=== PATIENT | male | born 1975 | race African-American/Black ===

== ENCOUNTER 2018-08-15 06:09 | Inpatient (IN) | payer SELFPAY ==
[2018-08-15 06:33] LABS: Absolute Lymphocytes (CBC) 3.7 K/uL (0.7-4.9); Absolute Monocytes 0.7 K/uL (0.1-1.3); Absolute Neutrophil 4.1 K/uL (1.8-8.0); Basophils % 0.8 % (0-1.3); Eosinophils % 1.4 % (0-4.4); Hematocrit 43.3 % (39.6-49.0); Lymphocytes % 42.7 % (15.3-44.8); MPV 8.2 fL (7.6-11.3); Monocytes % 7.9 % (3.3-12.3); RBC Red Blood Cell Count 5.01 M/uL (4.33-5.43)
[2018-08-15] MEDS ORDERED: MORPHINE 4 MG/ML SYR ONE ×2 (06:37→07:33)
[2018-08-15] MEDS ORDERED: NA CHLORIDE 0.9% 1,000 ML ONE (06:38)
[2018-08-15] MEDS ORDERED: ONDANSETRON 4 MG/2 ML VIAL ONE (06:38)
[2018-08-15 06:51] LABS: ALT/SGPT 26 U/L (12-78); AST/SGOT 16 U/L (15-37); Albumin 3.7 g/dL (3.4-5.0); Alkaline Phosphatase 101 U/L (45-117); Bilirubin Direct < 0.1 mg/dL (0-0.2); Bilirubin Total 0.2 mg/dL (0.2-1.0); Lipase 66 U/L (73-393); Protein, Total 7.9 g/dL (6.4-8.2)
[2018-08-15 06:52] LABS: BUN Blood Urea Nitrogen 17 mg/dL (7-18); Bicarbonate 26 mmol/L (21-32); Glucose Level 121 mg/dL (74-106); Potassium 3.8 mmol/L (3.5-5.1); Sodium Level 142 mmol/L (136-145)
[2018-08-15] MEDS ORDERED: KETOROLAC 30 MG/ML INJ ONE (08:13)
--- NOTE | 2018-08-15 08:48 | RAD REPORT ---
EXAM DESCRIPTION: CT - Abdomen Pelvis W Contrast - 08/15/2018 8:27 am CLINICAL HISTORY: Abdominal pain. Diarrhea COMPARISON: 2016 TECHNIQUE: Computed axial tomography of the abdomen and pelvis was obtained. 100 cc Isovue-300 is ad ministered intravenously. Oral contrast was given. All CT scans are performed using dose optimization technique as appropriate and may include automated exposure control or mA/KV adjustment according to patient size. FINDINGS: The liver, spleen, pancreas, adrenals and right kidney appear unremarkable. A 4 centimeter left renal cyst containing calcification posteriorly is unchanged. The appendix is not seen. Diverticula stem from the colon. There is mild stranding adjacent to sigmoid colon. Small to moderate umbilical hernia contains fat IMPRESSION: Mild sigmoid diverticulitis
--- NOTE | 2018-08-15 09:05 | ER ---
Nurse's Notes [facility] Name: Pietro Maxwell Age: 43 yrs Sex: Male : 1975 Arrival Date: 08/15/2018 Time: 06:09 Bed 5 Private MD: Diagnosis: Diverticulitis of intestine, part unspecified, without perforation or abscess without bleeding Presentation: 08/15 06:20 Presenting complaint: Patient states: he is having abdominal pain since 0230 this bb morning with nausea also vomited x 1 and had 2 episodes of diarrhea. Pt has past history of pancreatitis and a bowel obstruction. Transition of care: patient was not received from another setting of care. Onset of symptoms was August 15, 2018 at 02:30. Risk Assessment: Do you want to hurt yourself or someone else? Patient reports no desire to harm self or others. Initial Sepsis Screen: Does the patient meet any 2 criteria? No. Patient's initial sepsis screen is negative. Does the patient have a suspected source of infection? No. Patient's initial sepsis screen is negative. Care prior to arrival: None. 06:20 Method Of Arrival: Ambulatory bb 06:20 Acuity: ELSA 3 bb Historical: - Allergies: 06:22 No Known Allergies; bb - Home Meds: 06:22 None [Active]; bb - PMHx: 06:22 Pancreatitis; bowel obstruction; bb - PSHx: 06:22 Cholecystectomy; bb - Immunization history:: Adult Immunizations up to date. - Social history:: Smoking status: Patient uses tobacco products, denies chronic smoking, but will smoke occasionally. - Ebola Screening: : No symptoms or risks identified at this time. Screenin:33 Abuse screen: Denies threats or abuse. Denies injuries from another. Nutritional ak1 screening: No deficits noted. Tuberculosis screening: No symptoms or risk factors identified. Fall Risk None identified. Assessment: 06:33 General: Appears uncomfortable, Behavior is calm, cooperative. Pain: Complains of pain ak1 in right lower quadrant and left lower quadrant. Neuro: No deficits noted. Cardiovascular: No deficits noted. Respiratory: No deficits noted. GI: Abdomen is round Abd is non tender X 4 quads. GI: Reports lower abdominal pain, nausea, since 0230. : No signs and/or symptoms were reported regarding the genitourinary system. EENT: No signs and/or symptoms were reported regarding the EENT system. Derm: No signs and/or symptoms reported regarding the dermatologic system. Musculoskeletal: No signs and/or symptoms reported regarding the musculoskeletal system. 06:49 Reassessment: Patient appears in no apparent distress at this time. No changes from ak1 previously documented assessment. Patient and/or family updated on plan of care and expected duration. Pain level reassessed. pt finished oral contrast bottle house quality control technician Mari notified. 07:01 Reassessment: report given to Shelley Monk RN and Chanda Diaz RN. ak1 07:30 Reassessment: Pt reports pain has increased again after initial morphine ss administration. Taryn Ballard NP notified. Additional dose of morphine ordered and administered. Pillow given for comfort. Pt is grateful for care received. Neuro: Level of Consciousness is awake, alert, obeys commands, Oriented to person, place, time, situation. Respiratory: Airway is patent Respiratory effort is even, unlabored, Respiratory pattern is regular, symmetrical. GI: Bowel sounds present X 4 quads. Reports lower abdominal pain, upper abdominal pain, cramping, nausea. Derm: Skin is intact, Skin is dry, Skin is pink, warm \T\ dry. normal. 07:33 Reassessment: awaiting for CT to be obtained. ss 08:21 Reassessment: Pt to CT at this time VIA wheelchair with ARTI Ratliff. ss 08:34 Reassessment: Pt back from CT now. ss 08:59 Reassessment: Taryn Balalrd NP at bedside discussing results and plan of care with ss patient and friend. 10:00 Reassessment: Patient appears in no apparent distress at this time. Patient and/or ss family updated on plan of care and expected duration. Pain level reassessed. Pt aware of admission for further evaluation, awaiting room assignment. 11:30 Reassessment: Patient appears in no apparent distress at this time. Patient and/or ss family updated on plan of care and expected duration. Pain level reassessed. awaiting room assignment. 12:29 Reassessment: Patient appears in no apparent distress at this time. Patient and/or ss family updated on plan of care and expected duration. Pain level reassessed. Patient is alert, oriented x 3, equal unlabored respirations, skin warm/dry/pink. pt reports pain is now 5/10. Still awaiting room assignment. Spoke with warehouse operations manager ESTHELA Waever who reports that bed assignment is pending awaiting discharge on floors. Patient states feeling better. Patient states symptoms have improved. 13:03 Reassessment: attempted to call report to second floor. Spoke with Katheryn who reports ss that it will be just a moment before the nurse can receive report. Vital Signs: 06:22 BP 140 / 95; Pulse 85; Resp 16 S; Temp 98.3(O); Pulse Ox 99% on R/A; Weight 117.93 kg bb (R); Height 6 ft. 0 in. (182.88 cm) (R); Pain 9/10; 07:36 BP 147 / 97; Pulse 80; Resp 18; Pulse Ox 98% ; sv 08:16 BP 133 / 79; Pulse 69; Resp 20; Pulse Ox 100% ; sv 12:24 BP 108 / 68; Pulse 68; Resp 18; Pulse Ox 100% ; sv 06:22 Body Mass Index 35.26 (117.93 kg, 182.88 cm) bb ED Course: 06:09 Patient arrived in ED. ds1 06:16 Taryn Ballard FNP-C is PHCP. kb 06:16 Radu Cross MD is Attending Physician. kb 06:21 Triage completed. bb 06:22 Arm band placed on Patient placed in an exam room, on a stretcher, on pulse oximetry. bb 06:32 Eun Rolon, RN is Primary Nurse. ak1 06:33 Patient has correct armband on for positive identification. Placed in gown. Bed in low ak1 position. Call light in reach. Side rails up X 1. Pulse ox on. NIBP on. 06:33 Initial lab(s) drawn, by me, sent to lab. Inserted saline lock: 22 gauge in right ak1 antecubital area, using aseptic technique. Blood collected. 08:25 CT Abd/Pelvis - W/Contrast In Process Unspecified. EDMS 09:04 Jackeline Girard MD is Hospitalizing Provider. kb 10:34 Urine Dipstick--Ancillary (enter results) Sent. sv 13:19 No provider procedures requiring assistance completed. ss 13:30 Patient admitted, IV remains in place. ss Administered Medications: 06:32 Drug: NS 0.9% 1000 ml Route: IV; Rate: 1000 ml; Site: right antecubital; ak1 09:02 Follow up: IV Status: Completed infusion; IV Intake: 1000ml ss 06:32 Drug: Zofran 4 mg Route: IVP; Site: right antecubital; ak1 06:50 Follow up: Response: No adverse reaction ak1 06:32 Drug: morphine 4 mg Route: IVP; Site: right antecubital; ak1 06:50 Follow up: Response: No adverse reaction ak1 07:30 Drug: morphine 4 mg Route: IVP; Site: right antecubital; ss 08:12 Follow up: Response: No adverse reaction; No change in condition ss 08:05 Drug: TORadol 30 mg Route: IVP; Site: right antecubital; ss 09:01 Follow up: Response: No adverse reaction; No change in condition ss 09:10 Drug: fentaNYL (PF) 50 mcg Route: IVP; Site: right antecubital; ss 10:07 Follow up: Response: No adverse reaction; Pain is decreased ss 09:15 Drug: Flagyl 500 mg Volume: 100 ml; Route: IVPB; Rate: 200 ml/hr; Infused Over: 30 ss mins; Site: right antecubital; 09:45 Follow up: IV Status: Completed infusion ss 10:08 Drug: Cipro 400 mg Volume: 200 ml; Route: IVPB; Infused Over: 60 mins; Site: right ss antecubital; 11:10 Follow up: Response: No adverse reaction; IV Status: Completed infusion; IV Intake: sv 200ml Intake: 09:02 IV: 1000ml; Total: 1000ml. ss 11:10 IV: 200ml; Total: 1200ml. sv Outcome: 09:05 Decision to Hospitalize by Provider. kb 13:20 Instructed on the need for admit. ss 13:30 Admitted to Med/surg accompanied by tech, via wheelchair, room 229, Report called to sherin Campa RN 13:30 Condition: good 13:31 Patient left the ED. ss Signatures: Dispatcher [employer] EDMS Taryn Ballard, MIGUEL SONI-Chanda Lima RN RN Indira Oliveira dsDonna Avila RN RN bb Smirch, Shelby, RN RN Eun Rolon RN RN ak1 Corrections: (The following items were deleted from the chart) : Discharged to home ambulatory, ss ss Condition: [facility] : Discharge instructions given to patient, family, Instructed on discharge ss instructions, follow up and referral plans. medication usage, Demonstrated understanding of instructions, follow-up care, medications, Prescriptions given X 1, ss : IV discontinued, intact, bleeding controlled, No redness/swelling at site. ss Pressure dressing applied, ss
--- NOTE | 2018-08-15 09:06 | EDPHYS ---
Physician Documentation [facility] Name: Pietro Maxwell Age: 43 yrs Sex: Male : 1975 Arrival Date: 08/15/2018 Time: 06:09 Bed 5 Private MD: ED Physician Radu Cross HPI: 08/15 06:38 This 43 yrs old Black Male presents to ER via Ambulatory with complaints of Dizziness, kb Abdominal Pain. 06:38 The patient presents with abdominal pain in the lower abdomen. Onset: The kb symptoms/episode began/occurred this morning, at 02:30. The symptoms do not radiate. Associated signs and symptoms: Pertinent positives: nausea and vomiting, Pertinent negatives: anorexia, blood in stools, chest pain, constipation, diarrhea, dysuria, fever, headache, hematuria, palpitations, shortness of breath, testicular pain, vomiting blood. The symptoms are described as constant. Modifying factors: The symptoms are alleviated by nothing, the symptoms are aggravated by nothing. Severity of pain: At its worst the pain was moderate in the emergency department the pain is unchanged. The patient has not experienced similar symptoms in the past. The patient has not recently seen a physician. Historical: - Allergies: 06:22 No Known Allergies; bb - Home Meds: 06:22 None [Active]; bb - PMHx: 06:22 Pancreatitis; bowel obstruction; bb - PSHx: 06:22 Cholecystectomy; bb - Immunization history:: Adult Immunizations up to date. - Social history:: Smoking status: Patient uses tobacco products, denies chronic smoking, but will smoke occasionally. - Ebola Screening: : No symptoms or risks identified at this time. ROS: 06:33 Constitutional: Negative for fever, chills, and weight loss, ENT: Negative for injury, kb pain, and discharge, Neck: Negative for injury, pain, and swelling, Cardiovascular: Negative for chest pain, palpitations, and edema, Respiratory: Negative for shortness of breath, cough, wheezing, and pleuritic chest pain, MS/Extremity: Negative for injury and deformity, Skin: Negative for injury, rash, and discoloration. 06:33 Abdomen/GI: Positive for abdominal pain, nausea and vomiting, Negative for diarrhea, constipation, abdominal cramps, abdominal distension, anorexia. 06:33 Neuro: Positive for dizziness, Negative for altered mental status, gait disturbance, headache, hearing loss, loss of consciousness, numbness, seizure activity, speech changes, syncope, near syncope, tingling, tinnitus, tremor, visual changes, weakness. Exam: 06:32 Constitutional: This is a well developed, well nourished patient who is awake, alert, kb and in no acute distress. Head/Face: Normocephalic, atraumatic. ENT: Nares patent. No nasal discharge, no septal abnormalities noted. Tympanic membranes are normal and external auditory canals are clear. Oropharynx with no redness, swelling, or masses, exudates, or evidence of obstruction, uvula midline. Mucous membranes moist. Neck: Trachea midline, no thyromegaly or masses palpated, and no cervical lymphadenopathy. Supple, full range of motion without nuchal rigidity, or vertebral point tenderness. No Meningismus. Chest/axilla: Normal chest wall appearance and motion. Nontender with no deformity. No lesions are appreciated. Cardiovascular: Regular rate and rhythm with a normal S1 and S2. No gallops, murmurs, or rubs. Normal PMI, no JVD. No pulse deficits. Respiratory: Lungs have equal breath sounds bilaterally, clear to auscultation and percussion. No rales, rhonchi or wheezes noted. No increased work of breathing, no retractions or nasal flaring. Skin: Warm, dry with normal turgor. Normal color with no rashes, no lesions, and no evidence of cellulitis. MS/ Extremity: Pulses equal, no cyanosis. Neurovascular intact. Full, normal range of motion. Neuro: Awake and alert, GCS 15, oriented to person, place, time, and situation. Cranial nerves II-XII grossly intact. Motor strength 5/5 in all extremities. Sensory grossly intact. Cerebellar exam normal. Normal gait. 06:32 Abdomen/GI: Inspection: obese Bowel sounds: normal, in all quadrants, Palpation: soft, in all quadrants, mild abdominal tenderness, in the left lower quadrant, moderate abdominal tenderness, in the right lower quadrant. Vital Signs: 06:22 BP 140 / 95; Pulse 85; Resp 16 S; Temp 98.3(O); Pulse Ox 99% on R/A; Weight 117.93 kg bb (R); Height 6 ft. 0 in. (182.88 cm) (R); Pain 9/10; 07:36 BP 147 / 97; Pulse 80; Resp 18; Pulse Ox 98% ; sv 08:16 BP 133 / 79; Pulse 69; Resp 20; Pulse Ox 100% ; sv 12:24 BP 108 / 68; Pulse 68; Resp 18; Pulse Ox 100% ; sv 06:22 Body Mass Index 35.26 (117.93 kg, 182.88 cm) bb MDM: 06:16 Patient medically screened. kb 06:32 Data reviewed: vital signs, nurses notes. Data interpreted: Pulse oximetry: on room air kb is 99 %. Interpretation: normal. 09:04 Counseling: I had a detailed discussion with the patient and/or guardian regarding: the kb historical points, exam findings, and any diagnostic results supporting the discharge/admit diagnosis, lab results, radiology results, the need for further work-up and treatment in the hospital. Physician consultation: Jackeline Girard MD was contacted at 09:04, regarding admission, to the medical/surgical unit. and will see patient in ED, shortly. 08/15 06:17 Order name: Basic Metabolic Panel; Complete Time: 06:53 kb 08/15 06:17 Order name: CBC with Diff; Complete Time: 06:47 kb 08/15 06:22 Order name: Lipase; Complete Time: 06:52 kb 08/15 06:22 Order name: Hepatic Function; Complete Time: 06:52 kb 08/15 09:23 Order name: UDS; Complete Time: 10:23 kb 08/15 10:08 Order name: Urine Dipstick--Ancillary (enter results) em1 08/15 06:22 Order name: CT Abd/Pelvis - W/Contrast; Complete Time: 08:50 kb 08/15 10:57 Order name: Urine Dipstick-Ancillary; Complete Time: 10:59 EDMS 08/15 06:17 Order name: IV Saline Lock; Complete Time: 06:32 kb 08/15 06:17 Order name: Labs collected and sent; Complete Time: 06:32 kb 08/15 06:17 Order name: Urine Dipstick-Ancillary (obtain specimen); Complete Time: 10:07 kb Administered Medications: 06:32 Drug: NS 0.9% 1000 ml Route: IV; Rate: 1000 ml; Site: right antecubital; ak1 09:02 Follow up: IV Status: Completed infusion; IV Intake: 1000ml ss 06:32 Drug: Zofran 4 mg Route: IVP; Site: right antecubital; ak1 06:50 Follow up: Response: No adverse reaction ak1 06:32 Drug: morphine 4 mg Route: IVP; Site: right antecubital; ak1 06:50 Follow up: Response: No adverse reaction ak1 07:30 Drug: morphine 4 mg Route: IVP; Site: right antecubital; ss 08:12 Follow up: Response: No adverse reaction; No change in condition ss 08:05 Drug: TORadol 30 mg Route: IVP; Site: right antecubital; ss 09:01 Follow up: Response: No adverse reaction; No change in condition ss 09:10 Drug: fentaNYL (PF) 50 mcg Route: IVP; Site: right antecubital; ss 10:07 Follow up: Response: No adverse reaction; Pain is decreased ss 09:15 Drug: Flagyl 500 mg Volume: 100 ml; Route: IVPB; Rate: 200 ml/hr; Infused Over: 30 ss mins; Site: right antecubital; 09:45 Follow up: IV Status: Completed infusion ss 10:08 Drug: Cipro 400 mg Volume: 200 ml; Route: IVPB; Infused Over: 60 mins; Site: right ss antecubital; 11:10 Follow up: Response: No adverse reaction; IV Status: Completed infusion; IV Intake: sv 200ml Disposition: 08/16 06:21 Co-signature as Attending Physician, Radu Cross MD I agree with the assessment and 4 plan of care. Disposition: 08/15/18 09:05 Hospitalization ordered by Jackeline Girard for Observation. Preliminary diagnosis is Diverticulitis of intestine, part unspecified, without perforation or abscess without bleeding. - Bed requested for Telemetry/MedSurg (observation). - Status is Observation. ss - Condition is Stable. - Problem is new. - Symptoms are unchanged. UTI on Admission? No Signatures: Dispatcher [employer] EDMS Taryn Ballard FNP-C FNP-Donna Hagan RN RN Shelley Villarreal RN RN ss Eun Rolon RN RN ak1 Meg Flores RN Radu Del Angel MD MD 4 Chanda Moy RN sv Corrections: (The following items were deleted from the chart) 08/15 06:33 06:32 Constitutional: This is a well developed, well nourished patient who is awake, kb alert, and in no acute distress. Head/Face: Normocephalic, atraumatic. ENT: Nares patent. No nasal discharge, no septal abnormalities noted. Tympanic membranes are normal and external auditory canals are clear. Oropharynx with no redness, swelling, or masses, exudates, or evidence of obstruction, uvula midline. Mucous membranes moist. Neck: Trachea midline, no thyromegaly or masses palpated, and no cervical lymphadenopathy. Supple, full range of motion without nuchal rigidity, or vertebral point tenderness. No Meningismus. Chest/axilla: Normal chest wall appearance and motion. Nontender with no deformity. No lesions are appreciated. Cardiovascular: Regular rate and rhythm with a normal S1 and S2. No gallops, murmurs, or rubs. Normal PMI, no JVD. No pulse deficits. Respiratory: Lungs have equal breath sounds bilaterally, clear to auscultation and percussion. No rales, rhonchi or wheezes noted. No increased work of breathing, no retractions or nasal flaring. Skin: Warm, dry with normal turgor. Normal color with no rashes, no lesions, and no evidence of cellulitis. MS/ Extremity: Pulses equal, no cyanosis. Neurovascular intact. Full, normal range of motion. kb 13:02 09:05 Hospitalization Ordered by Jackeline Girard MD for Observation. Preliminary diagnosis df is Diverticulitis of intestine, part unspecified, without perforation or abscess without bleeding. Bed requested for Telemetry/MedSurg (observation). Status is Observation. Condition is Stable. Problem is new. Symptoms are unchanged. UTI on Admission? No. kb 13:31 13:02 08/15/2018 09:05 Hospitalization Ordered by Jackeline Girard MD for Observation. ss Preliminary diagnosis is Diverticulitis of intestine, part unspecified, without perforation or abscess without bleeding. Bed requested for Telemetry/MedSurg (observation). Status is Observation. Condition is Stable. Problem is new. Symptoms are unchanged. UTI on Admission? No. df
[2018-08-15] MEDS ORDERED: METRONIDAZOLE 500mg IVPB 500 MG/100 ML BAG IV ONE (09:18)
[2018-08-15] MEDS ORDERED: CIPROFLOXACIN 400mg IV 400 MG/200 ML BAG IV ONE (09:18)
[2018-08-15] MEDS ORDERED: FENTANYL CITR 100 MCG/2 ML ONE (09:18)
[2018-08-15 10:22] LABS: Barbiturates NEGATIVE (NEGATIVE); Benzodiazepines NEGATIVE (NEGATIVE); Cocaine NEGATIVE (NEGATIVE); METHAMPHETAM NEGATIVE (NEGATIVE); Methadone NEGATIVE (NEGATIVE); Opiates POSITIVE (NEGATIVE); Phencyclidine NEGATIVE (NEGATIVE); THC Cannibis NEGATIVE (NEGATIVE)
[2018-08-15 10:56] LABS: Urine Blood TRACE (NEG); Urine Glucose NEGATIVE (NEG); Urine Protein NEGATIVE (NEG); Urine Specific Gravity >1.030 (1.005-1.030)
[2018-08-15] MEDS: NA CHLORIDE 0.9% 1,000 ML IV SCH (14:36)
[2018-08-15] MEDS: ENOXAPARIN 40 MG/0.4 ML SQ SCH (14:36)
[2018-08-15] MEDS ORDERED: MORPHINE 2 MG/ML SYR IV PRN (18:22)
--- NOTE | 2018-08-15 18:33 | P.HP ---
Patient History Date of Service: 08/15/18 Reason for admission: Intractable Abdominal pain History of Present Illness: This is a 43-year-old male with a past medical history, history of lap choly in 2004 and an appendectomy admitted for intractable abdominal pain. Per patient, abdominal pain started the morning of admission along with dizziness. Describes as generalize, sharp and throbbing. This is associated with nausea and vomiting. Describes this pain as constant and very generalized. His bowel movements have been normal, last normal bowel movement was the morning of admission. Per patient, he has had a history of pancreatitis and bowel obstruction back in 2006. He was brought to the ER with by a friend. In the ER , he received 8 mg of morphine, fentanyl as well as 1 time Toradol which did not help his pain he remained hemodynamically stable low, he was started on IV Cipro and Flagyl. At the time of my exam, patient was alert oriented x3, in very mild distress and hemodynamically stable. He was admitted for intractable abdominal pain for pain control Allergies No Known Allergies Allergy (Unverified 01/23/17 16:10) Home Medications: NK [No Home Meds] 08/15/18 - Past Medical/Surgical History Diabetic: No Past Medical History: Patient denies medical history -: Cholecystectomy -: Appendectomy - Social History Smoking Status: Current some day smoker Alcohol use: No CD- Drugs: No Caffeine use: Yes Place of Residence: Home Review of Systems 10-point ROS is otherwise unremarkable Physical Examination - Vital Signs Temperature: 97.9 F Blood Pressure: 133/85 Pulse: 71 Respirations: 19 Pulse Ox (%): 98 - Physical Exam General: Alert, In no apparent distress, Oriented x3 HEENT: Atraumatic, PERRLA, Mucous membr. moist/pink, EOMI, Sclerae nonicteric Neck: Supple, 2+ carotid pulse no bruit, No LAD, Without JVD or thyroid abnormality Respiratory: Clear to auscultation bilaterally, Normal air movement Cardiovascular: Regular rate/rhythm, Normal S1 S2 Gastrointestinal: Normal bowel sounds, Tenderness (Mild tenderness on deep palpation, generalized) Musculoskeletal: No tenderness Integumentary: No rashes Neurological: Normal gait, Normal speech, Normal strength at 5/5 x4 extr, Normal tone, Normal affect Lymphatics: No axilla or inguinal lymphadenopathy - Studies Laboratory Data (last 24 hrs) 08/15/18 06:22: Total Bilirubin 0.2, AST 16, ALT 26, Alkaline Phosphatase 101, Lipase 66 L 08/15/18 06:22: WBC 8.7, Hgb 14.2, Hct 43.3, Plt Count 230 08/15/18 06:22: Sodium 142, Potassium 3.8, BUN 17, Creatinine 1.01, Glucose 121 H Assessment and Plan - Problems (Diagnosis) (1) Abdominal pain Current Visit: Yes Status: Acute Qualifiers: Abdominal location: generalized Qualified Code(s): R10.84 - Generalized abdominal pain (2) Diverticulitis Current Visit: Yes Status: Acute (3) History of pancreatitis Current Visit: Yes Status: Chronic - Plan This is a 43-year-old male with: Generalized abdominal pain Intractable nausea, improving Mild diverticulitis Admit to floor Keep NPO Pain control with IV morphine. Though patient requesting Demerol and Dilaudid, we will avoid using this. Start IV fluids, normal saline at 100 cc/hr Start IV antibiotics Cipro and Flagyl. DVT prophylaxis: Lovenox GI prophylaxis: None Diet: NPO Disposition: Possible discharge in the next 24-48 hr if symptoms improve. - Advance Directives Does patient have a Living Will: No Does patient have a Durable POA for Healthcare: No
[2018-08-15] MEDS: CIPROFLOXACIN 400mg IV 400 MG/200 ML BAG IV SCH (21:36)
[2018-08-15] MEDS: FENTANYL CITR 100 MCG/2 ML IV PRN (22:56)
[2018-08-15] MEDS: TEMAZEPAM 15 MG CAP PO PRN (22:56)
[2018-08-16] MEDS: METRONIDAZOLE 500mg IVPB 500 MG/100 ML BAG IV SCH ×3 (01:04→17:06)
[2018-08-16] MEDS: NA CHLORIDE 0.9% 1,000 ML IV SCH ×3 (01:45→20:25)
[2018-08-16] MEDS: FENTANYL CITR 100 MCG/2 ML IV PRN ×2 (03:42→17:07)
[2018-08-16 06:36] LABS: ALT/SGPT 27 U/L (12-78); AST/SGOT 17 U/L (15-37); Albumin 2.9 g/dL (3.4-5.0); Alkaline Phosphatase 79 U/L (45-117); BUN Blood Urea Nitrogen 15 mg/dL (7-18); Bicarbonate 25 mmol/L (21-32); Bilirubin Total 0.3 mg/dL (0.2-1.0); Glucose Level 100 mg/dL (74-106); Potassium 4.1 mmol/L (3.5-5.1); Protein, Total 6.5 g/dL (6.4-8.2); Sodium Level 143 mmol/L (136-145)
[2018-08-16 07:08] LABS: Absolute Lymphocytes (CBC) 3.7 K/uL (0.7-4.9); Absolute Monocytes 0.4 K/uL (0.1-1.3); Absolute Neutrophil 2.2 K/uL (1.8-8.0); Eosinophils % 2.6 % (0-4.4); Hematocrit 38.9 % (39.6-49.0); Lymphocytes % 55.8 % (15.3-44.8); MPV 9.1 fL (7.6-11.3); Monocytes % 6.5 % (3.3-12.3); RBC Red Blood Cell Count 4.54 M/uL (4.33-5.43)
[2018-08-16 07:43] LABS: Magnesium 2.1 mg/dL (1.8-2.4)
[2018-08-16] MEDS ORDERED: HYDROMORPHONE HCL 1 MG/ML INJ IV ONE (07:47)
--- NOTE | 2018-08-16 08:02 | P.PN ---
Date of Service: 08/15/18 Called to see patient regarding pain. He was found have mild diverticulitis on a CT scan. He did have a urine drug screen which was positive for opiates; however, he was given morphine yesterday morning in the emergency room prior to the drug screen being done. He also has a umbilical hernia containing fat. He has mild moderate tenderness on exam. Will give him pain medication at this time x1 dose. Will see if he can tolerate diet in the morning. If his symptoms are worsening may need surgical consultation verses a GI consultation for 2nd opinion.
[2018-08-16] MEDS: CIPROFLOXACIN 400mg IV 400 MG/200 ML BAG IV SCH ×2 (08:43→20:24)
[2018-08-16] MEDS: ENOXAPARIN 40 MG/0.4 ML SQ SCH (08:43)
[2018-08-16] MEDS: ONDANSETRON 4 MG/2 ML VIAL IV PRN (17:06)
--- NOTE | 2018-08-16 17:46 | P.PN ---
Subjective Date of Service: 08/16/18 Chief Complaint: Intractable Abdominal pain Subjective: Improving Patient seen and examined at bedside. No family at bedside. Chart reviewed and case discussed with nursing staff. Review of Systems 10-point ROS is otherwise unremarkable Physical Examination - Vital Signs Temperature: 97.9 F Blood Pressure: 133/85 Pulse: 71 Respirations: 19 Pulse Ox (%): 98 - Physical Exam General: Alert, In no apparent distress, Oriented x3 HEENT: Atraumatic, PERRLA, EOMI Neck: Supple, JVD not distended Respiratory: Clear to auscultation bilaterally, Normal air movement Cardiovascular: Regular rate/rhythm, Normal S1 S2 Gastrointestinal: Normal bowel sounds, No tenderness Musculoskeletal: No tenderness Integumentary: No rashes Neurological: Normal speech, Normal tone, Normal affect Lymphatics: No axilla or inguinal lymphadenopathy Assessment And Plan - Current Problems (Diagnosis) (1) Abdominal pain Current Visit: Yes Status: Acute Qualifiers: Abdominal location: generalized Qualified Code(s): R10.84 - Generalized abdominal pain (2) Diverticulitis Current Visit: Yes Status: Acute (3) History of pancreatitis Current Visit: Yes Status: Chronic - Plan This is a 43-year-old male with: Generalized abdominal pain Intractable nausea, improving Mild diverticulitis Improved abdominal exam. Patient states that he feels better after receiving IV Dilaudid. He states that when he had pancreatitis in 2006, he was given Dilaudid and Demerol which greatly helped his pain. Admit to floor Will start clear liquids, advance tolerated. In control. If no improvement, will consult General Surgery. We do not have gastroenterology available unfortunately. Continue IV fluids, normal saline at 100 cc/hr Continue IV antibiotics Cipro and Flagyl. DVT prophylaxis: Lovenox GI prophylaxis: None Diet: Clear liquid diet, advance as tolerated Disposition: Possible discharge in the next 24-48 hr if symptoms improve.
[2018-08-16] MEDS: HYDROMORPHONE HCL 1 MG/ML INJ IV PRN (20:25)
[2018-08-16] MEDS: TEMAZEPAM 15 MG CAP PO PRN ×2 (20:25→23:04)
[2018-08-17] MEDS: METRONIDAZOLE 500mg IVPB 500 MG/100 ML BAG IV SCH ×3 (00:53→16:19)
[2018-08-17] MEDS: HYDROMORPHONE HCL 1 MG/ML INJ IV PRN ×3 (02:24→12:15)
[2018-08-17] MEDS: ONDANSETRON 4 MG/2 ML VIAL IV PRN (04:02)
[2018-08-17] MEDS: NA CHLORIDE 0.9% 1,000 ML IV SCH ×2 (06:31→16:19)
[2018-08-17] MEDS: CIPROFLOXACIN 400mg IV 400 MG/200 ML BAG IV SCH ×2 (08:10→23:26)
[2018-08-17] MEDS: ENOXAPARIN 40 MG/0.4 ML SQ SCH (08:11)
[2018-08-17] MEDS ORDERED: ONDANSETRON 4 MG/2 ML VIAL IV PRN (10:00)
--- NOTE | 2018-08-17 14:08 | P.CNS ---
Date of Consult: 08/17/18 PC: This 43-year-old male presented emergency room with severe abdominal pain for diagnosis and treatment. HPC: Patient woke up 2 days ago. Was having lower abdominal pain. Rather nondescript at that time. Gradually intensified. Now located in left lower quadrant. PMH: Hypertension in the past, possible diabetes, pancreatitis PSHx: Previous cholecystectomy, appendectomy SOC: No known allergies SYS REVIEW: No cough, wheeze, shortness of breath. No chest pain or palpitations. Has significant sleep apnea with snoring. Denies any urinary complaints. Had 1 episode similar to this in the past, but it turned out to be pancreatitis. O/E awake alert vital signs are stable HEENT: Within normal limits Chest: Chest movement equal bilaterally ABD: Soft nontender no guarding or rebound LOCO: Intact DATA: CT scan reviewed, shows mild diverticulitis, no abscess or perforation. White cell count is back to normal IMPRESSION: Abdominal pain, secondary to diverticulitis PLAN: This patient, says is much improved today. Will discontinue his IV pain medication. Will change ordered p.o. pain meds. Anticipate discharge in a.m.. Also briefly discussed his ongoing health care. He will need a primary care physician, who can follow up his possible blood pressure and diabetes easiest he will also need a tile setter for his colonoscopy in 4-6 weeks. I strongly advise him to get a sleep study done as well so that he can get put on a CPAP device. He understands and is content with this course of treatment.
[2018-08-17] MEDS ORDERED: HYDROCODONE/APAP 5/325 MG TAB PO PRN (14:23)
--- NOTE | 2018-08-17 14:37 | P.PN ---
Subjective Date of Service: 08/17/18 Chief Complaint: Intractable Abdominal pain Subjective: Improving Patient seen and examined at bedside. No family at bedside. Chart reviewed and case discussed with nursing staff. Preparation, pain slightly improved. No acute events noted overnight. Patient is still receiving IV Dilaudid every 4 hr. Review of Systems 10-point ROS is otherwise unremarkable Physical Examination - Vital Signs Temperature: 97.4 F Blood Pressure: 121/69 Pulse: 64 Respirations: 18 Pulse Ox (%): 98 - Physical Exam General: Alert, In no apparent distress, Oriented x3 HEENT: Atraumatic, PERRLA, EOMI Neck: Supple, JVD not distended Respiratory: Clear to auscultation bilaterally, Normal air movement Cardiovascular: Regular rate/rhythm, Normal S1 S2 Gastrointestinal: Normal bowel sounds, Soft and benign, No tenderness Musculoskeletal: No tenderness Integumentary: No rashes Neurological: Normal speech, Normal tone, Normal affect Lymphatics: No axilla or inguinal lymphadenopathy Assessment And Plan - Current Problems (Diagnosis) (1) Abdominal pain Current Visit: Yes Status: Acute Qualifiers: Abdominal location: generalized Qualified Code(s): R10.84 - Generalized abdominal pain (2) Diverticulitis Current Visit: Yes Status: Acute (3) History of pancreatitis Current Visit: Yes Status: Chronic - Plan This is a 43-year-old male with: Generalized abdominal pain Intractable nausea, improving Mild diverticulitis Improved abdominal exam. Improved abdominal pain Discontinue IV pain medications. Will continue oral pain control at this time. Will start clear liquids, advance as tolerated. We do not have gastroenterology available at this time. General surgery consulted, recommendations greatly appreciated. Continue IV fluids, normal saline at 100 cc/hr Continue IV antibiotics Cipro and Flagyl. DVT prophylaxis: Lovenox GI prophylaxis: None Diet: Clear liquid diet, advance as tolerated Disposition: Possible discharge in the next 24-48 hr if symptoms improve.
[2018-08-17] MEDS ORDERED: HYDROCODONE/APAP 10/325 TAB PO ONE (23:18)
[2018-08-17] MEDS: TEMAZEPAM 15 MG CAP PO PRN (23:44)
[2018-08-18] MEDS: METRONIDAZOLE 500mg IVPB 500 MG/100 ML BAG IV SCH ×2 (00:30→09:07)
[2018-08-18] MEDS: NA CHLORIDE 0.9% 1,000 ML IV SCH (01:42)
[2018-08-18] MEDS: CIPROFLOXACIN 400mg IV 400 MG/200 ML BAG IV SCH (09:07)
[2018-08-18] MEDS: ENOXAPARIN 40 MG/0.4 ML SQ SCH (09:08)
--- NOTE | 2018-08-18 12:12 | P.DS ---
Admission Date: 08/17/18 Discharge Date: 08/18/18 Primary Care Provider: None Disposition: ROUTINE DISCHARGE Discharge Condition: GOOD Reason for Admission: Intractable Abdominal pain Consultations: General Surgery, Dr. Quinonez - Problems (1) Abdominal pain Current Visit: Yes Status: Resolved Qualifiers: Abdominal location: generalized Qualified Code(s): R10.84 - Generalized abdominal pain (2) Diverticulitis Current Visit: Yes Status: Acute (3) History of pancreatitis Current Visit: Yes Status: Chronic Brief History of Present Illness: This is a 43-year-old male with a past medical history, history of lap choly in 2004 and an appendectomy admitted for intractable abdominal pain. Per patient, abdominal pain started the morning of admission along with dizziness. Describes as generalize, sharp and throbbing. This is associated with nausea and vomiting. Describes this pain as constant and very generalized. His bowel movements have been normal, last normal bowel movement was the morning of admission. Per patient, he has had a history of pancreatitis and bowel obstruction back in 2006. He was brought to the ER with by a friend. In the ER , he received 8 mg of morphine, fentanyl as well as 1 time Toradol which did not help his pain he remained hemodynamically stable low, he was started on IV Cipro and Flagyl. At the time of my exam, patient was alert oriented x3, in very mild distress and hemodynamically stable. He was admitted for intractable abdominal pain for pain control Hospital Course: Patient was admitted to the floor. He was kept NPO, his pain was controlled with IV Dilaudid. His pain was not improving and therefore general surgery was consulted. No surgical intervention was planned. He was weaned off IV pain medications. Pain was controlled with Bazine. patient's diet was gradually increased and prior to discharge patient was tolerating a GI soft diet, his pain was well controlled and he was ambulating without any concerns. He was discharged with PO flagyl and cipro to complete a 7 day course. He was instructed to follow up with GI as an outpatient for colonoscopy and further workup. At the time of discharge, he was alert and oriented x 3, and hemodynamically stable. Vital Signs/Physical Exam: Temp Pulse Resp BP Pulse Ox 97.8 F 66 18 134/77 98 08/18/18 08:00 08/18/18 08:00 08/18/18 08:00 08/18/18 08:00 08/18/18 08:00 General: Alert, In no apparent distress, Oriented x3 HEENT: Atraumatic, PERRLA, EOMI Neck: Supple, JVD not distended Respiratory: Clear to auscultation bilaterally, Normal air movement Cardiovascular: Regular rate/rhythm, Normal S1 S2 Gastrointestinal: Normal bowel sounds, No tenderness Musculoskeletal: No tenderness Integumentary: No rashes Neurological: Normal speech, Normal tone, Normal affect Lymphatics: No axilla or inguinal lymphadenopathy Laboratory Data at Discharge: WBC 6.5 K/uL (4.3-10.9) D 08/16/18 05:51 Hgb 12.8 g/dL (13.6-17.9) L 08/16/18 05:51 Hct 38.9 % (39.6-49.0) L 08/16/18 05:51 Plt Count 188 K/uL (152-406) 08/16/18 05:51 Sodium 143 mmol/L (136-145) 08/16/18 05:51 Potassium 4.1 mmol/L (3.5-5.1) 08/16/18 05:51 BUN 15 mg/dL (7-18) 08/16/18 05:51 Creatinine 0.94 mg/dL (0.55-1.3) 08/16/18 05:51 Glucose 100 mg/dL (74-106) 08/16/18 05:51 Magnesium 2.1 mg/dL (1.8-2.4) 08/16/18 05:51 Total Bilirubin 0.3 mg/dL (0.2-1.0) 08/16/18 05:51 AST 17 U/L (15-37) 08/16/18 05:51 ALT 27 U/L (12-78) 08/16/18 05:51 Alkaline Phosphatase 79 U/L (45-117) 08/16/18 05:51 Lipase 66 U/L (73-393) L 08/15/18 06:22 Home Medications: Ciprofloxacin HCl 500 mg PO Q12HR #8 tablet 08/18/18 Tramadol HCl [Ultram] 50 mg PO Q6H PRN #15 tablet 08/18/18 metroNIDAZOLE [Flagyl] 500 mg PO Q8H #12 tablet 08/18/18 New Medications: Ciprofloxacin HCl 500 mg PO Q12HR #8 tablet metroNIDAZOLE [Flagyl] 500 mg PO Q8H #12 tablet Tramadol HCl [Ultram] 50 mg PO Q6H PRN #15 tablet PRN Reason: Pain Scale 5-7 (Moderate) Patient Discharge Instructions: Please follow up with your primary care physician in 1 week. List of primary care physicians provided to you. Please follow up with Gastroenterology in 1-2 weeks. Information provided to you. Diet: Soft, as tolerated. Activity: Ad latrice Followup: Blair Soto MD [ASSOCIATE-ACTIVE - CAN ADMIT] - 1-2 Weeks Time spent managing pt's care (in minutes): 55
== END 2018-08-18 11:30 | disposition home or self-care (01) | DRG 392 ==
LOC: ER 06:09 → ERHOLD 09:29 → 2ND 13:29 → OBSVTOIN 08-17 08:31
PROVIDERS: ADMIT Family Medicine; ATTEND Family Medicine
DX: K57.92 Diverticulitis of intestine, part unspecified, without perforation or abscess without bleeding (principal); F17.210 Nicotine dependence, cigarettes, uncomplicated; K42.9 Umbilical hernia without obstruction or gangrene; I10 Essential (primary) hypertension; G47.30 Sleep apnea, unspecified
CPT/HCPCS: 36415; 74177; 80048; 80053; 80076; 80307; 81003; 83605; 83690; 83735; 85025; 94760; 96361; 96365; 96367; 96375; 99285; G0378; J0744; J1170; J1650; J2270; J2405; J3010; J7030; Q9967

== ENCOUNTER 2018-12-08 11:12 | Emergency (ER) | payer SELFPAY ==
[2018-12-08 12:35] LABS: Absolute Lymphocytes (CBC) 4.4 K/uL (0.7-4.9); Basophils % 0.8 % (0-1.3); Eosinophils % 1.6 % (0-4.4); Hematocrit 51.1 % (39.6-49.0); Lymphocytes % 58.3 % (15.3-44.8); MPV 9.1 fL (7.6-11.3); Monocytes % 8.6 % (3.3-12.3); RBC Red Blood Cell Count 6.01 M/uL (4.33-5.43)
[2018-12-08] MEDS ORDERED: NA CHLORIDE 0.9% 1,000 ML ONE (12:38)
[2018-12-08] MEDS ORDERED: FENTANYL CITR 100 MCG/2 ML ONE (12:38)
[2018-12-08] MEDS ORDERED: ONDANSETRON 4 MG/2 ML VIAL ONE (12:38)
[2018-12-08 12:49] LABS: ALT/SGPT 54 U/L (12-78); AST/SGOT 41 U/L (15-37); Albumin 4.5 g/dL (3.4-5.0); Alkaline Phosphatase 98 U/L (45-117); BUN Blood Urea Nitrogen 19 mg/dL (7-18); Bicarbonate 25 mmol/L (21-32); Bilirubin Direct < 0.1 mg/dL (0-0.2); Bilirubin Total 0.7 mg/dL (0.2-1.0); Glucose Level 97 mg/dL (74-106); Lipase 47 U/L (73-393); Protein, Total 9.6 g/dL (6.4-8.2); Sodium Level 141 mmol/L (136-145)
[2018-12-08 13:04] LABS: Blood Morphology Comment NOT SEEN (NOT SEEN); Platelet Estimate ADEQ
--- NOTE | 2018-12-08 13:10 | RAD REPORT ---
EXAM DESCRIPTION: CT - Abdomen Pelvis W Contrast - 12/08/2018 12:59 pm CLINICAL HISTORY: Abdominal pain, nausea and vomiting COMPARISON: July 2018 TECHNIQUE: Biphasic, helical CT imaging of the abdomen and pelvis was performed following 100 ml non -ionic IV contrast. No oral contrast administered. All CT scans are performed using dose optimization technique as appropriate and may include automated exposure control or mA/KV adjustment according to patient size. FINDINGS: No suspicious findings in the lung bases. The liver, spleen, and pancreas show no suspicious findings. Cholecystectomy clips are present. No bi liary tree dilatation. Symmetric renal function is seen with no hydronephrosis or suspicious renal mass. No pyelonephritis o r acute parenchymal process. No bladder abnormalities. No adrenal abnormalities. A 3.6 centimeter cys t in the medial left kidney is present. Calcification along the posterior wall has not changed from p rior imaging. No dilated bowel loops or bowel wall thickening. A few small mesenteric lymph nodes are present in th e central abdomen. No free air, free fluid or inflammatory stranding. No mass or bulky lymphadenopat hy. Small fat only umbilical hernia present. No suspicious bony findings. IMPRESSION: Contrast enhanced CT abdomen and pelvis imaging shows no surgically emergent finding. A few small mesenteric lymph nodes are present in the central abdomen and could indicate a mild nonsp ecific enteritis or mesenteric adenitis. Minimally complex left renal cyst stable from July.
[2018-12-08] MEDS ORDERED: PROMETHAZINE 25 MG/ML VIAL ONE (13:25)
[2018-12-08] MEDS ORDERED: MORPHINE 4 MG/ML SYR ONE (13:26)
[2018-12-08] MEDS ORDERED: metroNIDAZOLE 500 MG TABLET ONE (14:32)
[2018-12-08] MEDS ORDERED: CIPROFLOXACIN HCL 500 MG TAB ONE (14:32)
[2018-12-08] MEDS ORDERED: KETOROLAC 30 MG/ML INJ ONE (14:32)
[2018-12-08] MEDS ORDERED: MEPERIDINE HCL 25 MG/0.5 ML ONE (15:05)
--- NOTE | 2018-12-08 15:30 | ER ---
Nurse's Notes [facility] Name: Pietro Maxwell Age: 43 yrs Sex: Male : 1975 Arrival Date: 12/08/2018 Time: 11:16 Bed 20 Private MD: Diagnosis: Unspecified abdominal pain;Diarrhea, unspecified;Vomiting Presentation: 12/08 11:17 Presenting complaint: Patient states: Nausea, vomiting, abdominal pain for the past 3 aj1 days. Reports that he was admitted to this facility in August for diverticulitis and this feels the same. Transition of care: patient was not received from another setting of care. Onset of symptoms was December 05, 2018. Risk Assessment: Do you want to hurt yourself or someone else? Patient reports no desire to harm self or others. Initial Sepsis Screen: Does the patient meet any 2 criteria? No. Patient's initial sepsis screen is negative. Does the patient have a suspected source of infection? Yes: Acute abdominal pain. Care prior to arrival: None. 11:17 Method Of Arrival: Ambulatory aj1 11:17 Acuity: ELSA 3 aj1 Triage Assessment: 11:20 General: Appears in no apparent distress. uncomfortable, Behavior is calm, cooperative, aj1 appropriate for age. Pain: Complains of pain in abdomen Pain currently is 7 out of 10 on a pain scale. Neuro: Level of Consciousness is awake, alert, obeys commands, Oriented to person, place, time, situation. Cardiovascular: Patient's skin is warm and dry. Respiratory: Airway is patent Respiratory effort is even, unlabored, Respiratory pattern is regular, symmetrical. GI: Reports diarrhea, nausea, vomiting. Historical: - Allergies: 11:20 No Known Allergies; aj1 - Home Meds: 11:20 Dramamine oral oral for Nausea [Active]; aj1 - PMHx: 11:20 bowel obstruction; Pancreatitis; Diverticulitis; aj1 - Immunization history:: Flu vaccine is not up to date. - Social history:: Smoking status: Patient uses tobacco products, 1 cigarette per day. - Ebola Screening: : Patient denies travel to an Ebola-affected area in the 21 days before illness onset. Screenin:09 Abuse screen: Denies threats or abuse. Denies injuries from another. Nutritional ph screening: No deficits noted. Tuberculosis screening: No symptoms or risk factors identified. Fall Risk None identified. Assessment: 11:45 General: Appears in no apparent distress. uncomfortable, well groomed, Behavior is ph calm, cooperative, appropriate for age, Denies fever. Pain: Complains of pain in abdomen. Neuro: Level of Consciousness is awake, alert, obeys commands, Oriented to person, place, time, situation. Cardiovascular: Capillary refill < 3 seconds in bilateral fingers Patient's skin is warm and dry. Respiratory: Airway is patent Respiratory effort is even, unlabored, Respiratory pattern is regular, symmetrical. GI: Abdomen is round non-distended, Bowel sounds present X 4 quads. Abd is soft X 4 quads Reports lower abdominal pain, upper abdominal pain, diarrhea, bloody stool, nausea, vomiting. Derm: Skin is intact, is healthy with good turgor, Skin is pink, warm \\T\\ dry. Musculoskeletal: Circulation, motion, and sensation intact. Range of motion: intact in all extremities. 13:00 Reassessment: Patient appears in no apparent distress at this time. Patient and/or ph family updated on plan of care and expected duration. Pain level reassessed. Patient is alert, oriented x 3, equal unlabored respirations, skin warm/dry/pink. 14:00 Reassessment: Patient appears in no apparent distress at this time. Patient and/or ph family updated on plan of care and expected duration. Pain level reassessed. Patient is alert, oriented x 3, equal unlabored respirations, skin warm/dry/pink. 15:00 Reassessment: Patient appears in no apparent distress at this time. Patient and/or ph family updated on plan of care and expected duration. Pain level reassessed. Patient is alert, oriented x 3, equal unlabored respirations, skin warm/dry/pink. Pt placed up for d/c pt states that his pain has not been relieved after multiple medications and is requesting a stronger medicine, states, " The only thing that has worked for me before is Dilaudid." ERP notified, see MAR for orders. 15:38 Reassessment: Patient appears in no apparent distress at this time. Patient and/or ph family updated on plan of care and expected duration. Pain level reassessed. Patient is alert, oriented x 3, equal unlabored respirations, skin warm/dry/pink. Pt reports that pain has improved after IV Demerol, pt d/c home w/ family. Vital Signs: 11:20 BP 108 / 92; Pulse 93; Resp 18; Temp 97.9; Pulse Ox 98% on R/A; Weight 127.01 kg (R); aj1 Height 6 ft. 0 in. (182.88 cm) (R); Pain 7/10; 12:45 BP 104 / 86; Pulse 94; Resp 18; Pulse Ox 97% on R/A; ph 14:00 BP 110 / 78; Pulse 92; Resp 16; Pulse Ox 99% on R/A; ph 15:03 BP 114 / 87; Pulse 90; Resp 18; Pulse Ox 99% on R/A; ph 11:20 Body Mass Index 37.97 (127.01 kg, 182.88 cm) aj1 ED Course: 11:16 Patient arrived in ED. mr 11:19 Triage completed. aj1 11:20 Arm band placed on Patient placed in an exam room. aj1 11:22 Verenice Oneal, RN is Primary Nurse. ph 11:25 Jameel Castro MD is Attending Physician. rn 11:25 Charlie Humphreys NP is PHCP. pm1 11:26 Jameel Castro MD is Attending Physician. rn 12:24 Initial lab(s) drawn, by la, sent to lab. Inserted saline lock: 20 gauge in right upper iw arm, using aseptic technique. Blood collected. 15:03 Patient has correct armband on for positive identification. Bed in low position. Call ph light in reach. Side rails up X 1. Pulse ox on. NIBP on. 15:09 No provider procedures requiring assistance completed. ph 15:39 IV discontinued, intact, bleeding controlled, No redness/swelling at site. Pressure ph dressing applied. Administered Medications: 12:31 Drug: NS 0.9% 1000 ml Route: IV; Rate: 1000 ml; Site: right upper arm; ph 13:30 Follow up: Response: No adverse reaction; IV Status: Completed infusion; IV Intake: ph 1000ml 12:31 Drug: Zofran 4 mg Route: IVP; Site: right upper arm; ph 13:00 Follow up: Response: No adverse reaction; Nausea is decreased ph 12:31 Drug: fentaNYL (PF) 50 mcg Route: IVP; Site: right upper arm; ph 13:04 Follow up: Response: No adverse reaction; Pain is unchanged, physician notified tw2 13:17 Drug: Phenergan 12.5 mg Route: IVP; Site: right antecubital; tw2 15:00 Follow up: Response: No adverse reaction; Pain is decreased ph 13:19 Drug: morphine 4 mg Route: IVP; Site: right antecubital; tw2 13:45 Follow up: Response: No adverse reaction; Pain is unchanged, physician notified ph 14:25 Drug: TORadol 30 mg Route: IVP; Site: right upper arm; ph 15:01 Follow up: Response: No adverse reaction; Pain is unchanged, physician notified ph 14:26 Drug: Cipro 500 mg Route: PO; ph 15:01 Follow up: Response: No adverse reaction ph 14:26 Drug: Flagyl 500 mg Route: PO; ph 15:01 Follow up: Response: No adverse reaction ph 14:55 Drug: Demerol 25 mg Route: IVP; Site: right upper arm; ph 15:38 Follow up: Response: No adverse reaction; Pain is decreased ph Intake: 13:30 IV: 1000ml; Total: 1000ml. ph Outcome: 14:16 Discharge ordered by . pm1 15:39 Patient left the ED. ph 15:39 Discharged to home ambulatory. ph 15:39 Condition: good 15:39 Discharge instructions given to patient, Instructed on discharge instructions, follow up and referral plans. medication usage, Demonstrated understanding of instructions, follow-up care, medications, Prescriptions given X 4. Signatures: Tiny Salazar RN RN aj1 Arabella Kelley Irene, RN RN iw Nieto, Roman, MD MD rn Hall, Patricia, RN RN ph Marinas, Patrick, NP [employer]IOR [employer]PLICATION SOFTWARE ENGINEER pm1 Beatrice Bray RN RN tw2 Corrections: (The following items were deleted from the chart) 14:59 14:58 Response: No adverse reaction; IV Status: Completed infusion; IV Intake: 1000ml phph
--- NOTE | 2018-12-08 15:31 | EDPHYS ---
Physician Documentation [facility] Name: Pietro Maxwell Age: 43 yrs Sex: Male : 1975 Arrival Date: 12/08/2018 Time: 11:16 Bed 20 Private MD: ED Physician Jameel Castro HPI: 12/08 12:05 This 43 yrs old Black Male presents to ER via Ambulatory with complaints of Vomiting, pm1 Bloody Stools. 12:05 The patient presents to the emergency department with vomiting, abdominal pain, of the pm1 left upper quadrant. Onset: The symptoms/episode began/occurred 3 day(s) ago. Possible causes: he is concerned that it might be diverticulitis. The symptoms are aggravated by nothing. The symptoms are alleviated by nothing. Associated signs and symptoms: Pertinent positives: nausea, vomiting, some bright red blood specks on solid stool, Pertinent negatives: constipation, diarrhea, dysuria, fever. Severity of symptoms: in the emergency department the symptoms are worse. The patient has experienced a previous episode, approximately 3 months ago. The patient has not recently seen a physician. Historical: - Allergies: 11:20 No Known Allergies; aj1 - Home Meds: 11:20 Dramamine oral oral for Nausea [Active]; aj1 - PMHx: 11:20 bowel obstruction; Pancreatitis; Diverticulitis; aj1 - Immunization history:: Flu vaccine is not up to date. - Social history:: Smoking status: Patient uses tobacco products, 1 cigarette per day. - Ebola Screening: : Patient denies travel to an Ebola-affected area in the 21 days before illness onset. ROS: 12:05 Constitutional: Negative for fever, chills, and weight loss, Eyes: Negative for injury, pm1 pain, redness, and discharge, ENT: Negative for injury, pain, and discharge, Neck: Negative for injury, pain, and swelling, Cardiovascular: Negative for chest pain, palpitations, and edema, Respiratory: Negative for shortness of breath, cough, wheezing, and pleuritic chest pain. 12:05 Back: Negative for injury and pain, : Negative for injury, bleeding, discharge, and swelling, MS/Extremity: Negative for injury and deformity, Skin: Negative for injury, rash, and discoloration, Neuro: Negative for headache, weakness, numbness, tingling, and seizure. 12:05 Abdomen/GI: Positive for abdominal pain, nausea and vomiting, rectal bleeding, Negative for diarrhea, constipation. Exam: 12:05 Constitutional: This is a well developed, well nourished patient who is awake, alert, pm1 and in no acute distress. Head/Face: Normocephalic, atraumatic. Eyes: Pupils equal round and reactive to light, extra-ocular motions intact. Lids and lashes normal. Conjunctiva and sclera are non-icteric and not injected. Cornea within normal limits. Periorbital areas with no swelling, redness, or edema. ENT: Nares patent. No nasal discharge, no septal abnormalities noted. Tympanic membranes are normal and external auditory canals are clear. Oropharynx with no redness, swelling, or masses, exudates, or evidence of obstruction, uvula midline. Mucous membranes moist. Neck: Trachea midline, no thyromegaly or masses palpated, and no cervical lymphadenopathy. Supple, full range of motion without nuchal rigidity, or vertebral point tenderness. No Meningismus. Chest/axilla: Normal chest wall appearance and motion. Nontender with no deformity. No lesions are appreciated. Cardiovascular: Regular rate and rhythm with a normal S1 and S2. No gallops, murmurs, or rubs. Normal PMI, no JVD. No pulse deficits. Respiratory: Lungs have equal breath sounds bilaterally, clear to auscultation and percussion. No rales, rhonchi or wheezes noted. No increased work of breathing, no retractions or nasal flaring. Back: No spinal tenderness. No costovertebral tenderness. Full range of motion. 12:05 Skin: Warm, dry with normal turgor. Normal color with no rashes, no lesions, and no evidence of cellulitis. MS/ Extremity: Pulses equal, no cyanosis. Neurovascular intact. Full, normal range of motion. 12:05 Abdomen/GI: Inspection: abdomen appears normal, Bowel sounds: normal, Palpation: soft, mild abdominal tenderness, in the left upper quadrant, mass, is not appreciated, rebound tenderness, is not appreciated. 12:05 Neuro: Orientation: is normal, Motor: is normal, moves all fours. 14:10 Abdomen/GI: Rectal exam: rectal tone normal, Stool: brown, guaiac negative, pm1 hemorrhoid(s), are not appreciated, mass, is not appreciated, swelling, is not appreciated. Vital Signs: 11:20 BP 108 / 92; Pulse 93; Resp 18; Temp 97.9; Pulse Ox 98% on R/A; Weight 127.01 kg (R); aj1 Height 6 ft. 0 in. (182.88 cm) (R); Pain 7/10; 12:45 BP 104 / 86; Pulse 94; Resp 18; Pulse Ox 97% on R/A; ph 14:00 BP 110 / 78; Pulse 92; Resp 16; Pulse Ox 99% on R/A; ph 15:03 BP 114 / 87; Pulse 90; Resp 18; Pulse Ox 99% on R/A; ph 11:20 Body Mass Index 37.97 (127.01 kg, 182.88 cm) aj1 MDM: 11:25 Patient medically screened. rn 14:13 Data reviewed: vital signs. Data interpreted: Pulse oximetry: on room air is 98 %. pm1 Interpretation: normal. Counseling: I had a detailed discussion with the patient and/or guardian regarding: the historical points, exam findings, and any diagnostic results supporting the discharge/admit diagnosis, lab results, radiology results, the need for outpatient follow up, to return to the emergency department if symptoms worsen or persist or if there are any questions or concerns that arise at home. 12/08 11:29 Order name: Basic Metabolic Panel pm12/08 11:29 Order name: CBC with Diff pm12/08 11:29 Order name: Creatinine for Radiology pm12/08 11:29 Order name: Hepatic Function pm12/08 11:29 Order name: Lipase pm12/08 12:53 Order name: CBC with Automated Diff; Complete Time: 13:05 EDCO 12/08 11:29 Order name: CT Abd/Pelvis - IV Contrast Only pm12/08 12:54 Order name: Creatinine (Radiology Only); Complete Time: 13:05 EDMS 12/08 12:55 Order name: Basic Metabolic Panel; Complete Time: 13:05 EDCO 12/08 12:55 Order name: Liver (Hepatic) Function; Complete Time: 13:05 EDMS 12/08 12:55 Order name: Lipase; Complete Time: 13:05 EDCO 12/08 13:04 Order name: Manual Differential; Complete Time: 13:05 [facility] 12/08 13:16 Order name: CT; Complete Time: 13:52 EDMS 12/08 11:29 Order name: IV Saline Lock; Complete Time: 12:31 pm1 12/08 11:29 Order name: Labs collected and sent; Complete Time: 12:32 pm1 Administered Medications: 12:31 Drug: NS 0.9% 1000 ml Route: IV; Rate: 1000 ml; Site: right upper arm; ph 13:30 Follow up: Response: No adverse reaction; IV Status: Completed infusion; IV Intake: ph 1000ml 12:31 Drug: Zofran 4 mg Route: IVP; Site: right upper arm; ph 13:00 Follow up: Response: No adverse reaction; Nausea is decreased ph 12:31 Drug: fentaNYL (PF) 50 mcg Route: IVP; Site: right upper arm; ph 13:04 Follow up: Response: No adverse reaction; Pain is unchanged, physician notified tw2 13:17 Drug: Phenergan 12.5 mg Route: IVP; Site: right antecubital; tw2 15:00 Follow up: Response: No adverse reaction; Pain is decreased ph 13:19 Drug: morphine 4 mg Route: IVP; Site: right antecubital; tw2 13:45 Follow up: Response: No adverse reaction; Pain is unchanged, physician notified ph 14:25 Drug: TORadol 30 mg Route: IVP; Site: right upper arm; ph 15:01 Follow up: Response: No adverse reaction; Pain is unchanged, physician notified ph 14:26 Drug: Cipro 500 mg Route: PO; ph 15:01 Follow up: Response: No adverse reaction ph 14:26 Drug: Flagyl 500 mg Route: PO; ph 15:01 Follow up: Response: No adverse reaction ph 14:55 Drug: Demerol 25 mg Route: IVP; Site: right upper arm; ph 15:38 Follow up: Response: No adverse reaction; Pain is decreased ph Disposition: 16:23 Co-signature as Attending Physician, Jameel Castro MD. rn Disposition: 12/08/18 14:16 Discharged to Home. Impression: Unspecified abdominal pain, Diarrhea, unspecified, Vomiting. - Condition is Stable. - Discharge Instructions: Abdominal Pain, Adult, Diarrhea, Adult, Nausea and Vomiting, Adult, Viral Gastroenteritis, Adult. - Prescriptions for Flagyl 500 mg Oral Tablet - take 1 tablet by ORAL route every 8 hours for 10 days; 30 tablet. Tylenol- Codeine #3 300-30 mg Oral Tablet - take 2 tablets by ORAL route every 6 hours As needed; 20 tablet. Cipro 500 mg Oral Tablet - take 1 tablet by ORAL route every 12 hours for 10 days; 20 tablet. promethazine 25 mg Oral Tablet - take 1 tablet by ORAL route every 6 hours As needed; 20 tablet. - Work release form, Medication Reconciliation Form, Thank You Letter, Antibiotic Education, Prescription Opioid Use form. - Follow up: Emergency Department; When: As needed; Reason: Worsening of condition. Follow up: Private Physician; When: 2 - 3 days; Reason: Recheck today's complaints, Continuance of care, Re-evaluation by your physician. - Problem is new. - Symptoms have improved. Signatures: Dispatcher [employer] EDMS Tiny Salazar RN RN aj1 Jameel Castro MD MD rn Hall, Patricia, RN RN ph Marinas, Patrick, NP [employer] pm1 Beatrice Bray RN RN tw2 Corrections: (The following items were deleted from the chart) 15:39 14:16 12/08/2018 14:16 Discharged to Home. Impression: Unspecified abdominal pain; ph Diarrhea, unspecified; Vomiting. Condition is Stable. Forms are Medication Reconciliation Form, Thank You Letter, Antibiotic Education, Prescription Opioid Use. Follow up: Emergency Department; When: As needed; Reason: Worsening of condition. Follow up: Private Physician; When: 2 - 3 days; Reason: Recheck today's complaints, Continuance of care, Re-evaluation by your physician. Problem is new. Symptoms have improved. pm1
== END 2018-12-08 15:39 | disposition home or self-care (01) ==
LOC: ER 11:12
DX: R11.10 Vomiting, unspecified (principal); R10.12 Left upper quadrant pain; R19.7 Diarrhea, unspecified; Z72.0 Tobacco use
CPT/HCPCS: 36415; 74177; 80048; 80076; 83690; 85025; 99284; J2175; J2405; J2550; J3010; J7030; Q9967

== ENCOUNTER 2019-07-24 08:49 | Emergency (ER) | payer BC, SELFPAY ==
--- OUTSIDE RECORDS SUMMARY | 2019-07-24 08:51 | XMS REPORT ---
:1975 Author Organization [facility] Address [address] [place] [address] Dr. Ortiz [address] [place] [id number] Care Team Providers Name Role Phone Unavailable Unavailable Unavailable Problems This patient has no known problems. Allergies, Adverse Reactions, Alerts This patient has no known allergies or adverse reactions. Medications This patient has no known medications.
--- OUTSIDE RECORDS SUMMARY | 2019-07-24 08:51 | XMS REPORT | Summary of Care ---
:1975 Author Organization [facility] Address [address] [place] [id number] Care Team Providers Name Role Phone Pcp, Patient Does Not Have A Primary Care Provider Reason for Referral Radiology Services ([facility]) Status Reason Specialty Diagnoses / Referred By Referred To Procedures Contact Contact New Request Diagnostic Diagnoses Nausea vomiting and diarrhea Ti Chavez Radiology Procedures XR ABDOMEN ACUTE SERIES III, PA [address] [place] [address] [place] [id number] Radiology Services ([facility]) Status Reason Specialty Diagnoses / Referred By Referred To Procedures Contact Contact New Request Diagnostic Diagnoses Nausea vomiting and diarrhea Ti Chavez Radiology Procedures XR ABDOMEN ACUTE SERIES III, [address] [place] [address] Reason for Visit Reason Comments Vomiting Abdominal Pain Auth/Cert Status Reason Specialty Diagnoses / Referred By Referred To Procedures Contact Contact [facility] [address] [place] [address] [place] [address] Encounter Details Date Type Department Care Team Description 01/12/2019 Emergency [facility] Ti Chavez Nausea vomiting and diarrhea (Primary Dx); Department III, PA Viral gastroenteritis [address] [place] [address] [place] [id number] [facility] [place] [place] [id number] Allergies Active Allergy Reactions Severity Noted Date Comments Morphine Nausea and/or Vomiting 01/12/2019 documented as of this encounter (statuses as of 01/12/2019) Medications Medication Sig Dispensed Refills Start Date End Date Status sucralfate 1 gram Take 1 tablet 30 tablet 0 12/05/2018 Active tabletIndications: by mouth before LLQ abdominal pain meals and at bedtime. dicyclomine (BENTYL) Take 1 capsule 30 capsule 0 12/05/2018 Active 10 mg by mouth every capsuleIndications: 8 (eight) hours LLQ abdominal pain as needed for Abdominal pain. ranitidine (ZANTAC) Take 1 tablet 30 tablet 1 01/12/2019 Active 150 mg by mouth 2 tabletIndications: (two) times Nausea vomiting and daily. Follow diarrhea, Viral up with your MD gastroenteritis for further evaluation and treatment. ondansetron (ZOFRAN Take 1 tablet 6 tablet 0 01/12/2019 Active ODT) 4 mg by mouth every disintegrating 8 (eight) hours tabletIndications: as needed for Nausea vomiting and Nausea and diarrhea, Viral Vomiting (N/V). gastroenteritis traMADol (ULTRAM) 50 Take 1 tablet 9 tablet 0 01/12/2019 Active mg by mouth every tabletIndications: 8 (eight) hours Nausea vomiting and as needed for diarrhea, Viral Pain (scale gastroenteritis 4-6). ondansetron 4 mg Take 1 tablet 20 tablet 0 12/05/2018 01/13/20 Discontinued disintegrating by mouth every 19 tabletIndications: 8 (eight) hours LLQ abdominal pain as needed for Nausea and Vomiting (N/V). documented as of this encounter (statuses as of 01/12/2019) Active Problems No known active problemsdocumented as of this encounter (statuses as of 2018) Social History Tobacco Use Types Packs/Day Years Used Date Never Assessed Sex Assigned at Date Recorded Not on file Job Start Date Occupation Industry Not on file Not on file Not on file Travel History Travel Start Travel End No recent travel history available. documented as of this encounter Last Filed Vital Signs Vital Sign Reading Time Taken Comments Blood Pressure 129/82 01/12/2019 4:07 PM CDT Pulse 91 01/12/2019 4:07 PM CDT Temperature 37.1 C (98.7 F) 01/12/2019 2:40 PM CDT Respiratory Rate 16 01/12/2019 4:07 PM CDT Oxygen Saturation 8% 01/12/2019 4:07 PM CDT Inhaled Oxygen Concentration - - Weight 117.9 kg (260 lb) 01/12/2019 2:40 PM CDT Height 182.9 cm (6') 01/12/2019 2:40 PM CDT Body Mass Index 35.26 01/12/2019 2:40 PM CDT documented in this encounter Discharge Instructions Ti Bassett III, PA - 01/12/2019 @@@@@@@@@@@@@@@@@@@@@@@@@@@@@@@@@@@@@@@@@@@@@@@@@@@@@ [facility] RETURN TO WORK / SCHOOL EXCUSE Pietro Christopher WAS SEEN IN THE ER AND DISCHARGED 01/12/2019 TODAY, 3:53 PM & May return to Work / School / Incarceration on 01/13/19 with No limitations unless indicated below. ___The following limitations apply until pt is seen by Physician and cleared to return to normal activity. ___ Light duty ___ No Sports ___ No work ___ Do not return until fever free for 24 hours. ___ No school [employer] [facility] [address] [place] [address] [place] [address] If you are unprepared to return to work tomorrow due to pain please give this note to your employer and make a follow up appointment with your MD for further evaluation and limitations. ### The patient may have been given Narcotic pain medications during their stay in the ED that may show up on a Drug Screen. The hospital discharge paper work will identify these medications. @@@@@@@@@@@@@@@@@@@@@@@@@@@@@@@@@@@@@@@@@@@@@@@@@@@@@ Thank you for trusting us with your care. The emergency room is the first stop in the medical management of your complaint . Our primary pupose is to identify life threatening emergancies and to rapidly address those issues. We are releasing you today after evaluation for emergency or life threatening problems related to your complaint. At this time we are comfortable that your condition is stable enough to go home, take oral medications and follow up for further care. If you can't afford a doctor OR MEDICATIONS consider Clinic [facility], [address], [place]; [phone] Medications [employer] WILL SHOW YOU WHERE YOU CAN GET YOUR MEDICATIONS CHEAPEST. 1. Call your doctor and let them know you were seen for ICD-10-CM ICD-9-CM 1. Nausea vomiting and diarrhea R11.2 787.91 R19.7 787.01 2. Viral gastroenteritis A08.4 008.8 2. Schedule a follow up within 3 days of your ER visit. 3. Take your prescriptions to the pharmacy and get them filled today. 4. Take the medications as prescribed and until completed. 5. You have been referred for further care 6. You may need additional tests Your doctors will help you figure out what you need and how to get them done. 7. Please read all paperwork provided to you. Additional instructions See Attached NAUSEA VOMITING AND DIARRHEA CLEAR LIQUID DIET This includes liquids that you can see through and have no chunks in it. This includes diluted juices, diluted gatoraid, soup broth (no solid chunks), Jello and clear icee pops ( the kind you stick in the freezer and squeeze up ). This diet should be followed for 24 hours. The next 24 hours start the Brat diet listed below. If your symptoms return then go back to a clear liquid diet for another 24 hours. Repeat this process for up to 3 days. If you still have symptoms see your Doctor again for re-evaluation. What is the BRAT diet? If you have recently had an upset stomach or diarrhea, your doctor may suggest that you limit your diet to bland foods that won?t irritate your stomach. The BRAT diet is a bland-food diet that is oftenrecommended for adults and children. BRAT stands for Bananas, Rice, Applesauce and [place]. The BRAT diet can help you recover from an upset stomach or diarrhea for the following reasons : It includes ?binding? foods. These are low-fiber foods that can help make your stools firmer. It includes bananas, which are high in potassium and help replace nutrients your body has lost because of vomiting or diarrhea. When should I follow the BRAT diet? After you have diarrhea or vomiting, follow the BRAT diet to help your body ease back into normal eating. This diet may also help ease the nausea and vomiting some women experience during . You can add other bland foods to the BRAT diet. For example, you can try saltine crackers, boiled potatoes or clear soups. Don?t start eating dairy products and sugary or fatty foods right away. These foods may trigger nausea or lead to more diarrhea. When should I avoid the BRAT diet? Solid foods, like those in the BRAT diet, are not recommended for adults or children who are actively vomiting. Instead, stick to clear liquids at first and wait until you can eat solid foods without vomiting. If you have been vomiting or have diarrhea, drinking an electrolyte beverage (some brand names: Pedialyte, Rehydralyte) can help protect against dehydration. Use these products according to your doctor?s instructions. How long should I follow the BRAT diet? Both adults and children should follow the BRAT diet for only a short period of time because it doesnot provide all the elements of a healthy diet. Following the BRAT diet for too long can cause your body to become malnourished. This means you are not getting enough of many important nutrients. If your body is malnourished, it will be hard for you to get better. You should be able to start eating a more regular diet, including fruits and vegetables, within about 24 to 48 hours after vomiting or having diarrhea. Ask your family doctor if you have any questions about whether you or your child should follow the BRAT diet. documented in this encounter Plan of Treatment Health Maintenance Due Date Last Done Comments DTaP,Tdap,and Td Vaccines (02/14/1992 Tdap) INFLUENZA VACCINE 02/18/2019 PNEUMOCOCCAL 0-64 YEARS COMBINED Aged Out No longer eligible based on SERIES patient's age to complete this topic documented as of this encounter Procedures Procedure Name Priority Date/Time Associated Comments Diagnosis XR ABDOMEN ACUTE [facility] 01/12/2019 3:36 Nausea vomiting and Results for this SERIES PM CDT diarrhea procedure are in the results section. CBC WITH DIFFERENTIAL STAT 01/12/2019 3:10 Nausea vomiting and Results for this PM CDT diarrhea procedure are in the results section. CBC WITH DIFF Routine 01/12/2019 3:10 Nausea vomiting and Results for this PM CDT diarrhea procedure are in the results section. COMP. METABOLIC PANEL STAT 01/12/2019 3:10 Nausea vomiting and Results for this (78690) PM CDT diarrhea procedure are in the results section. NOTICE OF PRIVACY Routine 01/12/2019 2:30 PRACTICES PM CDT CONSENT/REFUSAL FOR Routine 01/12/2019 2:29 DIAGNOSIS AND PM CDT TREATMENT documented in this encounter Results XR ABDOMEN ACUTE SERIES (01/12/2019 3:36 PM CDT) Specimen Narrative Performed At HISTORY:Generalized abdominal pain with nausea and vomiting. PACS/VR/DOSE FINDINGS: Abdomen, 2 views-3 films: AP supine and upright views of the abdomen showed nonobstructive intestinal gas pattern, suggestive of ileus. Upright view shows no free air. Cholecystectomy clips are seen in the right upper abdomen. No calcified kidney stones. Chest, one view: Lungs are clear. Cardiomediastinal silhouette appears normal. CONCLUSIONS: 1. Intestinal gas pattern is nonobstructive, suggestive of mild ileus. Please correlate for possibility of gastroenteritis. 2. S/P cholecystectomy. 3. No signs of acute cardiopulmonary disease. Procedure Note [facility], Radiant Results Inft User - 01/12/2019 3:40 PM CDT HISTORY: Generalized abdominal pain with nausea and vomiting. FINDINGS: Abdomen, 2 views-3 films: AP supine and upright views of the abdomen showed nonobstructive intestinal gas pattern, suggestive of ileus. Upright view shows no free air. Cholecystectomy clips are seen in the right upper abdomen. No calcified kidney stones. Chest, one view: Lungs are clear. Cardiomediastinal silhouette appears normal. CONCLUSIONS: 1. Intestinal gas pattern is nonobstructive, suggestive of mild ileus. Please correlate for possibility of gastroenteritis. 2. S/P cholecystectomy. 3. No signs of acute cardiopulmonary disease. Performing Organization Address City/State/Zipcode Phone Number PACS/VR/DOSE CBC WITH DIFFERENTIAL (01/12/2019 3:10 PM CDT) WBC 6.58 4.20 - 10.70 [facility] 10*3/L [facility] RBC 5.03 4.26 - 5.52 [facility] 10*6/L [facility] HGB 14.2 12.2 - 16.4 [facility] g/dL [facility] HCT 43.6 38.4 - 49.3 % [facility] MCV 86.7 81.7 - 95.6 fL [facility] MCH 28.2 26.1 - 32.7 pg [facility] MCHC 32.6 31.2 - 35.0 [facility] g/dL [facility] RDW-SD 39.9 38.5 - 51.6 fL [facility] RDW-CV 12.7 12.1 - 15.4 % [facility] PLT 245 150 - 328 [facility] 10*3/L [facility] MPV 10.1 9.8 - 13.0 fL [facility] NRBC/100 WBC 0.0 0.0 - 10.0 /100 [facility] WBCs [facility] NRBC x10^3 <0.01 10*3/L [facility] GRAN MAT (NEUT) % 59.1 % [facility] IMM GRAN % 0.20 % [facility] LYMPH % 34.3 % [facility] MONO % 5.6 % [facility] EOS % 0.5 % [facility] BASO % 0.3 % [facility] GRAN MAT x10^3(ANC) 3.89 1.99 - 6.95 [facility] 10*3/uL [facility] IMM GRAN x10^3 <0.03 0.00 - 0.06 [facility] 10*3/uL [facility] LYMPH x10^3 2.26 1.09 - 3.23 [facility] 10*3/uL [facility] MONO x10^3 0.37 0.36 - 1.02 [facility] 10*3/uL [facility] EOS x10^3 0.03 (L) 0.06 - 0.53 [facility] 10*3/uL [facility] BASO x10^3 <0.03 0.01 - 0.09 [facility] 10*3/uL [facility] Specimen Blood - VENOUS Performing Organization Address City/State/Zipcode Phone Number [facility] CLIA: [id number], [address] [place] [address] COMP. METABOLIC PANEL (29182) (01/12/2019 3:10 PM CDT) NA 143 135 - 145 [facility] mmol/L [facility] K 3.7 3.5 - 5.0 [facility] mmol/L [facility] CL 108 98 - 108 mmol/L [facility] CO2 TOTAL 21 (L) 23 - 31 mmol/L [facility] AGAP 14 2 - 16 [facility] BUN 14 7 - 23 mg/dL [facility] GLUCOSE 139 (H) 70 - 110 mg/dL [facility] CREATININE 0.83 0.60 - 1.25 [facility] mg/dL [facility] TOTAL BILI 0.7 0.1 - 1.1 mg/dL [facility] CALCIUM 9.2 8.6 - 10.6 [facility] mg/dL [facility] T PROTEIN 8.3 (H) 6.3 - 8.2 g/dL [facility] ALBUMIN 4.5 3.5 - 5.0 g/dL [facility] ALK PHOS 91 34 - 122 U/L [facility] ALT(SGPT) 25 9 - 51 U/L [facility] AST(SGOT) 25 13 - 40 U/L [facility] eGFR Calculation 100.2 mL/min/1.73m2 [facility] (Non[facility] Citizen [place]) eGFR Calculation 121.4 mL/min/1.73m2 [facility] () [facility] Specimen Blood - VENOUS Narrative Performed At Association of Glomerular Filtration Rate (GFR) [facility] and Staging of Kidney Disease* + + +- + | GFR (mL/min/1.73 m2)| With Kidney Damage|Without Kidney Damage + + +- + |>90| Stage one| Normal + + +- + |60-89|S tage two| Decreased GFR + + +- + |30-59|S tage three| Stage three + + +- + |15-29|S tage four | Stage four + + +- + |<15 (or dialysis)|Stage five | Stage five + + +- + *Each stage assumes the associated GFR level has been in effect for at least three months.Stages 1 to 5, with or without kidney disease, indicate chronic kidney disease. Notes: Determination of stages one and two (with eGFR >59mL/min/1.73 m2) requires estimation of kidney damage for at least three months as defined by structural or functional abnormalities of the kidney, manifested by either: Pathological abnormalities or Markers of kidney damage (including abnormalities in the composition of the blood or urine or abnormalities in imaging tests). Performing Organization Address City/State/Zipcode Phone Number [facility] CLIA: [id number], [address] [place] [address] documented in this encounter Visit Diagnoses Diagnosis Nausea vomiting and diarrhea - Primary Nausea with vomiting Viral gastroenteritis Intestinal infection due to other organism, not elsewhere classified documented in this encounter Administered Medications Medication Order MAR Action Action Date Dose Rate Site dicyclomine (BENTYL) capsule 20 mg Given 01/12/2019 4:09 PM CDT 20 mg 20 mg, Oral, QID, First dose on Tue01/12/19 at 1600, Until Discontinued, Routine Medication Order MAR Action Action Date Dose Rate Site acetaminophen (TYLENOL) tablet Given 01/12/2019 4:09 PM CDT 1,000 mg 1,000 mg 1,000 mg, Oral, ONCE, 1 dose, Tue01/12/19 at 1700, [facility] maalox:diphenhydrAMINE:lidocaine2 %viscous Given 01/12/2019 4:08 PM CDT 15 mL 1:1:1: suspension (COMPOUNDED) 15 mL, Oral, ONCE, 1 dose, Tue01/12/19 at 1700, Routine NaCl 0.9% (NS) bolus infusion New Bag 01/12/2019 3:40 PM CDT 1,000 mL 999 mL/hr 1,000 mL at 999 mL/hr, 1,000 mL, IV Infusion, ONCE, 1 dose, Tue01/12/19 at 1600, STAT ondansetron (ZOFRAN (PF)) injection 4 mg Given 01/12/2019 3:41 PM CDT 4 mg 4 mg, Slow IV Push, ONCE, 1 dose, Tue01/12/19 at 1600, [facility] documented in this encounter documented as of this encounter"
[2019-07-24] MEDS ORDERED: ACETAMINOPHEN 500 MG TAB ONE (09:23)
[2019-07-24] MEDS ORDERED: ONDANSETRON 4 MG (ODT) TAB ONE (09:26)
[2019-07-24] MEDS ORDERED: NA CHLORIDE 0.9% 1,000 ML ONE (10:17)
[2019-07-24] MEDS ORDERED: MEPERIDINE HCL 25 MG/0.5 ML ONE ×3 (10:17→12:55)
[2019-07-24 10:33] LABS: Absolute Lymphocytes (CBC) 2.1 K/uL (0.7-4.9); Basophils % 0.6 % (0-1.3); Lymphocytes % 27.5 % (15.3-44.8); MPV 8.8 fL (7.6-11.3); RBC Red Blood Cell Count 5.02 M/uL (4.33-5.43)
[2019-07-24 10:53] LABS: ALT/SGPT 27 U/L (12-78); AST/SGOT 16 U/L (15-37); Albumin 3.9 g/dL (3.4-5.0); Alkaline Phosphatase 92 U/L (45-117); BUN Blood Urea Nitrogen 14 mg/dL (7-18); Bicarbonate 24 mmol/L (21-32); Bilirubin Direct < 0.1 mg/dL (0-0.2); Bilirubin Total 0.6 mg/dL (0.2-1.0); Glucose Level 116 mg/dL (74-106); Lipase 35 U/L (73-393); Protein, Total 8.2 g/dL (6.4-8.2); Sodium Level 138 mmol/L (136-145)
--- NOTE | 2019-07-24 12:29 | RAD REPORT ---
EXAM DESCRIPTION: CTAbdomen Pelvis W Contrast - 07/24/2019 12:11 pm CLINICAL HISTORY: Abdominal pain. ABD PAIN COMPARISON: Abdomen Pelvis W Contrast dated 12/08/2018; Abdomen Pelvis W Contrast dated 08/15/2018 ; Abdomen Pelvis W Contrast dated 01/24/2017 TECHNIQUE: Biphasic CT imaging of the abdomen and pelvis was performed with 100 ml non-ionic IV cont rast. All CT scans are performed using dose optimization technique as appropriate and may include automated exposure control or mA/KV adjustment according to patient size. FINDINGS: The lung bases are clear.Cholecystectomy clips. The liver, spleen, pancreas, adrenal glands and right kidney are within normal limits. 3.5 cm calicea l diverticulum medial upper left kidney with small calcification. No bowel obstruction, free air, free fluid or abscess. Sigmoid diverticulosis is present without dive rticulitis. Mild to moderate stool is present in the colon. The appendix is not identified as a discr ete structure, however, no secondary findings of appendicitis are identified. No evidence of signif icant lymphadenopathy. No suspicious bony findings. IMPRESSION: No acute intra-abdominal or pelvic finding. 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
--- NOTE | 2019-07-24 12:43 | EDPHYS ---
Physician Documentation [facility] Name: Pietro Maxwell Age: 44 yrs Sex: Male : 1975 Arrival Date: 07/24/2019 Time: 08:55 Bed 2 Private MD: ED Physician Jameel Castro HPI: 07/24 09:58 This 44 yrs old Black Male presents to ER via Ambulatory with complaints of Abdominal rn Pain. 09:58 The patient presents with abdominal pain in the lower abdomen. Onset: The rn symptoms/episode began/occurred yesterday. The symptoms do not radiate. Associated signs and symptoms: Pertinent positives: anorexia, diarrhea, fever, nausea, Pertinent negatives: blood in stools, vomiting blood. The symptoms are described as crampy, intermittent, sharp. Modifying factors: The symptoms are alleviated by nothing, the symptoms are aggravated by touching the area. Severity of pain: At its worst the pain was moderate in the emergency department the pain is unchanged. The patient has experienced a previous episode. Reports fever, nausea/diarrhea, feels like last time when had diverticulitis. No blood in stool. . Historical: - Allergies: 09:18 No Known Allergies; ss - Immunization history:: Adult Immunizations up to date. - Coronavirus screen:: The patient has NOT traveled to [place], [place], or [place] in the past 14 days. - Social history:: Smoking status: Patient denies any tobacco usage or history of. - Family history:: not pertinent. - Ebola Screening: : Patient denies exposure to infectious person Patient denies travel to an Ebola-affected area in the 21 days before illness onset. - Hospitalizations: : No recent hospitalization is reported. ROS: 09:58 Constitutional: + fever Eyes: Negative for injury, pain, redness, and discharge, Neck: rn Negative for injury, pain, and swelling, Cardiovascular: Negative for chest pain, palpitations, and edema, Respiratory: Negative for shortness of breath, cough, wheezing, and pleuritic chest pain, Abdomen/GI: + left abd pain with nausea/diarrhea Back: Negative for injury and pain, : Negative for injury, bleeding, discharge, and swelling, MS/Extremity: Negative for injury and deformity, Neuro: Negative for weakness, numbness, tingling, and seizure. Exam: 09:58 Constitutional: This is a well developed, well nourished patient who is awake, alert, rn and in no acute distress. 09:58 Head/Face: Normocephalic, atraumatic. Eyes: Pupils equal round and reactive to light, rn extra-ocular motions intact. Lids and lashes normal. Conjunctiva and sclera are non-icteric and not injected. Cornea within normal limits. Periorbital areas with no swelling, redness, or edema. ENT: dry MM Neck: Trachea midline, no thyromegaly or masses palpated, and no cervical lymphadenopathy. Supple, full range of motion without nuchal rigidity, or vertebral point tenderness. No Meningismus. Cardiovascular: Tachycardic, regular Respiratory: No increased work of breathing, no retractions or nasal flaring. Abdomen/GI: soft, + left upper and lower abd tenderness, no masses MS/ Extremity: Pulses equal, no cyanosis. Neurovascular intact. Full, normal range of motion. Equal circumference. Neuro: Awake and alert, GCS 15, oriented to person, place, time, and situation. Cranial nerves II-XII grossly intact. Motor strength 5/5 in all extremities. Sensory grossly intact. Cerebellar exam normal. Normal gait. Vital Signs: 09:18 BP 137 / 87; Pulse 103; Resp 21; Temp 99.9(TE); Pulse Ox 98% ; Weight 129.27 kg; Height ss 6 ft. 0 in. (182.88 cm); Pain 8/10; 10:17 BP 129 / 78; Pulse 93; Resp 18; Temp 99.0(TE); Pulse Ox 97% on R/A; em1 11:26 BP 123 / 67; Pulse 91; Resp 16; Pulse Ox 97% ; bp 12:43 BP 126 / 71; Pulse 80; Resp 16; Temp 98.9; Pulse Ox 100% ; bp 09:18 Body Mass Index 38.65 (129.27 kg, 182.88 cm) ss MDM: 09:40 Patient medically screened. rn 12:41 Differential diagnosis: diverticulitis, non-specific abd pain, pancreatitis, rn Ureterolithiasis, non-specific abd pain, colitis, enteritis. Data reviewed: vital signs, nurses notes, lab test result(s), radiologic studies, CT scan, and as a result, I will discharge patient. Counseling: I had a detailed discussion with the patient and/or guardian regarding: the historical points, exam findings, and any diagnostic results supporting the discharge/admit diagnosis, lab results, radiology results, the need for outpatient follow up, to return to the emergency department if symptoms worsen or persist or if there are any questions or concerns that arise at home. Response to treatment: the patient's symptoms have mildly improved after treatment, and as a result, I will discharge patient. Special discussion: Based on the patient's Hx, exam, and Dx evaluation, there is no indication for emergent surgery or inpatient Tx. It is understood by the patient/guardian that if the Sx's persist or worsen they need to return immediately for re-evaluation. I discussed with the patient/guardian in detail that at this point there is no indication for admission to the hospital. It is understood, however, that if the symptoms persist or worsen the patient needs to return immediately for re-evaluation. ED course: No acute findings on ct abdomen, given recent onset of symptoms and hx of diverticulitis, will dc home with abx,zofran, pain meds. . 12:50 ED course: Pt laying on side, watching something on his phone. rn 07/24 09:19 Order name: Flu; Complete Time: 10:47 ss 07/24 09:19 Order name: Strep; Complete Time: 10:47 07/24 09:47 Order name: Basic Metabolic Panel; Complete Time: 11:54 rn 07/24 09:47 Order name: CBC with Diff; Complete Time: 10:47 rn 07/24 09:47 Order name: Creatinine for Radiology; Complete Time: 10:47 rn 07/24 09:47 Order name: Hepatic Function; Complete Time: 11:54 rn 07/24 09:47 Order name: Lipase; Complete Time: 11:54 rn 07/24 09:47 Order name: CT Abd/Pelvis - IV Contrast Only; Complete Time: 12:32 rn 07/24 10:22 Order name: Throat Culture EDAL 07/24 09:47 Order name: IV Saline Lock; Complete Time: 10:20 rn 07/24 09:47 Order name: Labs collected and sent; Complete Time: 10:20 rn Administered Medications: 09:21 Drug: Tylenol 1000 mg Route: PO; ss 10:20 Follow up: Response: Temperature is decreased bp 09:23 Drug: Zofran 4 mg Route: PO; ss 10:20 Follow up: Response: Nausea is decreased bp 10:05 Drug: NS 0.9% 1000 ml Route: IV; Rate: 1000 ml; Site: right wrist; bp 12:47 Follow up: IV Status: Completed infusion; IV Intake: 1000ml bp 10:05 Drug: Demerol 25 mg Route: IVP; Site: right wrist; bp 11:59 Follow up: Response: Pain is decreased bp 12:00 Drug: Demerol 25 mg Route: IVP; Site: right wrist; bp 12:44 Follow up: Response: No adverse reaction bp 12:58 Drug: Demerol 25 mg Route: IVP; Site: right wrist; bp 12:58 Follow up: Response: Medication administered at discharge. bp Disposition: 07/24/19 12:42 Discharged to Home. Impression: Nausea with vomiting, unspecified, Diarrhea, unspecified, Unspecified abdominal pain. - Condition is Stable. - Discharge Instructions: Abdominal Pain, Adult, Diarrhea, Adult, Nausea and Vomiting, Adult. - Prescriptions for Zofran ODT 4 mg Oral tablet,disintegrating - place 1 tablet by TRANSLINGUAL route every 8 hours As needed; 20 tablet. Cipro 500 mg Oral Tablet - take 1 tablet by ORAL route every 12 hours for 10 days; 20 tablet. Flagyl 500 mg Oral Tablet - take 1 tablet by ORAL route every 8 hours for 10 days; 30 tablet. Tylenol- Codeine #3 300-30 mg Oral Tablet - take 1 tablet by ORAL route every 6 hours As needed; 15 tablet. - Medication Reconciliation Form, Thank You Letter, Antibiotic Education, Prescription Opioid Use form. - Follow up: Private Physician; When: As needed; Reason: Recheck today's complaints, Re-evaluation by your physician. - Problem is new. - Symptoms have improved. Signatures: Dispatcher [employer] EDMS Jameel Castro MD MD rn Smirch, Shelby, RN RN ss Peltier, Brian, RN RN bp Corrections: (The following items were deleted from the chart) 10:02 09:58 Constitutional: + fever Eyes: Negative for injury, pain, redness, and discharge, rn Neck: Negative for injury, pain, and swelling, Cardiovascular: Negative for chest pain, palpitations, and edema, Respiratory: Negative for shortness of breath, cough, wheezing, and pleuritic chest pain, Abdomen/GI: + left abd pain with nausea/diarrhea Back: Negative for injury and pain, : Negative for injury, bleeding, discharge, and swelling, MS/Extremity: Negative for injury and deformity, Neuro: Negative for headache, weakness, numbness, tingling, and seizure, rn 13:09 12:42 07/24/2019 12:42 Discharged to Home. Impression: Nausea with vomiting, bp unspecified; Diarrhea, unspecified; Unspecified abdominal pain. Condition is Stable. Forms are Medication Reconciliation Form, Thank You Letter, Antibiotic Education, Prescription Opioid Use. Follow up: Private Physician; When: As needed; Reason: Recheck today's complaints, Re-evaluation by your physician. Problem is new. Symptoms have improved. rn
--- NOTE | 2019-07-24 12:43 | ER ---
Nurse's Notes [facility] Name: Pietro Maxwell Age: 44 yrs Sex: Male : 1975 Arrival Date: 07/24/2019 Time: 08:55 Bed 2 Private MD: Diagnosis: Nausea with vomiting, unspecified;Diarrhea, unspecified;Unspecified abdominal pain Presentation: 07/24 09:16 Presenting complaint: Patient states: body aches, vomiting and headache x 2 days. ss Transition of care: patient was not received from another setting of care. Onset of symptoms was July 21, 2019. Risk Assessment: Do you want to hurt yourself or someone else? Patient reports no desire to harm self or others. Initial Sepsis Screen: Does the patient have a suspected source of infection? No. Patient's initial sepsis screen is negative. Initial Sepsis Screen: Does the patient meet any 2 criteria? HR > 90 bpm. Care prior to arrival: None. 09:16 Method Of Arrival: Ambulatory ss 09:16 Acuity: ELSA 3 ss Triage Assessment: 09:20 General: Appears in no apparent distress. comfortable, Behavior is cooperative, bp appropriate for age, anxious. Pain: Complains of pain in head. EENT: No deficits noted. Neuro: No deficits noted. Cardiovascular: No deficits noted. Respiratory: No deficits noted. GI: Abdomen is non-distended. : No signs and/or symptoms were reported regarding the genitourinary system. Derm: No deficits noted. Musculoskeletal: No deficits noted. Historical: - Allergies: 09:18 No Known Allergies; ss - Immunization history:: Adult Immunizations up to date. - Coronavirus screen:: The patient has NOT traveled to [place], [place], or [place] in the past 14 days. - Social history:: Smoking status: Patient denies any tobacco usage or history of. - Family history:: not pertinent. - Ebola Screening: : Patient denies exposure to infectious person Patient denies travel to an Ebola-affected area in the 21 days before illness onset. - Hospitalizations: : No recent hospitalization is reported. Screenin:20 Abuse screen: Denies threats or abuse. Denies injuries from another. Nutritional bp screening: No deficits noted. Tuberculosis screening: No symptoms or risk factors identified. Fall Risk None identified. Assessment: 09:20 General: SEE TRIAGE NOTE. bp 09:20 GI: Bowel sounds present X 4 quads. Abd is soft X 4 quads. bp 10:22 Reassessment: PIV IN PLACE AND IVF INFUSING. CT PENDING. PT STATES NO CHANGE IN S/S. bp 11:26 Reassessment: PT RETURNED FROM CT FOR PIV REPLACEMENT. MD AWARE. bp 12:09 Reassessment: CT CONTACTED ABOUT NEW PIV, PT TO CT FOR ABDOMINAL CT. bp 12:47 Reassessment: PT D/C HOME AMBULATORY, DX WITH NAUSEA AND VOMITING. bp Vital Signs: 09:18 BP 137 / 87; Pulse 103; Resp 21; Temp 99.9(TE); Pulse Ox 98% ; Weight 129.27 kg; Height ss 6 ft. 0 in. (182.88 cm); Pain 8/10; 10:17 BP 129 / 78; Pulse 93; Resp 18; Temp 99.0(TE); Pulse Ox 97% on R/A; em1 11:26 BP 123 / 67; Pulse 91; Resp 16; Pulse Ox 97% ; bp 12:43 BP 126 / 71; Pulse 80; Resp 16; Temp 98.9; Pulse Ox 100% ; bp 09:18 Body Mass Index 38.65 (129.27 kg, 182.88 cm) ss ED Course: 08:55 Patient arrived in ED. ag5 09:17 Triage completed. ss 09:18 Arm band placed on right wrist. ss 09:20 Patient has correct armband on for positive identification. Bed in low position. Call bp light in reach. Side rails up X2. Adult w/ patient. 09:40 Jameel Castro MD is Attending Physician. rn 09:45 Lorenzo Saba RN is Primary Nurse. bp 10:05 Inserted saline lock: 22 gauge in right wrist, using aseptic technique. Blood collected.bp 12:00 Inserted saline lock: 18 gauge in right upper arm, using aseptic technique. aa5 12:11 CT Abd/Pelvis - IV Contrast Only In Process Unspecified. EDMS 12:44 No provider procedures requiring assistance completed. IV discontinued, intact, bp bleeding controlled, No redness/swelling at site. Pressure dressing applied. Administered Medications: 09:21 Drug: Tylenol 1000 mg Route: PO; ss 10:20 Follow up: Response: Temperature is decreased bp 09:23 Drug: Zofran 4 mg Route: PO; ss 10:20 Follow up: Response: Nausea is decreased bp 10:05 Drug: NS 0.9% 1000 ml Route: IV; Rate: 1000 ml; Site: right wrist; bp 12:47 Follow up: IV Status: Completed infusion; IV Intake: 1000ml bp 10:05 Drug: Demerol 25 mg Route: IVP; Site: right wrist; bp 11:59 Follow up: Response: Pain is decreased bp 12:00 Drug: Demerol 25 mg Route: IVP; Site: right wrist; bp 12:44 Follow up: Response: No adverse reaction bp 12:58 Drug: Demerol 25 mg Route: IVP; Site: right wrist; bp 12:58 Follow up: Response: Medication administered at discharge. bp Intake: 12:47 IV: 1000ml; Total: 1000ml. bp Outcome: 12:42 Discharge ordered by MD. rn 12:45 Discharged to home ambulatory. bp 12:45 Condition: stable 12:45 Discharge instructions given to patient, Instructed on discharge instructions, follow up and referral plans. medication usage, Demonstrated understanding of instructions, follow-up care, medications. 12:46 Prescriptions given X 4. bp 13:09 Patient left the ED. bp Signatures: Dispatcher [employer] EDMS Jameel Castro MD MD rn Martinez, Eric em1 Genevieve Wallace RN RN aa5 Shelley Velasquez RN RN ss Lorenzo Saba RN RN bp Mccarty, Rolando ag5 Corrections: (The following items were deleted from the chart) 10:14 09:16 Acuity: ELSA 4 [facility]
[2019-07-24 13:23] VITALS: BP 126/71; TEMP 98.9; O2SAT 100
== END 2019-07-24 13:09 | disposition home or self-care (01) ==
LOC: ER 08:49
DX: R11.2 Nausea with vomiting, unspecified (principal); R19.7 Diarrhea, unspecified
CPT/HCPCS: 96361; 87070; 85025; 80048; 36415; 80076; 87081; 83690; 87804 ×2; 74177; 96374; 99284; Q9967; J2175 ×3; J7030

== ENCOUNTER 2020-03-10 21:54 | Emergency (ER) | payer BC ==
--- OUTSIDE RECORDS SUMMARY | 2020-03-10 21:57 | XMS REPORT | Summary of Care ---
:1975 Author Organization [facility] Address [address] [place] [address] Care Team Providers Name Role Phone Shalom Harris MD Primary Care Provider Reason for Referral (Routine) Status Reason Specialty Diagnoses / Referred By Referred To Procedures Contact Contact New Request Psychiatry Diagnoses Adjustment reaction with anxiety and depression Insomnia, unspecified type Shalom Harris, Web-Psychiatry Procedures CONSULT/REFERRAL PSYCHOLOGY MD Staff [address] [place] [address] Dr Vicente, [facility] [address] [place] [address] Phone: Reason for Visit Reason Comments Follow-up Hand Pain Chest Pain No-Cardiac Stress Anxiety (Routine) Status Reason Specialty Diagnoses / Referred By Referred To Procedures Contact Contact New Request Diagnoses Chest pain, unspecified type Gabino Noe MD Pcp, Patient Does Procedures Discharge Follow-up: PCP PATIENT DOES NOT HAVE A PCP; 1 Week 301 [facility] Not Have A [address] [address] [place], [place] Phone: [phone] Phone: Encounter Details Date Type Department Care Team Description 12/21/2019 Office Visit [facility] Shalom Harris, Adjustment reaction with anxiety and depression (Primary Dx); Pediatric and Adult MD Non-cardiac chest pain; Primary Care- [address] [place] [address] Insomnia, unspecified type; [facility] 205 Chronic nonintractable headache, unspeci fied headache type [address] [place], [place] [address], [address] [place] [address] Allergies Active Allergy Reactions Severity Noted Date Comments Morphine Nausea and/or Vomiting 01/12/2019 documented as of this encounter (statuses as of 12/24/2019) Medications Medication Sig Dispensed Refills Start Date End Date Status traZODone 50 mg Take 1 30 tablet 0 12/21/2019 Act marilu tabletIndications: tablet by Insomnia, mouth at unspecified type bedtime. SERTraline 25 mg Take 1 30 tablet 0 12/21/2019 Ac tive tabletIndications: tablet by Adjustment reaction mouth daily. with anxiety and depression acetaminophen 650 Take 1 30 tablet 1 12/21/2019 A ctive mg CR tablet by tabletIndications: mouth every Chronic 8 (eight) nonintractable hours as headache, needed for unspecified Pain or headache type Fever. Diphenhydramine-Kelton Take 1 0 Discontinued taminophen (TYLENOL tablet by 0 (Alternate PM EXTRA STRENGTH) mouth at t herapy) 25-500 mg Tab bedtime as needed for Other (sleep aide). documented as of this encounter (statuses as of 12/24/2019) Active Problems Problem Noted Date Insomnia, unspecified type 12/21/2019 Adjustment reaction with anxiety and depression 2019 Non-cardiac chest pain 11/04/2019 Need for influenza vaccination 05/14/2019 Need for Tdap vaccination 05/14/2019 Chronic nonintractable headache, unspecified headache type 05/11/2019 Obesity (BMI 30-39.9) 05/11/2019 Frequency of micturition 05/11/2019 documented as of this encounter (statuses as of 12/24/2019) Immunizations Name Administration Dates Next Due Influenza Virus Vaccine Quad .5 mL IM 6+ MO 05/11/2019 TDAP 05/11/2019 documented as of this encounter Social History Tobacco Use Types Packs/Day Years Used Date Never Smoker Smokeless Tobacco: Never Used Sex Assigned at Date Recorded Not on file Job Start Date Occupation Industry Not on file Not on file Not on file Travel History Travel Start Travel End No recent travel history available. COVID-19 Exposure Response Date Recorded In the last month, have you been in contact with No / Unsure 12/21/2019 9:07 AM CDT someone who was confirmed or suspected to have Coronavirus / COVID-19? documented as of this encounter Last Filed Vital Signs Vital Sign Reading Time Taken Comments Blood Pressure 134/88 12/21/2019 9:18 AM CDT Pulse 77 12/21/2019 9:18 AM CDT Temperature - - Respiratory Rate 20 12/21/2019 9:18 AM CDT Oxygen Saturation 98% 12/21/2019 9:18 AM CDT Inhaled Oxygen Concentration - - Weight 132.9 kg (293 lb) 12/21/2019 9:18 AM CDT Height - - Body Mass Index 39.74 11/04/2019 8:00 PM CDT documented in this encounter Patient Instructions Patient InstructionsShalom Harris MD - 12/21/2019 9:00 AM CDT Patient Education Depression Depression is one of the most common mental health problems today. It is not just a state of unhappiness or sadness. It is a true disease. The cause seems to be related to a decrease in chemicals that transmit signals in the brain. Having a family history of depression, alcoholism, or suicide increases the risk. Chronic illness, chronic pain, migraine headaches, and high emotional stress also increase the risk. Depression is something we tend to recognize in others, but may have a hard time seeing in ourselves. It can show in many physical and emotional ways: Loss of appetite Overeating Not being able to sleep Sleeping too much Tiredness not related to physical exertion Restlessness or irritability Slowness of movement or speech Feeling depressed or withdrawn Loss of interest in things you once enjoyed Troubleconcentrating, poor memory,trouble making decisions Thoughts of harming or killing oneself, or thoughts that life is not worth living Low self-esteem The treatment for depression may include both medicine and psychotherapy. Antidepressants can reducesuffering and can improve the ability to function during the depressed period. Therapy can offer emotional support and help you understand emotional factors that may be causing the depression. Home care Ongoing care and support help people manage this disease. Find a healthcare provider and therapist who meet your needs. Seek help when you feel like you may be getting ill. Be kind to yourself. Make it a point to do things that you enjoy (gardening, walking in nature, going to a movie). Reward yourself for small successes. Take care of your physical body. Eat a balanced diet (low in saturated fat and high in fruits andvegetables). Exercise at least 3 times a week for 30 minutes. Even mild-moderate exercise (like brisk walking) can make you feel better. Don't drink alcohol, which can make depression worse. Take medicine as prescribed. Tell each of your healthcare providers about all of the prescription and [id number] medicines, vitamins, and supplements you take.Certain supplements interact with medicines and can result in dangerous side effects.Ask your pharmacist when you have questions about medicine interactions. Talk with your family andtrusted friendsabout your feelings and thoughts.Ask them to help you recognize behavior changes early so you can get help and, if needed, medicine can be adjusted. Follow-up care Follow up with your healthcare provider, or as advised. Call 911 Call 911 if you: Have suicidal thoughts, a suicide plan, and the means to carry out the plan; or serious thoughts of hurting someone else Have trouble breathing Arevery confused Feel very drowsy or havetrouble awakening Faint or lose consciousness Have new chest pain that becomes more severe, lasts longer, or spreads into your shoulder, arm, neck, jaw, or back When to seek medical advice Call your healthcare provider right away if any of these happen: Feeling extreme depression, fear, anxiety, or anger toward yourself or others Feeling out of control Feeling that you may try to harm yourself or another Hearing voices that others do not hear Seeing things that others do not see Cant sleep or eat for 3 days in a row Friends or family express concern over your behavior and ask you to seek help [employer] last reviewed this educational content on 03/20/201719995826-5012 [employer]. [address] [place] [address], [place] [address]. All rights reserved. This information is not intended as a substitute for professional medical care. Always follow your healthcare professional's instructions. Patient Education Your Bodys Response to Anxiety Normal anxiety is part of the bodys natural defense system. It's an alert to a threat that is unknown, vague, or comes from your own internal fears.While youre in this state, your feelings can range from a vague sense of worry to physical sensations such as a pounding heartbeat. These feelingsmake you want to react to the threat. An anxiety response is normal in many situations. But when youhave an anxiety disorder, the same response can occur at the wrong times. Anxiety can be helpful Normal anxiety is a signal from your brain that warns you of a threat and is a normal response to help you prevent something or decrease the bad effects of something you can't control. For example, anxiety is a normal response to situations that might damage your body, separate you from a loved one, or lose your job. The symptoms of anxiety can be physical and mental. How does it feel? At certain times, people with anxiety may have: Dizziness Muscle tension or pain Restlessness Sleeplessness Trouble concentrating Racing heartbeat Fast breathing Shaking or trembling Stomachache Diarrhea Loss of energy Sweating Cold, clammy hands Chest pain Dry mouth Anxiety can also be a problem Anxiety can become a problem when it is hard to control, occurs for months, and interferes with important parts of your life. With an anxiety disorder, your body has the response described above, but in inappropriate ways. The response a person has depends on the anxiety disorder he or she has. With some disorders, the anxiety is way out of proportion to the threat that triggers it. With others, anxiety may occur even when there isnt a clear threat or trigger. Who does it affect? Some people are more prone to persistent anxiety than others. It tends to run in families, and it affects more younger people than older people, and more women than men. But no age, race, or gender is immune to anxiety problems. Anxiety can be treated The good news is that the anxiety thats disrupting your life can be treated. Check with your healthcare provider and rule out any physical problems that may be causing the anxiety symptoms. If an anxiety disorder is diagnosed seek mental healthcare. This is an illness and it can respond to treatment. Most types of anxiety disorders will respond to "talk therapy" and medicines. Working with your doctor or other healthcare provider, you can develop skills to help you cope with anxiety. You can alsogain the perspective you need to overcome your fears. Note:Good sources of support or guidance canbe found at your local hospital, mental health clinic, or an employee assistance program. How to cope with anxiety If anxiety is wearing you down, here are some things you can do to cope: Keep in mind that you cant control everything about a situation. Change what you can and let the rest take its course. Exerciseits a great way to relieve tension and help your body feel relaxed. Avoid caffeine and nicotine, which can make anxiety symptoms worse. Fight the temptation to turn to alcohol or unprescribed drugs for relief. They only make things worse in the long run. Educate yourself about anxiety disorders. Keep track of helpful online resources and books you can use during stressful periods. Try stress management techniques such as meditation. Consider online or in-person support groups. [employer] last reviewed this educational content on 06/20/201619994477-7033 [employer]. [address] [place] [address], [place] [address]. All rights reserved. This information is not intended as a substitute for professional medical care. Always follow your healthcare professional's instructions. documented in this encounter Progress Notes Shalom Harris MD - 12/21/2019 9:00 AM CDT Cc: Chief Complaint Patient presents with Follow-up Hand Pain Chest Pain No-Cardiac Stress Anxiety Pietro Christopher is a 44 year old male with PMH of bowel obstruction, pancreatitis, diverticulitis andas noted below presenting for follow-up Patient was seen in ER on 11/04/2019 for intermittent chest pain the he described at the time as "left-sided with radiation to the back, associated with dyspnea". Work-up at the time r/o cardiac etiology. CXR showed normal heart size, w/o pleural effusion, mild changes of atelectasis in the medial right lower lung and subtle density over the posterior left ninth rib with possible superimposed infection w/o focal consolidation. Patient was hospitalized, Stress test showed preserved EF and normal wall thickening w/o significant reversible perfusion defect. At this this, patient reports CP is resolved, notes increased stress and anxiety, in his live at [facility]. Patient recent had a son who was born prematurely at 32 weeks, currently hospitalized at [facility] . Patient is constantly worried about his son and , who is also not doing well, s/p tubal ligation following the of their son. Patient is also caring for their other son who is a year and a half, adding to overall stress and anxiety. Patient reports he made changes to his diet, cutting out fried meals, he started walking about a mile daily. Patient report reports intermittent REBOLLEDO, ranks as 6/10 on the scale, on OTC Tylenol PRN. Patient reports intermittent numbness and tingling of both hands, mostly when he feels stressed and anxious, denies trauma or recent falls. Patient reports he sleeps about 3-4 HRS daily, is worried about his Job, due to reduced hours, having to borrow money to pay his bills. Patient is currently very emotional in clinic, crying and worried about not being able to take care of his family. Patient is open to talking to a counselor. Patient reports good support (family and friends), denies SI/HI/VH/AH. Allergies Pietro is allergic to morphine. Medications Outpatient Medications Prior to Visit Medication Sig Dispense Refill Diphenhydramine-Acetaminophen (TYLENOL PM EXTRA STRENGTH) 25-500 mg Tab Take 1 tablet by mouth at bedtime as needed for Other (sleep aide). No facility-administered medications prior to visit. Histories Past Medical History: Diagnosis Date Bowel obstruction 2013 Diverticulitis 07/2018 Pancreatitis Past Surgical History: Procedure Laterality Date APPENDECTOMY CHOLECYSTECTOMY Social History Socioeconomic History Marital status: Single Spouse name: Not on file Number of children: Not on file Years of education: Not on file Highest education level: Not on file Occupational History Not on file Social Needs Financial resource strain: Not on file Food insecurity: Worry: Not on file Inability: Not on file Transportation needs: Medical: Not on file Non-medical: Not on file Tobacco Use Smoking status: Never Smoker Smokeless tobacco: Never Used Substance and Sexual Activity Alcohol use: Not on file Drug use: Not on file Sexual activity: Not on file Lifestyle Physical activity: Days per week: Not on file Minutes per session: Not on file Stress: Not on file Relationships Social connections: Talks on phone: Not on file Gets together: Not on file Attends methodist service: Not on file Active member of club or organization: Not on file Attends meetings of clubs or organizations: Not on file Relationship status: Not on file Intimate partner violence: Fear of current or ex partner: Not on file Emotionally abused: Not on file Physically abused: Not on file Forced sexual activity: Not on file Other Topics Concern Not on file Social History Narrative Not on file History reviewed. No pertinent family history. Review of Systems Constitutional: Negative for fatigue and unexpected weight change. HENT: Negative. Eyes: Negative for visual disturbance. Respiratory: Negative for chest tightness and shortness of breath. Cardiovascular: Negative for palpitations. Gastrointestinal: Negative for constipation and diarrhea. Genitourinary: Negative for polyuria. Musculoskeletal: Positive for myalgias. Skin: Negative. Neurological: Positive for headaches. Negative for weakness. Psychiatric/Behavioral: Positive for sleep disturbance. Endocrine: Negative for polydipsia, polyphagia and polyuria. Vital Signs BP 134/88 | Pulse 77 | Resp 20 | Wt 293 lb (132.9 kg) | SpO2 98% | BMI 39.74 kg/m Physical Exam Constitutional: He is oriented to person, place, and time. He appears distressed. HENT: Head: Normocephalic and atraumatic. Eyes: Pupils are equal, round, and reactive to light. EOM are normal. Neck: Normal range of motion. Neck supple. Cardiovascular: Normal rate, regular rhythm and normal heart sounds. Pulmonary/Chest: Effort normal and breath sounds normal. Abdominal: Soft. Bowel sounds are normal. Musculoskeletal: Normal range of motion. Neurological: He is alert and oriented to person, place, and time. Skin: Skin is warm. Capillary refill takes less than 2 seconds. Psychiatric: Depression and anxiety Imaging: Reviewed and Discussed CXR: 11/04/2019 FINDINGS: The lungs are clear except for mild changes of atelectasis in the medial right lower lung. Subtle density projecting over the posterior left ninth rib is likely projectional or related to atelectasis. Superimposed infection is also possibility in this region. No focal consolidation is seen. No pleural effusion or pneumothorax is identified. The heart size is normal. No acute bony abnormality. IMPRESSION Subtle rounded density projecting over the posterior left ninth rib/retrocardiac space probably represents atelectasis or superposition of osseous structures. Superimposed infection is also possibility. Correlate clinically. Cardiac (NM Stress Test): 11/05/2019 Findings: The overall quality of the study was fair. Motion artifact noted during stress images. Stress EKG revealed no inducible ischemia, reported separately. SPECT images demonstrate a small and very mild anterior and inferior reversible perfusion defect. This is likely motion artifact. Gated SPECT images demonstrate normal wall motion and myocardial thickening. Stress Values: EDV = 89 mL; ESV = 19 mL; EF = 79%. Rest Values: EDV = 107 mL; ESV = 38 mL; EF = 65%. IMPRESSION Motion artifact noted. No significant reversible perfusion defect. Preserved ejection fraction and normal wall thickening. Assessment/Plan Adjustment reaction with anxiety and depression - Anticipatory guidance discussed - CONSULT/REFERRAL PSYCHOLOGY - SERTraline 25 mg tablet; Take 1 tablet by mouth daily. Dispense: 30 tablet; Refill: 0 Non-cardiac chest pain - BP WNL. Most recent hospitalization with cardiac work-up reviewed and discussed. Imaging discussedand noted. Insomnia, unspecified type - CONSULT/REFERRAL PSYCHOLOGY - traZODone 50 mg tablet; Take 1 tablet by mouth at bedtime. Dispense: 30 tablet; Refill: 0 Chronic nonintractable headache, unspecified headache type - Stress and poor sleep pattern contributory. Education on stress management and sleep hygiene discussed - acetaminophen 650 mg CR tablet; Take 1 tablet by mouth every 8 (eight) hours as needed for Pain orFever. Dispense: 30 tablet; Refill: 1 Health Maintenance UTD: Flu vaccination Preventive Care: Medication reconciliation, patient education and anticipatory guidance completed. All questions and concerns addressed. AVS given, handout on Non-Cardiac Chest Pain, Anxiety & Depression provided. Return in about 4 weeks (around 01/18/2020), or if symptoms worsen or fail to improve. Shalom Harris MD, MPH, AASCVS Clinical Plumber Maintenance, Department of Family Medicine [facility] Primary & Specialty Care - [facility] 12/21/2019 10:18 AM documented in this encounter Plan of Treatment Date Type Specialty Care Team Description 01/18/2020 Office Visit Family Medicine Shalom Harris MD [address] [place] [address] Dr Chavez [place] [address] [phone] Health Maintenance Due Date Last Done Comments INFLUENZA VACCINE (#1) 2020 05/11/2019 Depression Screening 05/11/2020 05/11/2019 DTaP,Tdap,and Td Vaccines (2 - Td) 05/11/2029 05/11/2019 PNEUMOCOCCAL 0-64 YEARS COMBINED Aged Out No longer eligible based on SERIES patient's age to complete this topic documented as of this encounter Results Not on filedocumented in this encounter Visit Diagnoses Diagnosis Adjustment reaction with anxiety and dep ression - Primary Adjustment disorder with mixed anxiety a nd depressed mood Non-cardiac chest pain Other chest pain Insomnia, unspecified type Chronic nonintractable headache, unspeci fied headache type documented in this encounter Insurance Payer Benefit Plan Subscriber ID Effective Dates Phone Address Type / Group [facility] [id number] [facility]-[place] [phone] [address] PPO/POS [place] t [id number] [place] [address] documented as of this encounter
--- OUTSIDE RECORDS SUMMARY | 2020-03-10 21:57 | XMS REPORT | Summary of Care ---
:1975 Author Organization [facility] Address [address] [place] [id number] Care Team Providers Name Role Phone Shalom Harris MD Primary Care Provider Reason for Visit Reason Comments Refill Request Encounter Details Date Type Department Care Team Description 01/13/2020 Refill [facility] Pediatric and [place] Shalom chandler MD Refill Request Adult Primary Care- [address] [facility] [address] [place] [address] [place] [address] [address] [place] [address] [phone] Allergies Active Allergy Reactions Severity Noted Date Comments Morphine Nausea and/or Vomiting 01/12/2019 documented as of this encounter (statuses as of 01/18/2020) Medications Medication Sig Dispensed Refills Start Date End Date Status acetaminophen 650 mg Take 1 tablet 30 tablet 1 12/21/2019 Active CR by mouth every tabletIndications: 8 (eight) Chronic hours as nonintractable needed for headache, Pain or Fever. unspecified headache type SERTRALINE 25 mg TAKE 1 TABLET 30 tablet 0 01/18/2020 Active tabletIndications: BY MOUTH EVERY Adjustment reaction DAY with anxiety and depression TRAZODONE 50 mg TAKE 1 TABLET 30 tablet 0 01/18/2020 Active tabletIndications: BY MOUTH Insomnia, EVERYDAY AT unspecified type BEDTIME traZODone 50 mg Take 1 tablet 30 tablet 0 12/21/2019 Discontinued tabletIndications: by mouth at 0 Insomnia, bedtime. unspecified type SERTraline 25 mg Take 1 tablet 30 tablet 0 12/21/2019 01/18/20 2 Discontinued tabletIndications: by mouth 0 Adjustment reaction daily. with anxiety and depression documented as of this encounter (statuses as of 01/18/2020) Active Problems Problem Noted Date Arthralgia of right hand 01/18/2020 Psychophysiological insomnia 12/21/2019 Adjustment reaction with anxiety and depression 2019 Non-cardiac chest pain 11/04/2019 Need for influenza vaccination 05/14/2019 Need for Tdap vaccination 05/14/2019 Chronic nonintractable headache, unspecified headache type 05/11/2019 Obesity (BMI 30-39.9) 05/11/2019 Frequency of micturition 05/11/2019 documented as of this encounter (statuses as of 01/18/2020) Immunizations Name Administration Dates Next Due Influenza [...] been in contact with No / Unsure 01/18/2020 8:18 AM CDT someone who was confirmed or suspected to have Coronavirus / COVID-19? documented as of this encounter Last Filed Vital Signs Not on filedocumented in this encounter Plan of Treatment Date Type Specialty Care Team Description 01/25/2020 Ancillary Visit Physical Therapy Diana Zhang, PT [address] [place] [address] 04/25/2020 Office Visit Family Medicine Shalom Harris MD [address] [place] [address] Dr Chavez [place], [place] [address] [phone] Health Maintenance Due Date Last Done Comments [...] Adjustment reaction with anxiety and dep ression Adjustment disorder with mixed anxiety a nd depressed mood Insomnia, unspecified type documented in this encounter Insurance Payer Benefit Plan Subscriber ID Effective Dates Phone Address Type / Group [facility] [id number] 2019-[place] [phone] [address] PPO/POS [place] t [id number] [place] [address] documented as of this encounter
--- OUTSIDE RECORDS SUMMARY | 2020-03-10 21:57 | XMS REPORT | Summary of Care ---
:1975 Author Organization [facility] Address [address] [place] [address] Care Team Providers Name Role Phone Shalom Harris MD Primary Care Provider Reason for Referral (Routine) Status Reason Specialty Diagnoses / Referred By Referred To Procedures Contact Contact Authorized Physical Therapy Diagnoses Costochondritis Steven, Procedures CONSULT/REFERRAL PHYSICAL THERAPY NV PHYSICAL THERAPY EVALUATION LOW COMPLEX 20 MINS NV PHYSICAL THERAPY EVALUATION MOD COMPLEX 30 MINS NV PHYSICAL THERAPY EVALUATION HIGH COMPLEX 45 MINS NV THERAPEUTIC EXERCISES MD Shalom NV NEUROMUSC REE DUCAT,1+ AREAS, EA 15 MIN NV MANUAL THER TECH,1+REGIONS,EA 15 MIN NV THERAPEUT ACTVITY DIRECT PT CONTACT EACH 15 MIN NV SELF-CARE/HOME MGMT TRAINING EACH 15 MINUTES 146 [facility] [address] [address] (Routine) Status Reason Specialty Diagnoses / Referred By Referred To Procedures Contact Contact New Request Psychiatry Diagnoses Adjustment reaction with anxiety and depression Psychophysiological insomnia Shalom Harris Web-Psychiatry Procedures CONSULT/REFERRAL PSYCHIATRY ADULT MD Staff 146 [facility] [address] [place] [address], [address] Phone: [phone] Phone: Fax: Reason for Visit Reason Comments Follow-up 4 week f/u Anxiety Depression Chest Pain Hand Pain INSOMNIA Encounter Details Date Type Department Care Team Description 01/18/2020 Office Visit [facility] Steven Adjustment reac tion with anxiety and depression (Primary Dx); Pediatric and MD Shalom Costochondritis; Adult Primary [address] [place] [address] [facility] of [facility] Psychophys[facility] insomnia; 146 [facility] [place] [address] Cellulitis of right index finger; Drive, [address] [place], [place] Contusion of right index fin veronika without damage to nail, initial encounter AILEEN Aguilera [phone] Allergies Active Allergy Reactions Severity Noted Date Comments Morphine Nausea and/or Vomiting 01/12/2019 documented as of this encounter (statuses as of 01/24/2020) Medications Medication Sig Dispensed Refills Start Date End Date Status acetaminophen 650 mg Take 1 30 tablet 1 12/21/2019 Active CR tabletIndications: tablet by Chronic mouth every nonintractable 8 (eight) headache, unspecified hours as headache type needed for Pain or Fever. tiZANidine 2 mg Take 1 30 tablet 1 01/18/2020 Act marilu tabletIndications: tablet by Costochondritis mouth every 8 (eight) hours as needed (muscle spasms). naproxen 500 mg Take 1 20 tablet 0 01/18/2020 Act marilu tabletIndications: tablet by Costochondritis mouth 2 (two) times daily with meals. doxycycline hyclate Take 1 10 tablet 0 01/18/2020 Active 100 mg tablet by tabletIndications: mouth 2 Arthralgia of right (two) times hand, Cellulitis of daily. right index finger, Contusion of right index finger without damage to nail, initial encounter traZODone 50 mg Take 1 30 tablet 0 12/21/2019 01/18/2020 Di scontinued tabletIndications: tablet by Insomnia, unspecified mouth at type bedtime. SERTraline 25 mg Take 1 30 tablet 0 12/21/2019 01/18/2020 D iscontinued tabletIndications: tablet by Adjustment reaction mouth daily. with anxiety and depression documented as of this encounter (statuses as of 01/24/2020) Active Problems Problem Noted Date Cellulitis of right index finger 01/24/2020 Contusion of right index finger without damage to nail , initial encounter 01/24/2020 Arthralgia of right hand 01/18/2020 Psychophysiological insomnia 12/21/2019 Adjustment reaction with anxiety and depression 2019 Non-cardiac chest pain 11/04/2019 Need for influenza vaccination 05/14/2019 Need for Tdap vaccination 05/14/2019 Chronic nonintractable headache, unspecified headache type 05/11/2019 Obesity (BMI 30-39.9) 05/11/2019 Frequency of micturition 05/11/2019 documented as of this encounter (statuses as of 01/24/2020) Immunizations Name Administration Dates Next Due Influenza Virus Vaccine Quad .5 mL IM 6+ MO 05/11/2019 TDAP 05/11/2019 documented as of this encounter Social History Tobacco Use Types Packs/Day Years Used Date Never Smoker Smokeless Tobacco: Never Used Sex Assigned at Date Recorded Not on file COVID-19 Exposure Response Date Recorded In the last month, have you been in contact with No / Unsure 01/18/2020 8:18 AM CDT someone who was confirmed or suspected to have Coronavirus / COVID-19? documented as of this encounter Last Filed Vital Signs Vital Sign Reading Time Taken Comments Blood Pressure 127/86 01/18/2020 8:26 AM CDT Pulse 82 01/18/2020 8:26 AM CDT Temperature 36.6 C (97.9 F) 01/18/2020 8:26 AM CDT Respiratory Rate 18 01/18/2020 8:26 AM CDT Oxygen Saturation 96% 01/18/2020 8:26 AM CDT Inhaled Oxygen Concentration - - Weight 133.2 kg (293 lb 11.2 oz) 01/18/2020 8:26 AM CDT Height 182.9 cm (6') 01/18/2020 8:26 AM CDT Body Mass Index 39.83 01/18/2020 8:26 AM CDT documented in this encounter Patient Instructions Patient InstructionsShalom Harris MD - 01/18/2020 8:00 AM CDT Patient Education Adjustment Disorder Life changeswork, family, parents, childreneach can cause a great deal of stress in life. An adjustment disorder means you have trouble dealing with this change and stress. This problem can have serious results. You may feel helpless, depressed, make bad decisions, or even feel like you want to hurt yourself. Adjustment disorder can cause anxiety or depression. It is triggered by daily stresses such as: of a loved one Divorce Marriage General life changes such as changing or leaving a job Moving Illness or other health issue for you or a family member Sex Money Symptoms may include: Sadness or crying Anxiety Insomnia Poor concentration Trouble doing simple things New problems at work or with family or friends Loss of self-esteem Sense of hopelessness Feeling trapped or cut off from others With this condition, it is common to feel sad, guilty, hopeless, and restless. These feelings may continue for weeks or months. It can be helpful to identify what is causing the additional stress and take steps to get extra support. If new stressful events do not happen, it is likely that you will gradually start feeling better. Home care If you have been given a prescription for medicine,take it as directed. It helps to talk about your feelings and thoughts with family or friends who understand and support you. Follow-up care Follow up with your healthcare provider, or therapist as advised. Let them know if this condition does not improve or gets worse. When to seek medical advice Call your healthcare provider right away if any of these happen: Worsening depression or anxiety Feeling out of control Thoughts of harming yourself or another Being unable to care for yourself [employer] last reviewed this educational content on 03/20/201719999517-4470 [employer]. [address] [place] [address]. All rights reserved. This information is not intended as a substitute for professional medical care. Always follow your healthcare professional's instructions. documented in this encounter Progress Notes Shalom Harris MD - 01/18/2020 8:00 AM CDT Cc: Chief Complaint Patient presents with Follow-up 4 week f/u Anxiety Depression Chest Pain Hand Pain INSOMNIA Pietro Christopher is a 44 year old male with PMH of bowel obstruction, pancreatitis, diverticulitis andadjustment reaction with anxiety and depression presenting for follow-up of his adjustment reaction with anxiety Patient recently had a son and his was s/p tubal ligation and not doing well. These stressors resulted an adjustment reaction with anxiety. He feels better now and states the stress is minimal. He did not follow up with a psychiatrist due to concern of the stigma, but after counseling he was open to seeing them in the future. He also states the trazodone makes him feel "mellow" and he isworried it might change his personality. Patient appears to be improved emotionally and denies SI/HI/AVH Patient denies nausea, vomiting, weight gain, orthostatic hypotension. Patient reports his insomnia is not longer a problem, but he has to take 2 trazadone 50 mg instead of one. Patient reports continued positional chest pain. Pain is elicited only when he leans on left arm. The pain is sharp, 4/10 and the pain is relieved when he moves from his left to his right. Patient hastried Dara for the pain, but is not sure if the pain improved. Patient reports having pain in his middle index finger. He was taking a nail off the finger when he first noticed the pain a week ago. Pain is 9/10 with nothing improving or worsening the pain, but thefinger is very tender. He says his finger feels warmer than normal, but denies fever or chills. Allergies Pietro is allergic to morphine. Medications Outpatient Medications Prior to Visit Medication Sig Dispense Refill acetaminophen 650 mg CR tablet Take 1 tablet by mouth every 8 (eight) hours as needed for Pain or Fever. 30 tablet 1 SERTraline 25 mg tablet Take 1 tablet by mouth daily. 30 tablet 0 traZODone 50 mg tablet Take 1 tablet by mouth at bedtime. 30 tablet 0 No facility-administered medications prior to visit. Histories Past Medical History: Diagnosis Date Bowel obstruction 2014 Diverticulitis 07/2018 Pancreatitis Past Surgical History: Procedure [...] file Gets together: Not on file Attends uatsdin service: Not on file Active member of [...] file Social History Narrative Not on file No family history on file. Review of Systems Constitutional: Positive for fatigue. HENT: Negative. Respiratory: Negative for chest tightness and shortness of breath. Cardiovascular: Negative for palpitations. Gastrointestinal: Negative for constipation and diarrhea. Genitourinary: Negative for polyuria. Musculoskeletal: Positive for joint swelling. Skin: Negative. Neurological: Positive for headaches. Negative for weakness. Psychiatric/Behavioral: Positive for sleep disturbance. Endocrine: Negative for polydipsia, polyphagia and polyuria. Vital Signs BP 127/86 (BP Location: Right arm, Patient Position: Sitting, BP CUFF SIZE: Adult Large) | Pulse 82 | Temp 36.6 C (97.9 F) (Temporal Artery) | Resp 18 | Ht 6' (1.829 m) | Wt 293 lb 11.2 oz (133.2 kg) | SpO2 96% | BMI 39.83 kg/m Physical Exam Constitutional: He is oriented to person, place, and time. He appears well- developed and well-nourished. No distress. HENT: Head: Normocephalic and atraumatic. Eyes: Pupils are equal, round, and reactive to light. EOM are normal. Neck: Normal range of motion. Neck supple. Cardiovascular: Normal rate, regular rhythm and normal heart sounds. Pulmonary/Chest: Effort normal and breath sounds normal. Abdominal: Soft. Bowel sounds are normal. Musculoskeletal: Normal range of motion. He exhibits tenderness. Tenderness on right 2nd digit Neurological: He is alert and oriented to person, place, and time. Skin: Skin is warm. Capillary refill takes less than 2 seconds. He is not diaphoretic. Psychiatric: He has a normal mood and affect. His behavior is normal. Judgment and thought content normal. Depression and anxiety Imaging: Reviewed and Discussed [...] Adjustment reaction with anxiety and depression - SERTraline 25 mg tablet; Take 1 tablet by mouth daily. Dispense: 30 tablet; Refill: 0 - CONSULT/REFERRAL PSYCHIATRY ADULT Costochondritis - CONSULT/REFERRAL PHYSICAL THERAPY - tiZANidine 2 mg tablet; Take 1 tablet by mouth every 8 (eight) hours as needed (muscle spasms). Dispense: 30 tablet; Refill: 1 - naproxen 500 mg tablet; Take 1 tablet by mouth 2 (two) times daily with meals. Dispense: 20 tablet; Refill: 0 Arthralgia of right hand - Doxycyclin hyclate 100 mg PO 10 days Psychophysiological insomnia - traZODone 50 mg tablet; Take 2 tablet by mouth at bedtime. Dispense: 30 tablet; Refill: 0 - CONSULT/REFERRAL PSYCHIATRY ADULT Health Maintenance UTD: Flu vaccination Preventive Care: Medication reconciliation, patient education and anticipatory guidance completed. All questions and concerns addressed. AVS given, handout provided. Return in about 3 months (around 04/19/2020), or if symptoms worsen or fail to improve. ASPEN Madera I personally examined the patient 01/18/2020 and agree with MS 4 (Oren Muñiz) note as written, including any changes or additions to the medical student's note. I actively participated in the decision making process. Please see note for additional details. Shalom Harris MD, MPH, [facility] Clinical Loading And Unloading Supervisor, Department of Family Medicine [facility] Primary & Specialty Care - ADC documented in this encounter Plan of Treatment Date Type Specialty Care Team Description 01/25/2020 Ancillary Visit Physical Therapy Diana Zhang, PT [address] [place] [address] 04/25/2020 Office Visit Family Medicine Shalom Harris MD [address] [place] [address] [facility] 205 [place], [place] [address] [phone] Health Maintenance Due Date Last Done Comments INFLUENZA VACCINE (#1) 2020 05/11/2019 Depression Screening 05/11/2020 05/11/2019 Colorectal Cancer Screening 2023 DTaP,Tdap,and Td Vaccines (2 - Td) 05/11/2029 05/11/2019 PNEUMOCOCCAL 0-64 YEARS COMBINED Aged Out No longer eligible based on SERIES patient's age to complete this topic documented as of this encounter Results Not on filedocumented in this encounter Visit Diagnoses Diagnosis Adjustment reaction with anxiety and dep ression - Primary Adjustment disorder with mixed anxiety a nd depressed mood Costochondritis Tietze's disease Arthralgia of right hand Pain in joint, hand Psychophysiological insomnia Persistent disorder of initiating or cuong ntaining sleep Cellulitis of right index finger Contusion of right index finger without damage to nail, initial encounter documented in this encounter Insurance Payer Benefit Plan Subscriber ID Effective Dates Phone Address Type / Group [facility] [id number] 2019-Presmary [phone] [address] PPO/POS [place] t 7 [id number] [place] [address] documented as of this encounter
--- OUTSIDE RECORDS SUMMARY | 2020-03-10 21:57 | XMS REPORT | Summary of Care ---
:1975 Author Organization [facility] Address [address] [place] [address] Care Team Providers Name Role Phone Shalom Harris MD Primary Care Provider Reason for Referral (Routine) Status Reason Specialty Diagnoses / Referred By Referred To Procedures Contact Contact New Request Psychiatry Diagnoses Adjustment reaction with anxiety and depression Insomnia, unspecified type Shalom Harris, Web-Psychiatry Procedures CONSULT/REFERRAL PSYCHOLOGY MD Staff [address] [place] [address] Dr Vicente, [facility] A [facility] [address] [place] [address] Phone: Reason for Visit Reason Comments Follow-up Hand Pain Chest Pain No-Cardiac Stress Anxiety (Routine) Status Reason Specialty Diagnoses / Referred By Referred To Procedures Contact Contact New Request Diagnoses Chest pain, unspecified type Gabino Noe MD Pcp, Patient Does Procedures Discharge Follow-up: PCP PATIENT DOES NOT HAVE A PCP; 1 Week 301 [facility] Not Have A [address] [address] [place] Phone: [phone] Phone: Encounter Details Date Type Department Care Team Description 12/21/2019 Office Visit [facility] Shalom Harris, Adjustment reaction with anxiety and depression (Primary Dx); Pediatric and Adult MD Non-cardiac chest pain; Primary Care- [address] [place] [address] Insomnia, unspecified type; [facility] 205 Chronic nonintractable headache, unspeci fied headache type [address] [place], [place] [address], [address] [place] [address] Allergies Active Allergy Reactions Severity [...] providers about all of the prescription and [id number]-grhxfvl medicines, vitamins, and supplements you take.Certain supplements [...] behavior and ask you to seek help [employer] last reviewed this educational content on 03/20/201719997520-4052 [employer]. [address] [place] [address], [place] [address]. All rights reserved. This information is not [...] meditation. Consider online or in-person support groups. [employer] last reviewed this educational content on 06/20/201619999147-1970 [employer]. [address] [place] [address], [place] [address]. All rights reserved. This information is not [...] stress and anxiety, in his [facility]. Patient recent had a son who was born prematurely at 32 weeks, currently hospitalized at [facility] . Patient is constantly worried about his [...] file Gets together: Not on file Attends rastafari service: Not on file Active member of [...] fail to improve. Shalom Harris MD, MPH, AAFLVS Clinical Professor Of Environmental Engineering, Department of Family Medicine [facility] Primary & Specialty Care - ADC 12/21/2019 10:18 AM documented in this encounter Plan of Treatment Date Type Specialty Care Team Description 01/18/2020 Office Visit Family Medicine Shalom Harris MD [address] [place] [address] Dr Chavez [place] [address] [phone] Health Maintenance Due Date Last Done Comments [...] Effective Dates Phone Address Type / Group [facility] [id number] 2019-Dolores [phone] [address] PPO/POS [place] t [id number] [place] [address] documented as of this encounter
--- OUTSIDE RECORDS SUMMARY | 2020-03-10 21:57 | XMS REPORT | Continuity of Care Document ---
:1975 Author Organization [facility] t Address [address] [place] [address] Care Team Providers Name Role Phone Steven CARLSON Attending Clinician Leatha LENTZ Attending Clinician Unavailable Problems This patient has no known problems. Allergies, Adverse Reactions, Alerts This patient has no known allergies or adverse reactions. Medications This patient has no known medications. Procedures This patient has no known procedures. Encounters Start End Encounter Admission Attending Care Care Encounter Source Date/Time Date/Time Type Type Clinicians Facility Department ID 2020-02-09 2020-02-09 Refill Steven CTNNEKA [id number] 00:00:00 00:00:00 Shalom Aguilera [id number] [place] [id number] Professio [phone] nal 044 Building 2020-01-25 2020-01-25 Case Leatha CTNNEKA [id number] 00:00:00 00:00:00 Management Diana Willy [id number] [place] [id number] Professio [phone] nal 179 Building 2020-01-18 2020-01-18 Office Steven CTNNEKA [id number] 08:20:50 09:27:31 Visit Shalom Minorton [id number] [place] [id number] Professio [phone] nal 044 [facility] Results This patient has no known results.
--- OUTSIDE RECORDS SUMMARY | 2020-03-10 21:58 | XMS REPORT | Summary of Care ---
:1975 Author [address] [facility] Address [address] [place] [address] Care Team Providers Name Role Phone Shalom Harris MD Primary Care Provider Reason for Referral (Routine) Status Reason Specialty Diagnoses / Referred By Referred To Procedures Contact Contact Authorized Physical Therapy Diagnoses Costochondritis Steven, Procedures CONSULT/REFERRAL PHYSICAL THERAPY OR PHYSICAL THERAPY EVALUATION LOW COMPLEX 20 MINS OR PHYSICAL THERAPY EVALUATION MOD COMPLEX 30 MINS OR PHYSICAL THERAPY EVALUATION HIGH COMPLEX 45 MINS OR THERAPEUTIC EXERCISES MD Shalom OR NEUROMUSC REE DUCAT,1+ AREAS, EA 15 MIN OR MANUAL THER TECH,1+REGIONS,EA 15 MIN OR THERAPEUT ACTVITY DIRECT PT CONTACT EACH 15 MIN OR SELF-CARE/HOME MGMT TRAINING EACH 15 MINUTES 146 [facility] [address] [address] (Routine) Status Reason Specialty Diagnoses / Referred By Referred To Procedures Contact Contact New Request Psychiatry Diagnoses Adjustment reaction with anxiety and depression Psychophysiological insomnia Shalom Harris Web-Psychiatry Procedures CONSULT/REFERRAL PSYCHIATRY ADULT MD Staff 146 [facility] [address] [place] [address], [address] Phone: [phone] Phone: Fax: Reason for Visit Reason Comments Follow-up 4 week f/u Anxiety Depression Chest Pain Hand Pain INSOMNIA Encounter Details Date Type Department Care Team Description 01/18/2020 Office Visit [facility] Steven Adjustment reac tion with anxiety and depression (Primary Dx); Pediatric and MD Shalom Costochondritis; Adult Primary [address] [place] [address] Arthralgia of right hand; [facility] Psychophysiological insomnia; 146 [facility] [place] [address] Cellulitis of right index finger; Drive, [address] [place], [place] Contusion of right index fin veronika without damage to nail, initial encounter AILEEN Aguilera [phone] Allergies Active Allergy Reactions Severity Noted Date [...] another Being unable to care for yourself [employer] last reviewed this educational content on 03/20/201719991743-9296 [employer]. [address] [place] [address]. All rights reserved. This information is not [...] file Gets together: Not on file Attends hindu service: Not on file Active member of [...] for additional details. Shalom Harris MD, MPH, [facility] Clinical Photographic Engineer, Department of Family Medicine [facility] Primary & Specialty Care - ADC documented in this encounter Plan of Treatment Date Type Specialty Care Team Description 01/25/2020 Ancillary Visit Physical Therapy Diana Zhang, PT [address] [place] [address] 04/25/2020 Office Visit Family Medicine Shalom Harris MD [address] [place] [address] [facility] 205 [place], [place] [address] [phone] Health Maintenance Due Date Last Done Comments [...] Effective Dates Phone Address Type / Group [facility] [id number] 2019-Presmary [phone] [address] PPO/POS [place] t [address] [id number] [place] [address] documented as of this encounter
--- OUTSIDE RECORDS SUMMARY | 2020-03-10 21:58 | XMS REPORT | Summary of Care ---
:1975 Author Organization [facility] Address [address] [place] [address] Care Team Providers Name Role Phone Shalom Harris MD Primary Care Provider Reason for Visit Reason Comments Refill Request Encounter Details Date Type Department Care Team Description 02/09/2020 Refill [facility] and [place] Shalom chandler MD Refill Request Adult Primary Care- [address] [facility] [address] [place] [address] [address] [place] [address] [phone] Allergies Active Allergy Reactions Severity Noted Date Comments Morphine Nausea and/or Vomiting 01/12/2019 documented as of this encounter (statuses as of 02/12/2020) Medications Medication Sig Dispensed Refills Start Date End Date Status acetaminophen 650 mg Take 1 tablet 30 tablet 1 12/21/2019 Active CR tabletIndications: by mouth every Chronic 8 (eight) nonintractable hours as headache, unspecified needed for headache type Pain or Fever. tiZANidine 2 mg Take 1 tablet 30 tablet 1 01/18/2020 Active tabletIndications: by mouth every Costochondritis 8 (eight) hours as needed (muscle spasms). naproxen 500 mg Take 1 tablet 20 tablet 0 01/18/2020 Active tabletIndications: by mouth 2 Costochondritis (two) times daily with meals. doxycycline hyclate Take 1 tablet 10 tablet 0 01/18/2020 Active 100 mg by mouth 2 tabletIndications: (two) times Arthralgia of right daily. hand, Cellulitis of right index finger, Contusion of right index finger without damage to nail, initial encounter SERTRALINE 25 mg TAKE 1 TABLET 90 tablet 1 02/12/2020 Active tabletIndications: BY MOUTH EVERY Adjustment reaction DAY with anxiety and depression TRAZODONE 50 mg TAKE 1 TABLET 90 tablet 1 02/12/2020 Active tabletIndications: BY MOUTH Insomnia, unspecified EVERYDAY AT type BEDTIME SERTRALINE 25 mg TAKE 1 TABLET 30 tablet 0 01/18/2020 02/12/20 2 Discontinued tabletIndications: BY MOUTH EVERY 0 Adjustment reaction DAY with anxiety and depression TRAZODONE 50 mg TAKE 1 TABLET 30 tablet 0 01/18/2020 Discontinued tabletIndications: BY MOUTH 0 Insomnia, unspecified EVERYDAY AT type BEDTIME documented as of this encounter (statuses as of 02/12/2020) Active Problems Problem Noted Date Cellulitis of [...] as of this encounter (statuses as of 02/12/2020) Immunizations Name Administration Dates Next Due Influenza [...] Signs Not on filedocumented in this encounter Miscellaneous Notes Telephone Encounter - Shalom Harris MD - 02/12/2020 2:12 PM CDTRx sent, let patient know documented in this encounter Plan of Treatment Date Type Specialty Care Team Description 04/25/2020 Office Visit Family Medicine Shalom Harris MD [address] [place] [address] Dr [place] [place], [place] [address] [phone] Health Maintenance Due Date Last Done Comments [...] Phone Address Type / Group BCBS OF BCBS [facility] [id number] 2019-Dolores [phone] [address] PPO/[place] t 7 [id number] [place] [address] documented as of this encounter
--- OUTSIDE RECORDS SUMMARY | 2020-03-10 21:58 | XMS REPORT | Summary of Care ---
:1975 Author Organization [facility] Address [address] [place] [address] Care Team Providers Name Role Phone Shalom Harris MD Primary Care Provider Reason for Visit Reason Comments DNKA Encounter Details Date Type Department Care Team Description 01/25/2020 Case Management [facility] Physical Sweet, Lilian sa, PT DNKA Therapy- [address] Professional Office [place], [place] [id number] [place] [address] [address] [place] [address] [facility] [phone] Allergies Active Allergy Reactions Severity Noted Date Comments Morphine Nausea and/or Vomiting 01/12/2019 documented as of this encounter (statuses as of 01/25/2020) Medications Medication Sig Dispensed Refills Start Date End Date Status acetaminophen 650 mg CR Take 1 tablet by 30 tablet 1 0 Active tabletIndications: mouth every 8 Chronic nonintractable (eight) hours as headache, unspecified needed for Pain headache type or Fever. SERTRALINE 25 mg TAKE 1 TABLET BY 30 tablet 0 01/18/2020 Active tabletIndications: MOUTH EVERY DAY Adjustment reaction with anxiety and depression TRAZODONE 50 mg TAKE 1 TABLET BY 30 tablet 0 01/18/2020 Active tabletIndications: MOUTH EVERYDAY Insomnia, unspecified AT BEDTIME type tiZANidine 2 mg Take 1 tablet by 30 tablet 1 01/18/2020 Active tabletIndications: mouth every 8 Costochondritis (eight) hours as needed (muscle spasms). naproxen 500 mg Take 1 tablet by 20 tablet 0 01/18/2020 Active tabletIndications: mouth 2 (two) Costochondritis times daily with meals. doxycycline hyclate 100 Take 1 tablet by 10 tablet 0 0 Active mg tabletIndications: mouth 2 (two) Arthralgia of right times daily. hand, Cellulitis of right index finger, Contusion of right index finger without damage to nail, initial encounter documented as of this encounter (statuses as of 01/25/2020) Active Problems Problem Noted Date Cellulitis of [...] as of this encounter (statuses as of 01/25/2020) Immunizations Name Administration Dates Next Due Influenza [...] Office Visit Family Medicine Shalom Harris MD [address] [place] [address] [address] [place], [place] [address] [phone] Health Maintenance Due Date Last Done Comments INFLUENZA VACCINE (#1) 2020 05/11/2019 Depression Screening 05/11/2020 05/11/2019 Colorectal Cancer Screening 2023 DTaP,Tdap,and Td Vaccines (2 - Td) 05/11/2029 05/11/2019 PNEUMOCOCCAL 0-64 YEARS COMBINED Aged Out No longer eligible based on SERIES patient's age to complete this topic documented as of this encounter Results Not on filedocumented in this encounter Insurance Payer Benefit Plan Subscriber ID Effective Dates Phone Address Type / Group BCBS OF [employer] [place] [id number] 2019-[place]ores [phone] [address] [place] P[place] t 7 [id number] documented as of this encounter
[2020-03-10 23:45] LABS: Protime INR 0.97
[2020-03-10] MEDS ORDERED: FENTANYL CITR 100 MCG/2 ML ONE (23:46)
[2020-03-10 23:47] LABS: Absolute Lymphocytes (CBC) 4.8 K/uL (0.7-4.9); Hematocrit 38.3 % (39.6-49.0); Lymphocytes % 54.3 % (15.3-44.8); MPV 8.6 fL (7.6-11.3); RBC Red Blood Cell Count 4.52 M/uL (4.33-5.43)
[2020-03-10 23:58] LABS: ALT/SGPT 25 U/L (12-78); AST/SGOT 12 U/L (15-37); Albumin 3.3 g/dL (3.4-5.0); Alkaline Phosphatase 98 U/L (45-117); BUN Blood Urea Nitrogen 13 mg/dL (7-18); Bicarbonate 26 mmol/L (21-32); Bilirubin Direct < 0.1 mg/dL (0-0.2); Bilirubin Total 0.3 mg/dL (0.2-1.0); Glucose Level 168 mg/dL (74-106); Magnesium 2.1 mg/dL (1.8-2.4); NT PRO-BNP 9 pg/mL (<125); Potassium 3.5 mmol/L (3.5-5.1); Protein, Total 7.9 g/dL (6.4-8.2); Sodium Level 140 mmol/L (136-145); Troponin (Emerg Dept Use Only) < 0.02 ng/mL (0.0-0.045)
[2020-03-11 00:48] LABS: Blood Morphology Comment NOT SEEN (NOT SEEN); Platelet Estimate ADEQ
[2020-03-11 01:05] LABS: Urine Bacteria <20 /HPF (NONE SEEN); Urine Blood TRACE (NEG); Urine Culture Reflex Order NOT NEEDED; Urine Glucose 1+ (NEG); Urine Protein NEGATIVE (NEG); Urine RBC <5 /HPF (NONE SEEN); Urine Specific Gravity >1.030 (1.005-1.030); Urine pH 5.5 (5.0-7.0)
[2020-03-11] MEDS ORDERED: FENTANYL CITR 100 MCG/2 ML ONE (02:06)
[2020-03-11] MEDS ORDERED: metroNIDAZOLE 500 MG TABLET ONE (03:06)
[2020-03-11] MEDS ORDERED: CIPROFLOXACIN HCL 500 MG TAB ONE (03:06)
[2020-03-11] MEDS ORDERED: KETOROLAC 30 MG/ML INJ ONE (03:07)
[2020-03-11] MEDS ORDERED: HYDROMORPHONE HCL 0.5 MG/0.5 ML INJ ONE (03:12)
--- NOTE | 2020-03-11 03:22 | ER ---
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 ll1 Pain to left arm also. Abdominal pain and testicular pain for 3 days. + N/V/D. No known fever. Coronavirus screen: Client denies travel out of the [place] in the last 14 days. At this time, the client does not indicate any symptoms associated with coronavirus-19. Ebola Screen: Patient denies travel to an Ebola-affected area in the 21 days before illness onset. Initial Sepsis Screen: Does the patient meet any 2 criteria? HR > 90 bpm. No. Patient's initial sepsis screen is negative. Risk Assessment: Do you want to hurt yourself or someone else? Patient reports no desire to harm self or others. Onset of symptoms was March 07, 2020. 22:05 Method Of Arrival: Ambulatory ll1 22:05 Acuity: ELSA 3 ll1 03/11 01:41 Initial Sepsis Screen: Does the patient have a suspected source of infection? No. rv Patient's initial sepsis screen is negative. Historical: - Allergies: 03/10 22:08 Morphine; ll1 - PMHx: 22:08 bowel obstruction; Diverticulitis; Pancreatitis; ll1 - PSHx: 22:08 Appendectomy; Cholecystectomy; ll1 - Immunization history:: Flu vaccine is up to date. - Social history:: Smoking status: Patient denies any tobacco usage or history of. Screenin:00 Abuse screen: Denies threats or abuse. Denies injuries from another. Nutritional rv screening: No deficits noted. 23:00 Tuberculosis screening: No symptoms or risk factors identified. Fall Risk None rv identified. Assessment: 23:00 General: Appears uncomfortable, Behavior is calm, cooperative. rv 23:00 Pain: Complains of pain in chest, abdomen and pelvis Pain does not radiate. Pain rv currently is 8 out of 10 on a pain scale. Pain began. 03/11 01:40 Neuro: Level of Consciousness is awake, alert, obeys commands, Oriented to person, rv place, time, situation. Cardiovascular: Rhythm is sinus rhythm. Respiratory: Airway is patent Breath sounds are clear bilaterally. Derm: Skin is intact. 01:50 Reassessment: No changes from previously documented assessment. patient is still rv complaining of pain. vital signs stable. referred to Dr Cross. new orders received. 03:32 Reassessment: Patient states symptoms have improved. General: Appears comfortable, rv Behavior is calm, cooperative. Neuro: Level of Consciousness is awake, alert, obeys commands, Oriented to person, place, time, situation. Respiratory: Airway is patent. Vital Signs: 03/10 22:05 BP 152 / 95; Pulse 104; Resp 19; Temp 99.0; Pulse Ox 100% ; Pain 8/10; ll1 23:30 BP 140 / 60; Pulse 102; Resp 19; Pulse Ox 100% on R/A; rv 03/11 00:14 BP 141 / 74; Pulse 94; Resp 18; Pulse Ox 99% on R/A; mg2 00:30 BP 138 / 97; Pulse 91; Resp 17; Pulse Ox 96% on R/A; rv 01:00 BP 152 / 100; Pulse 90; Resp 18; Pulse Ox 100% on R/A; rv 02:02 BP 162 / 107; Pulse 86; Resp 19; Pulse Ox 100% on R/A; rv 02:33 BP 141 / 96; Pulse 88; Resp 18; Pulse Ox 100% on R/A; mg2 03:33 BP 138 / 86; Pulse 87; Resp 16; Temp 98.5; Pulse Ox 99% on R/A; rv ED Course: 03/10 21:58 Patient arrived in ED. cf2 22:07 Triage completed. ll1 22:08 Arm band placed on. ll1 22:54 Radu Cross MD is Attending Physician. tw4 22:56 Jak Charlton, ESTHELA is Primary Nurse. mg2 23:00 Patient has correct armband on for positive identification. quality assurance monitor body on. Pulse rv ox on. NIBP on. 23:18 Inserted saline lock: 18 gauge in right antecubital area, using aseptic technique. rv Blood collected. 23:18 Initial lab(s) drawn, by me, sent to lab. rv 23:56 XRAY Chest (1 view) In Process Unspecified. EDMS 03/11 00:14 IV discontinued, intact, bleeding controlled, No redness/swelling at site. Pressure mg2 dressing applied. 00:25 Inserted saline lock: 20 gauge in left antecubital area, using aseptic technique. rv 01:41 Inserted saline lock:. rv 01:41 Patient maintains SpO2 saturation greater than 95% on room air. rv 02:04 CT Chest For PE Angio In Process Unspecified. EDMS 02:04 Abdomen In Process Unspecified. EDMS 03:22 Luis Huddleston MD is Referral Physician. tw4 03:22 Shahriar Garcia MD is Referral Physician. tw4 03:22 Blair Soto MD is Referral Physician. tw4 03:22 Carson Quintana MD is Referral Physician. tw4 03:34 No provider procedures requiring assistance completed. rv Administered Medications: 03/10 23:40 Drug: fentaNYL (PF) 50 mcg Route: IVP; Site: right antecubital; rv 03/11 00:29 Follow up: Response: No adverse reaction; Pain is unchanged, physician notified; RASS: rv Alert and Calm (0) 00:29 Drug: fentaNYL (PF) 25 mcg Route: IVP; Site: left antecubital; rv 01:28 Follow up: Response: No adverse reaction; Pain is unchanged, physician notified; RASS: rv Alert and Calm (0) 02:03 Drug: fentaNYL (PF) 50 mcg {Note: rass 0.} Route: IVP; Site: left antecubital; rv 02:32 Follow up: Response: No adverse reaction; RASS: Alert and Calm (0) mg2 03:05 Drug: Dilaudid 0.5 mg Route: IVP; Site: left antecubital; rv 03:33 Follow up: Response: No adverse reaction; Marked relief of symptoms; Pain is decreased; rv RASS: Drowsy (-1) Outcome: 03:21 Discharge ordered by . tw4 03:34 Discharged to home ambulatory. rv 03:34 Condition: good 03:34 Discharge instructions given to patient, Instructed on discharge instructions, follow up and referral plans. medication usage, Demonstrated understanding of instructions, follow-up care, medications, Prescriptions given X 4. 03:34 Patient left the ED. rv Signatures: Dispatcher [employer] EDAZ Radu Cross MD MD tw4 Jak Charlton, RN RN mg2 Rom Laurent, RN RN rv Ximena Sabillon cf2 Yael Vallecillo RN RN ll1
--- NOTE | 2020-03-11 03:22 | EDPHYS ---
Physician Documentation [facility] Name: Pietro Maxwell Age: 45 yrs Sex: Male : 1975 Arrival Date: 03/10/2020 Time: 21:58 Bed 7 Private MD: ED Physician Radu Cross HPI: 03/11 05:35 This 45 yrs old Black Male presents to ER via Ambulatory with complaints of Testicular tw4 Pain, Chest Pain, Abdominal Pain. 05:35 The patient presents with abdominal pain. Onset: The symptoms/episode began/occurred tw4 yesterday. The symptoms do not radiate. Associated signs and symptoms: none. The symptoms are described as crampy, dull. Modifying factors: The symptoms are alleviated by. The patient has not experienced similar symptoms in the past. Historical: - Allergies: 03/10 22:08 Morphine; ll1 - PMHx: 22:08 bowel obstruction; Diverticulitis; Pancreatitis; ll1 - PSHx: 22:08 Appendectomy; Cholecystectomy; ll1 - Immunization history:: Flu vaccine is up to date. - Social history:: Smoking status: Patient denies any tobacco usage or history of. ROS: 03/11 05:35 Constitutional: Negative for fever, chills, and weight loss, Eyes: Negative for injury, tw4 pain, redness, and discharge, Cardiovascular: Negative for chest pain, palpitations, and edema, Respiratory: Negative for shortness of breath, cough, wheezing, and pleuritic chest pain, Back: Negative for injury and pain, MS/Extremity: Negative for injury and deformity, Skin: Negative for injury, rash, and discoloration. Neuro: Negative for headache, weakness, numbness, tingling, and seizure. Abdomen/GI: Positive for abdominal pain, Negative for nausea and vomiting, nausea, vomiting, and diarrhea, nausea, vomiting, diarrhea, constipation, abdominal cramps, abdominal distension, anorexia, dysphagia, hematemesis, black/tarry stool, rectal pain. Exam: 05:35 Constitutional: This is a well developed, well nourished patient who is awake, alert, tw4 and in no acute distress. Head/Face: Normocephalic, atraumatic. Chest/axilla: Normal chest wall appearance and motion. Nontender with no deformity. No lesions are appreciated. Cardiovascular: Regular rate and rhythm with a normal S1 and S2. No gallops, murmurs, or rubs. Normal PMI, no JVD. No pulse deficits. Respiratory: Lungs have equal breath sounds bilaterally, clear to auscultation and percussion. No rales, rhonchi or wheezes noted. No increased work of breathing, no retractions or nasal flaring. Back: No spinal tenderness. No costovertebral tenderness. Full range of motion. MS/ Extremity: Pulses equal, no cyanosis. Neurovascular intact. Full, normal range of motion. Neuro: Awake and alert, GCS 15, oriented to person, place, time, and situation. Cranial nerves II-XII grossly intact. Motor strength 5/5 in all extremities. Sensory grossly intact. Cerebellar exam normal. Normal gait. 05:35 Abdomen/GI: Inspection: abdomen appears normal. Vital Signs: 03/10 22:05 BP 152 / 95; Pulse 104; Resp 19; Temp 99.0; Pulse Ox 100% ; Pain 8/10; ll1 23:30 BP 140 / 60; Pulse 102; Resp 19; Pulse Ox 100% on R/A; rv 03/11 00:14 BP 141 / 74; Pulse 94; Resp 18; Pulse Ox 99% on R/A; mg2 00:30 BP 138 / 97; Pulse 91; Resp 17; Pulse Ox 96% on R/A; rv 01:00 BP 152 / 100; Pulse 90; Resp 18; Pulse Ox 100% on R/A; rv 02:02 BP 162 / 107; Pulse 86; Resp 19; Pulse Ox 100% on R/A; rv 02:33 BP 141 / 96; Pulse 88; Resp 18; Pulse Ox 100% on R/A; mg2 03:33 BP 138 / 86; Pulse 87; Resp 16; Temp 98.5; Pulse Ox 99% on R/A; rv MDM: 03/10 22:54 Patient medically screened. tw4 03/11 05:35 Differential diagnosis: Cholelithiasis, diverticulitis, Hepatitis, pancreatitis, Peptic tw4 Ulcer Disease, Perf. Duodenal Ulcer, Perf. Gastric Ulcer, Peritonitis. Data reviewed: vital signs, nurses notes. Data reviewed: lab test result(s), CBC, electrolytes, radiologic studies, CT scan. Data interpreted: Pulse oximetry: Interpretation: normal. Counseling: I had a detailed discussion with the patient and/or guardian regarding: the historical points, exam findings, and any diagnostic results supporting the discharge/admit diagnosis. Medication response: fentanyl and dilaudid. Response to treatment: the patient's symptoms have markedly improved after treatment, and as a result, I will discharge patient. Special discussion: Based on the patient's Hx, exam, and Dx evaluation, there is no indication for emergent surgery or inpatient Tx. It is understood by the patient/guardian that if the Sx's persist or worsen they need to return immediately for re-evaluation. I discussed with the patient/guardian in detail that at this point there is no indication for admission to the hospital. It is understood, however, that if the symptoms persist or worsen the patient needs to return immediately for re-evaluation. 03/10 22:54 Order name: Basic Metabolic Panel tw4 03/10 22:54 Order name: CBC with Diff tw4 03/10 22:54 Order name: LFT's tw4 03/10 22:54 Order name: Magnesium tw4 03/10 22:54 Order name: NT PRO-BNP; Complete Time: 01:30 tw4 03/10 22:54 Order name: PT-INR; Complete Time: 01: tw4 03/10 22:54 Order name: Troponin (emerg Dept Use Only); Complete Time: : tw4 03/10 22:55 Order name: Basic Metabolic Panel; Complete Time: 01:30 EDMS 03/10 22:55 Order name: CBC with Automated Diff; Complete Time: 01:30 EDMS 03/10 22:55 Order name: Liver (Hepatic) Function; Complete Time: 01:30 EDMS 03/10 22:55 Order name: Magnesium; Complete Time: :30 EDMS 03/10 23:48 Order name: Manual Differential; Complete Time: :30 EDMS 03/11 00:09 Order name: Urine Microscopic Only; Complete Time: :30 ar5 03/11 00:10 Order name: Urine Dipstick--Ancillary (enter results); Complete Time: 01:30 tt3 03/10 22:54 Order name: XRAY Chest (1 view) tw4 03/10 22:54 Order name: EKG; Complete Time: 22:55 tw4 03/10 22:54 Order name: Cardiac monitoring; Complete Time: 23:29 tw4 03/10 22:54 Order name: EKG - Nurse/Tech; Complete Time: 23:45 tw4 03/10 22:54 Order name: IV Saline Lock; Complete Time: 23:28 tw4 03/10 22:54 Order name: Labs collected and sent; Complete Time: 23:28 tw4 03/10 22:54 Order name: O2 Per Protocol; Complete Time: 23:28 tw4 03/10 22:54 Order name: O2 Sat Monitoring; Complete Time: 23:28 tw4 03/11 01:23 Order name: CT Chest For PE Angio tw4 03/11 01:36 Order name: Abdomen EDMS Administered Medications: 03/10 23:40 Drug: fentaNYL (PF) 50 mcg Route: IVP; Site: right antecubital; rv 03/11 00:29 Follow up: Response: No adverse reaction; Pain is unchanged, physician notified; RASS: rv Alert and Calm (0) 00:29 Drug: fentaNYL (PF) 25 mcg Route: IVP; Site: left antecubital; rv 01:28 Follow up: Response: No adverse reaction; Pain is unchanged, physician notified; RASS: rv Alert and Calm (0) 02:03 Drug: fentaNYL (PF) 50 mcg {Note: rass 0.} Route: IVP; Site: left antecubital; rv 02:32 Follow up: Response: No adverse reaction; RASS: Alert and Calm (0) mg2 03:05 Drug: Dilaudid 0.5 mg Route: IVP; Site: left antecubital; rv 03:33 Follow up: Response: No adverse reaction; Marked relief of symptoms; Pain is decreased; rv RASS: Drowsy (-1) Disposition: 03/11/20 03:21 Discharged to Home. 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 - Condition is Stable. - Discharge Instructions: Diverticulitis, Smyo-xg-Seit. - Prescriptions for Bentyl 20 mg Oral Tablet - take 1 tablet by ORAL route every 6 hours As needed; 20 tablet. Cipro 500 mg Oral Tablet - take 1 tablet by ORAL route every 12 hours for 10 days; 20 tablet. Flagyl 500 mg Oral Tablet - take 1 tablet by ORAL route every 12 hours for 7 days; 14 tablet. Tylenol- Codeine #3 300-30 mg Oral Tablet - take 2 tablet by ORAL route every 6 hours As needed; 6 tablet. Tramadol 50 mg Oral Tablet - take 1 tablet by ORAL route every 8 hours as needed; 12 tablet. - Medication Reconciliation Form, Thank You Letter, Antibiotic Education, Prescription Opioid Use form. - Follow up: Private Physician; When: Upon discharge from the Emergency Department; Reason: Recheck today's complaints, Continuance of care, Re-evaluation by your physician. Follow up: Luis Huddleston MD; When: Upon discharge from the Emergency Department; Reason: Recheck today's complaints, Continuance of care, Re-evaluation by your physician. Follow up: Shahriar Garcia MD; When: Upon discharge from the Emergency Department; Reason: Recheck today's complaints, Continuance of care, Re-evaluation by your physician. Follow up: Blair Soto MD; When: Upon discharge from the Emergency Department; Reason: Recheck today's complaints, Continuance of care, Re-evaluation by your physician. Follow up: Carson Quintana MD; When: Upon discharge from the Emergency Department; Reason: Recheck today's complaints, Continuance of care, Re-evaluation by your physician. - Problem is new. - Symptoms have improved. Signatures: Dispatcher [employer] EDND Radu Cross MD MD tw4 Rom Laurent RN RN rv Yael Vallecillo RN RN ll1 Jak Charlton RN mg2 Corrections: (The following items were deleted from the chart) 01:24 00:03 Abdomen Pelvis W Con+CT.RAD.BRZ ordered. [facility] 01:36 01:24 Chest Abdomen Pelvis W Cont ordered. [facility] 03:22 03:21 03/11/2020 03:21 Discharged to Home. Impression: Diverticular disease of large tw4 intestine without perforation or abscess. Condition is Stable. Forms are Medication Reconciliation Form, Thank You Letter, Antibiotic Education, Prescription Opioid Use. Follow up: Private Physician; When: Upon discharge from the Emergency Department; Reason: Recheck today's complaints, Continuance of care, Re-evaluation by your physician. Problem is new. Symptoms have improved. tw4 03:34 03:22 03/11/2020 03:21 Discharged to Home. Impression: Diverticular disease of large rv intestine without perforation or abscess. Condition is Stable. Discharge Instructions: Diverticulitis, [id number]. Prescriptions for Bentyl 20 mg Oral Tablet - take 1 tablet by ORAL route every 6 hours As needed; 20 tablet, Cipro 500 mg Oral Tablet - take 1 tablet by ORAL route every 12 hours for 10 days; 20 tablet, Flagyl 500 mg Oral Tablet - take 1 tablet by ORAL route every 12 hours for 7 days; 14 tablet, Tylenol-Codeine #3 300-30 mg Oral Tablet - take 2 tablet by ORAL route every 6 hours As needed; 6 tablet, Tramadol 50 mg Oral Tablet - take 1 tablet by ORAL route every 8 hours as needed; 12 tablet. and Forms are Medication Reconciliation Form, Thank You Letter, Antibiotic Education, Prescription Opioid Use. Follow up: Private Physician; When: Upon discharge from the Emergency Department; Reason: Recheck today's complaints, Continuance of care, Re-evaluation by your physician. Follow up: Luis Huddleston; When: Upon discharge from the Emergency Department; Reason: Recheck today's complaints, Continuance of care, Re-evaluation by your physician. Follow up: Shahriar Garcia; When: Upon discharge from the Emergency Department; Reason: Recheck today's complaints, Continuance of care, Re-evaluation by your physician. Follow up: Blair Soto; When: Upon discharge from the Emergency Department; Reason: Recheck today's complaints, Continuance of care, Re-evaluation by your physician. Follow up: Carson Quintana; When: Upon discharge from the Emergency Department; Reason: Recheck today's complaints, Continuance of care, Re-evaluation by your physician. Problem is new. Symptoms have improved. tw4
[2020-03-11 03:52] VITALS: BP 138/86; TEMP 98.5; O2SAT 99
--- NOTE | 2020-03-11 07:02 | RAD REPORT ---
EXAM DESCRIPTION: RAD - Chest Single View - 03/10/2020 11:56 pm CLINICAL HISTORY: CHEST PAIN COMPARISON: Portable January 2017 TECHNIQUE: AP portable chest image was obtained 03/10/2020 11:56 pm . FINDINGS: Lung volumes are low compared to the prior study. No peripheral mass consolidation. No musa ar change to the interstitial pattern. Heart and vasculature are normal. No measurable pleural effusi on and no pneumothorax. No acute bony abnormality seen. No acute aortic findings suspected. IMPRESSION: No acute cardiopulmonary process. No significant interval change identified.
--- NOTE | 2020-03-11 11:34 | RAD REPORT ---
EXAM DESCRIPTION: CT - Abdomen Pelvis W Contrast - 03/11/2020 5:46 am CLINICAL HISTORY: Chest pain TECHNIQUE: Contiguous axial images obtained through the chest during angiographic phase following th e uneventful administration of IV contrast. Sagittal and coronal reformatted images were provided. [place] P reformatted images were provided. This exam was performed according to our departmental dose-optimization program, which includes autom ated exposure control, adjustment of the mA and/or kV according to patient size and/or use of iterati ve reconstruction technique. COMPARISON: No prior exams provided for comparison. FINDINGS: Diagnostic quality: There is good opacification of the pulmonary arterial tree. Motion art ifact degrades image quality and limits evaluation of segmental and subsegmental vessels. Lungs: No focal consolidation. Airways are patent. Pleura: No effusion. No pneumothorax. Heart and pericardium: The heart is normal in size. No pericardial effusion. Mediastinum and bryan: No pathologically enlarged lymph nodes. Lower neck and chest wall: Unremarkable Vessels: No pulmonary arterial filling defects. No thoracic aortic aneurysm. Bones: Mild multilevel spondylosis. No acute fracture. IMPRESSION: 1. Motion artifact degrades image quality and limits evaluation of segmental and subse gmental vessels. No central pulmonary embolic disease. 2. Other findings as above. EXAM DESCRIPTION: CT ABDOMEN PELVIS WITH IV CONTRAST (accession [id number]) CLINICAL HISTORY: Abdominal pain TECHNIQUE: Contiguous axial images obtained through the abdomen and pelvis following the uneventful administration of IV contrast. Coronal and sagittal reformatted images were provided. This exam was performed according to our departmental dose-optimization program, which includes autom ated exposure control, adjustment of the mA and/or kV according to patient size and/or use of iterati ve reconstruction technique. COMPARISON: None available for comparison. FINDINGS: Liver: Unremarkable Gallbladder and biliary system: Prior cholecystectomy. Pancreas: Unremarkable Spleen: Unremarkable Adrenals: Unremarkable Kidneys: Normal renal cortical enhancement. 4.5 cm cystic lesion with peripheral calcification at the medial mid pole on the left. The density is higher than that of a simple cyst. No calculi. No hydron ephrosis. Bowel: No obstruction. Colonic diverticula are present. Focally inflamed diverticulum at the mid sigm oid colon with mild surrounding inflammation. Appendix: The appendix is not definitively visualized. No findings to suggest acute appendicitis. Urinary bladder: Unremarkable Reproductive: Unremarkable as visualized Lymph nodes: No pathologically enlarged lymph nodes. Peritoneum: No focal fluid collection. No free air. Vessels: No abdominal aortic aneurysm. Abdominal wall: Small fat-containing umbilical hernia. Bones: Multilevel spondylosis. No acute fracture. IMPRESSION: 1. Findings compatible with acute diverticulitis at the mid sigmoid colon. Mild surrou nding inflammation. No extraluminal gas or discrete fluid collection. 2. Indeterminate 4.5 cm left renal cyst. Follow-up is recommended. 3. Other findings as above. Electronically signed by: Nikole Pinto MD 03/11/2020 2:25 AM CDT Due to temporary technical issues with the PACS/Fluency reporting system, reports are being signed by the in house radiologist without review as a courtesy to ensure prompt reporting. The interpreting r adiologist is fully responsible for the content of the report.
--- NOTE | 2020-03-11 11:37 | RAD REPORT ---
EXAM DESCRIPTION: CT - Chest For Pe Angio - 03/11/2020 5:46 am CLINICAL HISTORY: Chest pain TECHNIQUE: Contiguous axial images obtained through the chest during angiographic phase following th e uneventful administration of IV contrast. Sagittal and coronal reformatted images were provided. ID P reformatted images were provided. This exam was performed according to our departmental dose-optimization program, which includes autom ated exposure control, adjustment of the mA and/or kV according to patient size and/or use of iterati ve reconstruction technique. COMPARISON: No prior exams provided for comparison. FINDINGS: Diagnostic quality: There is good opacification of the pulmonary arterial tree. Motion art ifact degrades image quality and limits evaluation of segmental and subsegmental vessels. Lungs: No focal consolidation. Airways are patent. Pleura: No effusion. No pneumothorax. Heart and pericardium: The heart is normal in size. No pericardial effusion. Mediastinum and bryan: No pathologically enlarged lymph nodes. Lower neck and chest wall: Unremarkable Vessels: No pulmonary arterial filling defects. No thoracic aortic aneurysm. Bones: Mild multilevel spondylosis. No acute fracture. IMPRESSION: 1. Motion artifact degrades image quality and limits evaluation of segmental and subse gmental vessels. No central pulmonary embolic disease. 2. Other findings as above. EXAM DESCRIPTION: CT ABDOMEN PELVIS WITH IV CONTRAST (accession [id number]) CLINICAL HISTORY: Abdominal pain TECHNIQUE: Contiguous axial images obtained through the abdomen and pelvis following the uneventful administration of IV contrast. Coronal and sagittal reformatted images were provided. This exam was performed according to our departmental dose-optimization program, which includes autom ated exposure control, adjustment of the mA and/or kV according to patient size and/or use of iterati ve reconstruction technique. COMPARISON: None available for comparison. FINDINGS: Liver: Unremarkable Gallbladder and biliary system: Prior cholecystectomy. Pancreas: Unremarkable Spleen: Unremarkable Adrenals: Unremarkable Kidneys: Normal renal cortical enhancement. 4.5 cm cystic lesion with peripheral calcification at the medial mid pole on the left. The density is higher than that of a simple cyst. No calculi. No hydron ephrosis. Bowel: No obstruction. Colonic diverticula are present. Focally inflamed diverticulum at the mid sigm oid colon with mild surrounding inflammation. Appendix: The appendix is not definitively visualized. No findings to suggest acute appendicitis. Urinary bladder: Unremarkable Reproductive: Unremarkable as visualized Lymph nodes: No pathologically enlarged lymph nodes. Peritoneum: No focal fluid collection. No free air. Vessels: No abdominal aortic aneurysm. Abdominal wall: Small fat-containing umbilical hernia. Bones: Multilevel spondylosis. No acute fracture. IMPRESSION: 1. Findings compatible with acute diverticulitis at the mid sigmoid colon. Mild surrou nding inflammation. No extraluminal gas or discrete fluid collection. 2. Indeterminate 4.5 cm left renal cyst. Follow-up is recommended. 3. Other findings as above. Electronically signed by: Nikole Pinto MD 03/11/2020 2:25 AM CDT Due to temporary technical issues with the PACS/Fluency reporting system, reports are being signed by the in house radiologist without review as a courtesy to ensure prompt reporting. The interpreting r adiologist is fully responsible for the content of the report.
--- NOTE | 2020-03-11 12:17 | EKG ---
Test Date: 2020-03-10 Test Time: 22:13:59 Mailing Jogger: GROVER MEASUREMENT RESULTS: Intervals: Rate: 103 HI: 190 QRSD: 100 QT: 330 QTc: 432 [place]: P: 57 HI: 190 QRS: 3 T: 31 INTERPRETIVE STATEMENTS: Sinus tachycardia Minimal voltage criteria for LVH, may be normal variant Inferior infarct, age undetermined Abnormal ECG Compared to ECG 01/23/2017 12:31:27 Left ventricular hypertrophy now present Myocardial infarct finding now present Sinus rhythm no longer present Electronically Signed On 03-11-20 12:15:05 CDT by Adryan Dowling
== END 2020-03-11 03:34 | disposition home or self-care (01) ==
LOC: ER 21:54
DX: K57.30 Diverticulosis of large intestine without perforation or abscess without bleeding (principal); Z88.5 Allergy status to narcotic agent
CPT/HCPCS: 93005; 85025; 80048; 36415; 83735; 85610; 80076; 84484; 83880; 71275; 74177; 71045; Q9967; J3010 ×2; J1170; 81003; 81015; 99285

== ENCOUNTER 2020-09-22 08:06 | Emergency (ER) | payer BC ==
--- OUTSIDE RECORDS SUMMARY | 2020-09-22 08:10 | XMS REPORT | Continuity of Care Document ---
:1975 Author Organization [facility] t Address [address] [place] [address] Care Team Providers Name Role Phone Aftab Pérez DO Attending Clinician Steven CARLSON Attending Clinician Chavez PROCTOR, L Attending Clinician Unavailable Unknown Attending Clinician Unavailable Iesha Mejia DO Attending Clinician Rajan CARLSON Attending Clinician Stephanie CARLSON J Attending Clinician Nilay CARLSON, S Attending Clinician Ambrocio SONI Attending Clinician Provider, Urgent Care Attending Clinician Unavailable Sweet PT Attending Clinician Unavailable Rajan CARLSON Admitting Clinician Problems This patient has no known problems. Allergies, Adverse Reactions, Alerts This patient has no known allergies or adverse reactions. Medications This patient has no known medications. Procedures This patient has no known procedures. Encounters Start End Encounter Admission Attending Care Care Encounter Source Date/Time Date/Time Type Type Clinicians Facility Department ID 2020-09-04 2020-09-04 Patient Beto [facility] [id number] 00:00:00 00:00:00 [facility] [id number] Aftab [facility] [id number] DEBORAH [phone] [facility] 2020-08-12 2020-08-12 [facility] [id number] 08:06:47 17:17:08 ne Visit Shalom Aguilera [id number] [place] [id number] Professio [phone] [address] 2020-07-29 2020-07-29 [facility] [id number] 07:49:33 12:13:22 ne Visit Shalom Aguilera [id number] [place] [id number] Professio [phone] [address] 2020-06-11 2020-06-11 Transition Jazmyn Byrne [id number] 00:00:00 00:00:00 of Care Patricia [place] [id number] [place] [id number] [id number] 2020-06-07 2020-06-10 Hospital Unknown, Attending Macey 1.2.84 [id number] 10:22:00 15:00:00 Encounter Nayan Sylvester 35 [id number] [facility] [id number] [place] [id number] [id number] 2020-06-07 2020-06-07 Emergency [facility] [id number] 06:17:00 09:35:00 Greg Aguilera [id number] [place] [id number] [place] [id number] 2020-06-02 2020-06-02 [facility] [id number] 16:14:00 19:33:00 Briana Willy [id number] [place] [id number] [place] [id number] 2020-06-02 2020-06-02 Urgent [facility], [facility] [id number] 15:11:00 15:31:00 [facility] [id number] Care Willy [id number] Profess[place] [phone] [place] [address] 2020-04-25 2020-04-25 [facility] [id number] 07:42:03 15:40:30 ne Visit Shalom Aguilera [id number] [place] [id number] Professio [phone] [place] [address] Building 2020-02-09 2020-02-09 Refill [facility] [id number] 00:00:00 00:00:00 Shalom Aguilera [id number] [place] [id number] [facility] [phone] [place] [address] Building 2020-01-25 2020-01-25 [facility] [id number] 00:00:00 00:00:00 Management Dianacrys Aguilera [id number] [place] [id number] Professio [phone] [facility] [address] 2020-01-18 2020-01-18 Office [facility] [id number] 08:20:50 09:27:31 Visit Shalom Aguilera [id number] [place] [id number] [facility] [phone] [address] Results This patient has no known results.
[2020-09-22] MEDS ORDERED: dexAMETHasone 10 MG/ML VIAL ONE (09:04)
[2020-09-22] MEDS ORDERED: DIPHENHYDRAMINE 50 MG/ML VIAL ONE (09:04)
[2020-09-22] MEDS ORDERED: FAMOTIDINE 20 MG/2 ML VIAL IV ONE (09:05)
[2020-09-22] MEDS ORDERED: hydrOXYzine HCL 25 MG TAB ONE (10:56)
[2020-09-22] MEDS ORDERED: METHYLPREDNISOLONE 125 MG INJ ONE (13:58)
--- NOTE | 2020-09-22 14:21 | EDPHYS ---
Physician Documentation [facility] Name: Pietro Maxwell Age: 45 yrs Sex: Male : 1975 Arrival Date: 09/22/2020 Time: 08:07 Bed 14 Private MD: ED Physician Jameel Castro HPI: 09/22 08:45 This 45 yrs old Black Male presents to ER via Ambulatory with complaints of Itchy rn Throat, possible allergic reaction. 08:45 The patient presents with itching, localized swelling, rash. Onset: The rn symptoms/episode began/occurred yesterday. Possible causes: hair dye. At home the patient or guardian has treated the symptoms with nothing. Severity of symptoms: At their worst the symptoms were moderate in the emergency department the symptoms are unchanged. The patient has not experienced similar symptoms in the past. Reports used hair dye Tuesday, that night began with "bumps in head", and itching, yesterday progressed to headache and swelling of face, reports worse this morning. No sob. No tongue swelling. Able to swallow. No fever, does not feel sick or ill. . Historical: - Allergies: 08:24 Morphine; iw - Home Meds: 08:24 None [Active]; iw - PMHx: 08:24 bowel obstruction; Diverticulitis; Pancreatitis; iw - PSHx: 08:24 Appendectomy; Cholecystectomy; iw - Immunization history:: Adult Immunizations not up to date. - Social history:: Smoking status: Patient reports the use of cigarette tobacco products, denies chronic smoking, but will smoke occasionally. - Family history:: not pertinent. - Hospitalizations: : No recent hospitalization is reported. ROS: 08:45 Constitutional: Negative for fever, chills, and weight loss, Eyes: Negative for injury, rn pain, redness, and discharge, Neck: Negative for injury, pain, and swelling, Cardiovascular: Negative for chest pain, palpitations, and edema, Respiratory: Negative for shortness of breath, cough, wheezing, and pleuritic chest pain, Abdomen/GI: Negative for abdominal pain, nausea, vomiting, diarrhea, and constipation, Back: Negative for injury and pain, MS/Extremity: Negative for injury and deformity, Skin: + rash and itching Neuro: + headache Exam: 08:45 Constitutional: This is a well developed, well nourished patient who is awake, alert, rn and in no acute distress. Head/Face: atraumatic. Eyes: Pupils equal round and reactive to light, extra-ocular motions intact. Mild periorbital swelling ENT: No tongue swelling, no intraoral lesions. No stridor. Handling secretions. + mild swelling bitemporal regions/along mandible on both sides. No signs of warmth or abscess. Neck: Trachea midline, no masses palpated Cardiovascular: Regular rate and rhythm. No pulse deficits. Respiratory: No increased work of breathing, no retractions or nasal flaring. Skin: Warm, dry, no diffuse urticaria, + a few bumps along anterior hair line. MS/ Extremity: Pulses equal, no cyanosis. Neurovascular intact. Full, normal range of motion. Equal circumference. Neuro: Awake and alert, GCS 15, oriented to person, place, time, and situation. Cranial nerves II-XII grossly intact. Motor strength 5/5 in all extremities. Sensory grossly intact. Cerebellar exam normal. Normal gait. 11:52 ECG was reviewed by the Attending Physician. rn Vital Signs: 08:22 BP 158 / 103; Pulse 91; Resp 16; Temp 98.3; Pulse Ox 100% on R/A; Weight 128.37 kg; iw Height 6 ft. 0 in. (182.88 cm); 09:04 BP 158 / 103; Pulse 98; Resp 18; Temp 98.9(TE); Pulse Ox 96% ; ss 09:09 Pulse 79; Resp 20; Pulse Ox 95% on R/A; sr5 10:31 BP 121 / 86; Pulse 84; Resp 22; Pulse Ox 95% ; sv 11:30 BP 121 / 75; Pulse 68; Resp 20; Pulse Ox 96% ; sv 12:30 BP 131 / 90; Pulse 68; Resp 19; Pulse Ox 96% ; sv 13:00 BP 127 / 84; Pulse 78; Resp 21; Pulse Ox 96% ; sv 14:11 BP 138 / 89; Pulse 84; Resp 19; Pulse Ox 98% ; sv 08:22 Body Mass Index 38.38 (128.37 kg, 182.88 cm) iw MDM: 08:15 Patient medically screened. rn 14:18 Differential diagnosis: acute allergic reaction to hair dye. Data reviewed: vital rn signs, nurses notes, and as a result, I will discharge patient. Counseling: I had a detailed discussion with the patient and/or guardian regarding: the historical points, exam findings, and any diagnostic results supporting the discharge/admit diagnosis, the need for outpatient follow up, to return to the emergency department if symptoms worsen or persist or if there are any questions or concerns that arise at home. Response to treatment: the patient's symptoms have mildly improved after treatment, and as a result, I will discharge patient. Special discussion: I discussed with the patient/guardian in detail that at this point there is no indication for admission to the hospital. It is understood, however, that if the symptoms persist or worsen the patient needs to return immediately for re-evaluation. ED course: Pt slightly improved, no airway compromise, able to swallow, + edema of face and head, will dc home with steroids with strict return precautions.. 09/22 09:06 Order name: EKG; Complete Time: 09:07 rn 09/22 08:21 Order name: IV Start; Complete Time: 08:54 rn 09/22 09:06 Order name: EKG - Nurse/Tech; Complete Time: 09:30 rn EC:52 Rate is 73 beats/min. Rhythm is regular. QRS [place] is Normal. [place] interval is prolonged rn at 212 msec. QRS interval is normal. QT interval is normal. No Q waves. T waves are Normal. No ST changes noted. Clinical impression: NSR w/ Non-specific ST/T Changes and 1st degree heart block. Interpreted by me. Reviewed by me. Administered Medications: 08:58 Drug: Benadryl (diphenhydrAMINE) 50 mg Route: IVP; Site: right hand; sr5 10:41 Follow up: Response: No adverse reaction sv 08:59 Drug: Decadron - Dexamethasone 10 mg Route: IVP; Site: right hand; sr5 10:41 Follow up: Response: No adverse reaction sv 09:03 Drug: Pepcid (famotidine) 20 mg Route: IVP; Site: right hand; sr5 10:41 Follow up: Response: No adverse reaction sv 10:41 Drug: hydrOXYzine 50 mg Route: PO; sv 11:00 Follow up: Response: No adverse reaction sv 13:45 Drug: SOLU-Medrol 125 mg Route: IVP; Site: left hand; sv Disposition: 09/22/20 14:20 Discharged to Home. Impression: Acute allergic reaction. - Condition is Stable. - Discharge Instructions: Angioedema. - Prescriptions for Hydroxyzine HCl 50 mg Oral Tablet - take 1 tablet by ORAL route every 8 hours As needed; 20 tablet. Prednisone 20 mg Oral Tablet - take 3 tablet by ORAL route once daily for 5 days; 15 tablet. EpiPen 0.3 mg Injection auto- injector - inject 1 pen by INTRAMUSCULAR route one time As needed Inject into the outer portion of the thigh, through clothing if necessary. Indicated in the emergency treatment of allergic reactions; 1 packet. - Work release form, Medication Reconciliation Form, Thank You Letter, Antibiotic Education, Prescription Opioid Use form. - Follow up: Private Physician; When: As needed; Reason: Recheck today's complaints, Re-evaluation by your physician. - Problem is new. - Symptoms have improved. Signatures: Chanda Moy RN Yohana Álvarez RN RN iw Nieto, Roman, MD MD rn Resecker, Manny RN RN sr5 Corrections: (The following items were deleted from the chart) 14:37 14:20 09/22/2020 14:20 Discharged to Home. Impression: Acute allergic reaction. sv Condition is Stable. Forms are Medication Reconciliation Form, Thank You Letter, Antibiotic Education, Prescription Opioid Use. Follow up: Private Physician; When: As needed; Reason: Recheck today's complaints, Re-evaluation by your physician. Problem is new. Symptoms have improved. rn
--- NOTE | 2020-09-22 14:21 | ER ---
Nurse's Notes [facility] Name: Pietro Maxwell Age: 45 yrs Sex: Male : 1975 Arrival Date: 09/22/2020 Time: 08:07 Bed 14 Private MD: Diagnosis: Acute allergic reaction Presentation: 09/22 08:22 Chief complaint: Patient states: dyed his hair on Tuesday and thinks he is having a iw reaction to it, is having swelling to his head, left side of face and neck. Coronavirus screen: At this time, the client does not indicate any symptoms associated with coronavirus-19. Ebola Screen: Patient negative for fever greater than or equal to 101.5 degrees Fahrenheit, and additional compatible Ebola Virus Disease symptoms Patient denies exposure to infectious person. Patient denies travel to an Ebola-affected area in the 21 days before illness onset. No symptoms or risks identified at this time. Initial Sepsis Screen: Does the patient meet any 2 criteria? No. Patient's initial sepsis screen is negative. Does the patient have a suspected source of infection? No. Patient's initial sepsis screen is negative. Risk Assessment: Do you want to hurt yourself or someone else? Patient reports no desire to harm self or others. Onset of symptoms was September 20, 2020. 08:22 Method Of Arrival: Ambulatory iw 08:22 Acuity: ELSA 3 iw Historical: - Allergies: 08:24 Morphine; iw - Home Meds: 08:24 None [Active]; iw - PMHx: 08:24 bowel obstruction; Diverticulitis; Pancreatitis; iw - PSHx: 08:24 Appendectomy; Cholecystectomy; iw - Immunization history:: Adult Immunizations not up to date. - Social history:: Smoking status: Patient reports the use of cigarette tobacco products, denies chronic smoking, but will smoke occasionally. - Family history:: not pertinent. - Hospitalizations: : No recent hospitalization is reported. Screenin:05 Abuse screen: Denies threats or abuse. Denies injuries from another. Nutritional ss screening: No deficits noted. Tuberculosis screening: Never had TB. Fall Risk None identified. Assessment: 08:30 General: Appears uncomfortable, Behavior is cooperative, anxious, Denies fever, feeling ss ill, fatigue, chills. General: PT reports that symptoms began Tuesday after dying his hair, but when he woke up this morning, was much worse. Pain: Complains of pain in headache Pain currently is 8 out of 10 on a pain scale. Quality of pain is described as aching, Is continuous. Neuro: Level of Consciousness is awake, alert, obeys commands, Oriented to person, place, time, situation, Moves all extremities. Speech is normal. Respiratory: Airway is patent Respiratory effort is even, unlabored, Respiratory pattern is regular, symmetrical. GI: Patient currently denies diarrhea, nausea, vomiting. EENT: Nares are clear Oral mucosa is moist. Derm: Skin is intact, is healthy with good turgor, Skin is moist, Skin is pink, warm \T\ dry. normal. Derm: Rash noted that is itchy, on scalp. Musculoskeletal: Circulation, motion, and sensation intact. Range of motion: intact in all extremities, Swelling present in scalp, back of head, anterior throat area. 09:09 Reassessment: During medical secretary receptionist pt c/o sharp chest pain. Pt put on telemetry and MD bonds notified, Order for 12-Lead EKG received. 10:40 Reassessment: PT asking for more Benadryl for head itching. Informed Dr Castro, medication order received. 11:00 Reassessment: Patient appears in no apparent distress at this time. No changes from previously documented assessment. Patient and/or family updated on plan of care and expected duration. Pain level reassessed. Patient is alert, oriented x 3, equal unlabored respirations, skin warm/dry/pink. Vital Signs: 08:22 BP 158 / 103; Pulse 91; Resp 16; Temp 98.3; Pulse Ox 100% on R/A; Weight 128.37 kg; iw Height 6 ft. 0 in. (182.88 cm); 09:04 BP 158 / 103; Pulse 98; Resp 18; Temp 98.9(TE); Pulse Ox 96% ; ss 09:09 Pulse 79; Resp 20; Pulse Ox 95% on R/A; sr5 10:31 BP 121 / 86; Pulse 84; Resp 22; Pulse Ox 95% ; sv 11:30 BP 121 / 75; Pulse 68; Resp 20; Pulse Ox 96% ; sv 12:30 BP 131 / 90; Pulse 68; Resp 19; Pulse Ox 96% ; sv 13:00 BP 127 / 84; Pulse 78; Resp 21; Pulse Ox 96% ; sv 14:11 BP 138 / 89; Pulse 84; Resp 19; Pulse Ox 98% ; sv 08:22 Body Mass Index 38.38 (128.37 kg, 182.88 cm) ED Course: 08:07 Patient arrived in ED. ds1 08:15 Jameel Castro MD is Attending Physician. rn 08:23 Shelley Velasquez RN is Primary Nurse. ss 08:24 Triage completed. iw 08:25 Arm band placed on. iw 08:54 Inserted saline lock: 24 gauge in right hand, using aseptic technique. ss 09:05 Patient has correct armband on for positive identification. Bed in low position. Call ss light in reach. Side rails up X 1. intelligence manager on. Pulse ox on. NIBP on. Warm blanket given. 09:59 Primary Nurse role handed off by Shelley Velasquez RN sv 09:59 Chanda Moy RN is Primary Nurse. sv 10:00 Report received from Shelley PROCTOR. sv Administered Medications: 08:58 Drug: Benadryl (diphenhydrAMINE) 50 mg Route: IVP; Site: right hand; sr5 10:41 Follow up: Response: No adverse reaction sv 08:59 Drug: Decadron - Dexamethasone 10 mg Route: IVP; Site: right hand; sr5 10:41 Follow up: Response: No adverse reaction sv 09:03 Drug: Pepcid (famotidine) 20 mg Route: IVP; Site: right hand; sr5 10:41 Follow up: Response: No adverse reaction sv 10:41 Drug: hydrOXYzine 50 mg Route: PO; sv 11:00 Follow up: Response: No adverse reaction sv 13:45 Drug: SOLU-Medrol 125 mg Route: IVP; Site: left hand; sv Outcome: 14:20 Discharge ordered by . rn 14:37 Patient left the ED. sv Signatures: Chanda Moy RN RN Indira Oliveira ds1 Yohana Dudley RN RN Jameel Castro MD MD rn Smirch, Shelby, RN RN Manny Barbour, RN RN sr5
== END 2020-09-22 14:37 | disposition home or self-care (01) ==
LOC: ER 08:06
DX: T78.40XA Allergy, unspecified, initial encounter (principal); F17.210 Nicotine dependence, cigarettes, uncomplicated
CPT/HCPCS: 93005; J1200; J1100; J2930; 99284

== ENCOUNTER 2024-02-15 21:52 | Inpatient (IN) | payer BC ==
--- NOTE | 2024-02-15 22:32 | RAD REPORT ---
EXAM DESCRIPTION: RAD - Chest Single View - 02/15/2024 10:24 pm CLINICAL HISTORY: CHEST PAIN Chest pain. COMPARISON: Chest Single View dated 03/10/2020; Chest Single View dated 01/23/2017 FINDINGS: Portable technique limits examination quality. The lungs are grossly clear. The heart is normal in size. No displaced fractures. IMPRESSION: No acute intrathoracic process suspected.
[2024-02-15 23:10] LABS: PT Prothrombin Time 12.4 SECONDS (9.4-12.5); Protime INR 1.11
[2024-02-15 23:19] LABS: ALT/SGPT 36 U/L (16-61); AST/SGOT 19 U/L (15-37); Albumin 3.7 g/dL (3.4-5.0); Albumin/Globulin Ratio 0.8 (1.1-1.8); Alkaline Phosphatase 99 U/L (45-117); Anion Gap 7.6 mEq/L (5.0-15.0); BUN Blood Urea Nitrogen 13 mg/dL (7-18); Bicarbonate 26 mEq/L (21-32); Bilirubin Total 0.7 mg/dL (0.2-1.0); Globulin 4.5 g/dL (2.3-3.5); Glomerular Filtration Rate 85 ml/min (=/>90); Glucose Level 158 mg/dL (74-106); Lipase 11 U/L (13-75); Magnesium 2.2 mg/dL (1.6-2.4); NT PRO-BNP 7 pg/mL (<125); Potassium 3.6 mEq/L (3.5-5.1); Protein, Total 8.2 g/dL (6.4-8.2); Sodium Level 137 mEq/L (136-145); Troponin High Sensitivity 6.3 pg/mL (<58.9)
[2024-02-15 23:24] LABS: Absolute Eosinophils 0.1 K/uL (0-0.5); Absolute Lymphocytes (CBC) 2.7 K/uL (0.7-4.9); Absolute Monocytes 0.5 K/uL (0.1-1.3); Absolute Neutrophil 2.3 K/uL (1.8-8.0); Basophils % 0.7 % (0-1.3); Eosinophils % 1.7 % (0-4.4); Hematocrit 42.4 % (39.6-49.0); MCH 28.1 pg (27.0-35.0); MCHC 33.1 g/dL (32.0-36.0); MCV 84.9 fL (80-100); MPV 8.2 fL (7.6-11.3); Monocytes % 8.7 % (3.3-12.3); Neutrophils % 40.9 % (41.7-73.7); Nucleated Red Blood Cells % 0.5 % (0-0); Platelets 258 thou/uL (152-406); Red Cell Distribution Width 13.2 % (12.1-15.2)
[2024-02-15 23:25] LABS: Bilirubin Direct < 0.2 mg/dL (0-0.2); Bilirubin Indirect, Calculated 0.5 mg/dL (0.2-0.8)
[2024-02-15] MEDS ORDERED: ONDANSETRON 4 MG/2 ML VIAL ONE (23:33)
[2024-02-15] MEDS ORDERED: ASPIRIN 81 MG CHEWABLE TABLET ONE (23:34)
[2024-02-15] MEDS ORDERED: FENTANYL CITR 100 MCG/2 ML ONE (23:34)
[2024-02-15] MEDS ORDERED: NA CHLORIDE 0.9% 2,000 ML ONE (23:35)
[2024-02-15] MEDS ORDERED: FAMOTIDINE 20 MG/2 ML VIAL IV ONE (23:35)
[2024-02-15 23:50] LABS: Specific Gravity 1.027 (1.005-1.030); Sqamous Epithelial <5 /HPF (None Seen); Urine Bacteria None Seen /HPF (<20); Urine Bilirubin NEGATIVE (Negative); Urine Blood Negative (Negative); Urine Clarity Clear (Clear); Urine Color Yellow (Yellow); Urine Culture Reflex Order NOT NEEDED; Urine Glucose NEGATIVE (Negative); Urine Ketones NEGATIVE (Negative); Urine Microscopic Reflex YN ORDER UMIC; Urine Mucus 1+ /HPF (None Seen); Urine Nitrite NEGATIVE (Negative); Urine Protein TRACE (Negative); Urine RBC None Seen /HPF (None Seen); Urine Urobilinogen Normal (Normal); Urine WBC <5 /HPF (<5); Urine WBC Clump Rare /HPF (None Seen); Urine pH 5.5 (5.0-7.0)
--- NOTE | 2024-02-16 00:29 | EDPHYS ---
Physician Documentation [facility] Name: Pietro Maxwell Age: 49 yrs Sex: Male : 1975 Arrival Date: 02/15/2024 Time: 21:52 Bed 18 Private MD: ED Physician Sid Greer HPI: 02/14 22:42 This 49 yrs old Black Male presents to ER via Ambulatory with complaints of High Blood yadira Pressure, Chest Pain. 22:42 The patient has elevated blood pressure and discovered this at home, with a home yadira device. Modifying factors: The symptoms are aggravated by activity, The symptoms are alleviated by remaining still. Historical: - Allergies: 21:59 Morphine; cm10 - PMHx: 21:59 bowel obstruction; Diverticulitis; Pancreatitis; Hypertensive disorder; cm10 - PSHx: 21:59 Appendectomy; Cholecystectomy; Colectomy; cm10 - Immunization history:: Adult Immunizations up to date. - Infectious Disease History:: Denies. - Social history:: Smoking status: Patient denies any tobacco usage or history of. ROS: 22:42 Constitutional: Negative for fever, chills, and weight loss, Eyes: Negative for injury, yadira pain, redness, and discharge, ENT: Negative for injury, pain, and discharge, Neck: Negative for injury, pain, and swelling, Respiratory: Negative for shortness of breath, cough, wheezing, and pleuritic chest pain, Back: Negative for injury and pain, : Negative for injury, bleeding, discharge, and swelling, MS/Extremity: Negative for injury and deformity, Skin: Negative for injury, rash, and discoloration, Neuro: Negative for headache, weakness, numbness, tingling, and seizure, Psych: Negative for depression, anxiety, suicide ideation, homicidal ideation, and hallucinations, Allergy/Immunology: Negative for hives, rash, and allergies, Endocrine: Negative for neck swelling, polydipsia, polyuria, polyphagia, and marked weight changes, Hematologic/Lymphatic: Negative for swollen nodes, abnormal bleeding, and unusual bruising, 22:42 Cardiovascular: Positive for chest pain, 22:42 Abdomen/GI: Positive for abdominal pain, nausea and vomiting, abdominal cramps, abdominal distension, of the right upper quadrant, left upper quadrant, right lower quadrant and left lower quadrant, 22:42 MS/extremity: Negative for acute changes, Exam: 22:42 Constitutional: This is a well developed, well nourished patient who is awake, alert, yadira and in no acute distress. Head/Face: Normocephalic, atraumatic. Eyes: Pupils equal round and reactive to light, extra-ocular motions intact. Lids and lashes normal. Conjunctiva and sclera are non-icteric and not injected. Cornea within normal limits. Periorbital areas with no swelling, redness, or edema. ENT: Nares patent. No nasal discharge, no septal abnormalities noted. Tympanic membranes are normal and external auditory canals are clear. Oropharynx with no redness, swelling, or masses, exudates, or evidence of obstruction, uvula midline. Mucous membranes moist. Neck: Trachea midline, no thyromegaly or masses palpated, and no cervical lymphadenopathy. Supple, full range of motion without nuchal rigidity, or vertebral point tenderness. No Meningismus. Chest/axilla: Normal chest wall appearance and motion. Nontender with no deformity. No lesions are appreciated. Cardiovascular: Regular rate and rhythm with a normal S1 and S2. No gallops, murmurs, or rubs. Normal PMI, no JVD. No pulse deficits. Respiratory: Lungs have equal breath sounds bilaterally, clear to auscultation and percussion. No rales, rhonchi or wheezes noted. No increased work of breathing, no retractions or nasal flaring. Abdomen/GI: Soft, non-tender, with normal bowel sounds. No distension or tympany. No guarding or rebound. No evidence of tenderness throughout. Back: No spinal tenderness. No costovertebral tenderness. Full range of motion. Male : Normal genitalia with no discharge or lesions. Skin: Warm, dry with normal turgor. Normal color with no rashes, no lesions, and no evidence of cellulitis. MS/ Extremity: Pulses equal, no cyanosis. Neurovascular intact. Full, normal range of motion. Neuro: Awake and alert, GCS 15, oriented to person, place, time, and situation. Cranial nerves II-XII grossly intact. Motor strength 5/5 in all extremities. Sensory grossly intact. Cerebellar exam normal. Normal gait. Psych: Awake, alert, with orientation to person, place and time. Behavior, mood, and affect are within normal limits. 22:42 ECG was reviewed by the Attending Physician. Vital Signs: 21:58 BP 138 / 93; Pulse 86; Resp 16; Temp 97.4; Pulse Ox 97% on R/A; Weight 124.74 kg; cm10 Height 6 ft. 0 in. ; Pain 8/10; 02/15 00:30 BP 127 / 91; Pulse 74; Resp 20; Pulse Ox 100% ; cp4 01:30 BP 117 / 95; Pulse 72; Resp 20; Pulse Ox 100% ; cp4 02:30 BP 131 / 81; Pulse 72; Resp 18; Pulse Ox 99% ; cp4 03:15 BP 122 / 75; Pulse 74; Resp 18; Pulse Ox 99% ; cp4 02/14 21:58 Body Mass Index 37.30 (124.74 kg, 182.88 cm) cm10 02/14 21:58 Pain Scale: Adult cm10 Homer Coma Score: 02/14 22:42 Eye Response: spontaneous(4). Motor Response: obeys commands(6). Verbal Response: yadira oriented(5). Total: 15. MDM: 22:06 Patient medically screened. yadira 22:44 Differential diagnosis: abnormal EKG, anxiety, chest wall pain, hypertensive crisis, yadira Malignant HTN, esophagitis, gastritis, stable angina. HEART Score: ECG: Non specific repolarization disturbance / LBTB / PM (1), Age: > 45 and < 65 years (1), Risk Factors: > or = 3 Risk factors for atherosclerotic disease (2), [Hypertension] [+ Family HX] [Obesity] Troponin: < or = 1 x Normal Limit (0). The patient was given aspirin in the Emergency Department. TERESA Risk Score: TOTAL SCORE = 0. Data reviewed: vital signs, nurses notes, lab test result(s), EKG, radiologic studies, CT scan, plain films. Consideration of Admission/Observation Patient was admitted/placed on observation. Escalation of care including admission/observation considered. I considered the following discharge prescriptions or medication management in the emergency department Medications were administered in the Emergency Department. See MAR. Independent interpretation of the following test(s) in the Emergency Department EKG: See my EKG interpretation above. Test considered but Not performed: Ultrasound no 2 d echo. Care significantly affected by the following chronic conditions: Hypertension, Obesity, sbo, diverticulitis. Counseling: I had a detailed discussion with the patient and/or guardian regarding the historical points, exam findings, and any diagnostic results supporting the discharge/admit diagnosis, lab results, radiology results. 02/14 22:10 Order name: Basic Metabolic Panel; Complete Time: 23:32 [facility] 02/14 22:10 Order name: CBC with Diff; Complete Time: 23:32 [facility] 02/14 22:10 Order name: LFT's; Complete Time: 23:32 [facility] 02/14 22:10 Order name: Magnesium; Complete Time: 23:32 [facility] 02/14 22:10 Order name: NT PRO-BNP; Complete Time: 23:32 [facility] 02/14 22:10 Order name: PT-INR; Complete Time: 23:32 [facility] 02/14 22:10 Order name: Troponin HS; Complete Time: 23:32 [facility] 02/14 22:10 Order name: Lipase; Complete Time: 23:[facility] 02/14 22:10 Order name: Urinalysis w/ reflexes; Complete Time: 00:26 [facility] 02/15 01:04 Order name: CBC with Automated Diff [facility] 02/15 01:04 Order name: CBC with Automated Diff [facility] 02/15 01:04 Order name: Comprehensive Metabolic Panel [facility] 02/15 01:04 Order name: Comprehensive Metabolic Panel [facility] 02/15 01:04 Order name: Troponin High Sensitivity [facility] 02/15 01:04 Order name: Troponin High Sensitivity [facility] 02/15 01:04 Order name: Troponin High Sensitivity [facility] 02/15 01:04 Order name: Troponin High Sensitivity [facility] 02/14 22:10 Order name: XRAY Chest (1 view) [facility] 02/14 22:41 Order name: CT Chest, Abdomen, Pelvis - W/Contrast [facility] 02/14 22:10 Order name: Cardiac monitoring; Complete Time: 00:07 [facility] 02/14 22:10 Order name: EKG - Nurse/Tech; Complete Time: 00:07 [facility] 02/14 22:10 Order name: IV Saline Lock; Complete Time: 22:56 [facility] 02/14 22:10 Order name: Labs collected and sent; Complete Time: 22:56 [facility] 02/14 22:10 Order name: O2 Per Protocol; Complete Time: 22:55 [facility] 02/14 22:10 Order name: O2 Sat Monitoring; Complete Time: 22:55 [facility] 02/15 00:36 Order name: NPO; Complete Time: 00:46 yadira EC:42 Rate is 78 beats/min. Rhythm is regular. QRS [place] is Normal. OR interval is normal. QRS yadira interval is normal. QT interval is normal. No Q waves. T waves are Normal. Clinical impression: NSR w/ Non-specific ST/T Changes, LVH, and No evidence of ischemia. Interpreted by me. Reviewed by me. Administered Medications: 23:44 Drug: NS 0.9% IV 1000 ml IV at 1 bolus Per protocol; 1000 mL bolus Route: IV; Rate: 1 br2 bolus; Site: right antecubital; 02/15 02:10 Follow up: Response: No adverse reaction; IV Status: Completed infusion cp4 02/14 23:44 Drug: fentaNYL (PF) IVP 50 mcg IVP once Route: IVP; Site: right antecubital; br2 02/15 00:00 Follow up: Response: No adverse reaction 4 02/14 23:44 Drug: Ondansetron IVP 4 mg IVP once; over 2 minutes Route: IVP; Site: right antecubital;br2 02/15 00:00 Follow up: Response: No adverse reaction 4 02/14 23:54 Drug: Aspirin PO Chewable Tablet 324 mg PO once; 81 mg tablets x 4 Route: PO; br2 02/15 00:15 Follow up: Response: No adverse reaction 4 02/14 23:54 Drug: Famotidine IVP 20 mg IVP once; dilute with 10 mL 0.9% NaCl; give over 2 minutes br2 Route: IVP; Site: right antecubital; 02/15 00:15 Follow up: Response: No adverse reaction cp4 02:09 Drug: fentaNYL (PF) IVP 50 mcg IVP once Route: IVP; Site: right antecubital; cp4 02:30 Follow up: Response: No adverse reaction cp4 02:09 Drug: Ondansetron IVP 4 mg IVP once; over 2 minutes Route: IVP; Site: right antecubital;cp4 02:30 Follow up: Response: No adverse reaction cp4 02:10 Drug: NS 0.9% IV 1000 ml IV at 125 ml/hr continuous Route: IV; Rate: 125 ml/hr; Site: cp4 right antecubital; 03:31 Follow up: Response: No adverse reaction; IV Status: Infusion continued upon admission cp4 Disposition Summary: 02/16/24 00:29 Hospitalization Ordered Notes: Hospitalization Status: Observation yadira Provider: Yarelis Agosto cha Location: Telemetry/MedSurg (observation) yadira Condition: Fair yadira Problem: new yadira Symptoms: have improved yadira Bed/Room Type: Standard yadira Room Assignment: 211(02/16/24 01:10) jb4 Diagnosis - Essential (primary) hypertension yadira - Chest pain, unspecified yadira - Abdominal pain, Generalized yadira - Vomiting yadira - Obesity, unspecified yadira - Ileus, unspecified - Enteritis yadira Forms: - Medication Reconciliation Form yadira - SBAR form yadira - Leadership Thank You Letter yadira Signatures: Dispatcher [employer] EDMS Sid Greer MD MD cha Bryson, James RN RN jb4 Katie Feng RN RN cm10 Anabella Finney cp4 Samaria Cavanaugh RN RN br2 Corrections: (The following items were deleted from the chart) 02/14 22:10 22:10 BASIC METABOLIC PANEL+C.LAB.BRZ ordered. EDMS EDMS 22:10 22:10 CBC+H.LAB.BRZ ordered. EDMS EDMS 22:10 22:10 HEPATIC FUNCTION+C.LAB.BRZ ordered. EDMS EDMS 22:10 22:10 MAGNESIUM+C.LAB.BRZ ordered. EDMS EDMS 22:10 22:10 PROBNP+C.LAB.BRZ ordered. EDMS EDMS 22:10 22:10 Troponin High Sensitivity+C.LAB.BRZ ordered. EDMS EDMS 22:10 22:10 LIPASE+C.LAB.BRZ ordered. EDMS EDMS 22:10 22:10 Urinalysis+U.LAB.BRZ ordered. EDMS EDMS 22:10 22:10 Chest Single View+RAD.RAD.BRZ ordered. EDMS EDMS 22:42 22:42 Chest Abdomen Pelvis W Con+CT.RAD.BRZ ordered. EDMS EDMS 22:56 22:10 PROTIME (+INR)+COAG.LAB.BRZ ordered. EDMS EDMS 02/15 01:10 00:29 yadira jb4
--- NOTE | 2024-02-16 00:29 | ER ---
Nurse's Notes [facility] Name: Pietro Maxwell Age: 49 yrs Sex: Male : 1975 Arrival Date: 02/15/2024 Time: 21:52 Bed 18 Private MD: Diagnosis: Essential (primary) hypertension;Chest pain, unspecified;Abdominal pain, Generalized;Vomiting;Obesity, unspecified;Ileus, unspecified-Enteritis Presentation: 02/14 21:58 Chief complaint: Patient states: Chest pain to the center of his chest that he cm10 describes as dull onset yesterday. Pt also reports nausea, abdominal pain and generalized body aches. Coronavirus screen: Client denies travel out of the [place] in the last 14 days. At this time, the client does not indicate any symptoms associated with coronavirus-19. Ebola Screen: Patient denies travel to an Ebola-affected area in the 21 days before illness onset. No symptoms or risks identified at this time. Initial Sepsis Screen: Does the patient meet any 2 criteria? No. Patient's initial sepsis screen is negative. Does the patient have a suspected source of infection? No. Patient's initial sepsis screen is negative. Risk Assessment: Do you want to hurt yourself or someone else? Patient reports no desire to harm self or others. Onset of symptoms was February 15, 2024. 21:58 Method Of Arrival: Ambulatory cm10 21:58 Acuity: ELSA 2 cm10 Triage Assessment: 22:00 General: Appears in no apparent distress. uncomfortable, Behavior is calm, cooperative. cm10 Pain: Complains of pain in chest and abdomen Pain currently is 8 out of 10 on a pain scale. Quality of pain is described as dull. Neuro: No deficits noted. Level of Consciousness is awake, alert, obeys commands, Oriented to person, place, time, situation, Appropriate for age. Respiratory: No deficits noted. Airway is patent Respiratory effort is even, unlabored, Respiratory pattern is regular, symmetrical. Historical: - Allergies: 21:59 Morphine; cm10 - PMHx: 21:59 bowel obstruction; Diverticulitis; Pancreatitis; Hypertensive disorder; cm10 - PSHx: 21:59 Appendectomy; Cholecystectomy; Colectomy; cm10 - Immunization history:: Adult Immunizations up to date. - Infectious Disease History:: Denies. - Social history:: Smoking status: Patient denies any tobacco usage or history of. Screenin/29 00:14 [facility] ED Fall Risk Assessment (Adult) History of falling in the last 3 months, cp4 including since admission No falls in past 3 months (0 pts) Confusion or Disorientation No (0 pts) Intoxicated or Sedated No (0 pts) Impaired Gait No (0 pts) Mobility Assist Device Used No (0 pt) Altered Elimination No (0 pt) Score/Fall Risk Level 0 - 2 = Low Risk Oriented to surroundings, Maintained a safe environment, Assessed \T\ reinforced patient's understanding of fall precautions, Hourly rounding (assess needs \T\ fall precautionary measures) done. Abuse screen: Denies threats or abuse. Nutritional screening: No deficits noted. Tuberculosis screening: No symptoms or risk factors identified. Assessment: 02/14 23:55 General: Appears in no apparent distress. Pain: Complains of pain in chest and abdomen br2 Pain does not radiate. Pain at worst was 8 out of 10 on a pain scale. Pain began 2 hours ago. Cardiovascular: No deficits noted. Rhythm is regular. Respiratory: No deficits noted. GI: Reports lower abdominal pain. 02/15 00:12 General: Appears in no apparent distress. comfortable, Behavior is calm, cooperative, cp4 appropriate for age. Pain: Complains of pain in left lower quadrant and right lower quadrant and left upper quadrant and right upper quadrant and abdomen and chest Pain does not radiate. Pain at worst was 8 out of 10 on a pain scale. Pain began 2 hours ago. Neuro: Level of Consciousness is awake, alert, obeys commands, Oriented to person, place, time, situation. Cardiovascular: Rhythm is sinus rhythm. Respiratory: Airway is patent Respiratory effort is even, unlabored. GI: Reports lower abdominal pain. : No signs and/or symptoms were reported regarding the genitourinary system. EENT: No signs and/or symptoms were reported regarding the EENT system. Derm: No signs and/or symptoms reported regarding the dermatologic system. Musculoskeletal: No signs and/or symptoms reported regarding the musculoskeletal system. 01:00 Reassessment: Patient appears in no apparent distress at this time. Patient and/or cp4 family updated on plan of care and expected duration. Pain level reassessed. Patient is alert, oriented x 3, equal unlabored respirations, skin warm/dry/pink. 02:00 Reassessment: Patient appears in no apparent distress at this time. Patient and/or cp4 family updated on plan of care and expected duration. Pain level reassessed. Patient is alert, oriented x 3, equal unlabored respirations, skin warm/dry/pink. 03:00 Reassessment: Patient appears in no apparent distress at this time. Patient and/or cp4 family updated on plan of care and expected duration. Pain level reassessed. Patient is alert, oriented x 3, equal unlabored respirations, skin warm/dry/pink. Vital Signs: 02/14 21:58 BP 138 / 93; Pulse 86; Resp 16; Temp 97.4; Pulse Ox 97% on R/A; Weight 124.74 kg; cm10 Height 6 ft. 0 in. ; Pain 10; 02/15 00:30 BP 127 / 91; Pulse 74; Resp 20; Pulse Ox 100% ; cp4 01:30 BP 117 / 95; Pulse 72; Resp 20; Pulse Ox 100% ; cp4 02:30 BP 131 / 81; Pulse 72; Resp 18; Pulse Ox 99% ; cp4 03:15 BP 122 / 75; Pulse 74; Resp 18; Pulse Ox 99% ; cp4 02/14 21:58 Body Mass Index 37.30 (124.74 kg, 182.88 cm) cm10 02/14 21:58 Pain Scale: Adult cm10 Jenelle Coma Score: 02/14 22:42 Eye Response: spontaneous(4). Motor Response: obeys commands(6). Verbal Response: yadira oriented(5). Total: 15. ED Course: 21:54 Patient arrived in ED. jj6 21:59 Triage completed. cm10 22:00 Arm band placed on Patient placed in an exam room, on a stretcher. EKG completed in cm10 triage. Results shown to MD. 22:00 EKG done, by ED staff, reviewed by Sid Greer MD. cm10 22:06 Sid Greer MD is Attending Physician. yadira 22:26 XRAY Chest (1 view) In Process Unspecified. EDMS 22:55 No provider procedures requiring assistance completed. Inserted saline lock: 20 gauge al5 in right antecubital area, using aseptic technique. ,using aseptic technique. via ultrasound guided iv Blood collected. Flushed with 10 mL NS. Patient maintains SpO2 saturation greater than 95% on room air. 22:56 Basic Metabolic Panel Sent. al5 22:56 CBC with Diff Sent. al5 22:56 LFT's Sent. al5 22:56 Magnesium Sent. al5 22:56 NT PRO-BNP Sent. al5 02/15 00:00 CT Chest, Abdomen, Pelvis - W/Contrast In Process Unspecified. EDMS 00:14 Bed in low position. Call light in reach. Side rails up X 1. Client placed on 4 continuous cardiac and pulse oximetry monitoring. NIBP monitoring applied. threat monitoring analyst on. Pulse ox on. NIBP on. 00:27 Yarelis Agosto MD is Hospitalizing Provider. [facility] 00:46 Anabella Finney is Primary Nurse. [facility] 03: Provided Education on: admission. [facility] 03: Patient admitted, IV remains in place. 4 Administered Medications: 02/14 23:44 Drug: NS 0.9% IV 1000 ml IV at 1 bolus Per protocol; 1000 mL bolus Route: IV; Rate: 1 br2 bolus; Site: right antecubital; 02/15 02:10 Follow up: Response: No adverse reaction; IV Status: Completed infusion [facility] 02/14 23:44 Drug: fentaNYL (PF) IVP 50 mcg IVP once Route: IVP; Site: right antecubital; br2 02/15 00:00 Follow up: Response: No adverse reaction [facility] 02/14 23:44 Drug: Ondansetron IVP 4 mg IVP once; over 2 minutes Route: IVP; Site: right antecubital;br2 02/15 00:00 Follow up: Response: No adverse reaction [facility] 02/14 23:54 Drug: Aspirin PO Chewable Tablet 324 mg PO once; 81 mg tablets x 4 Route: PO; br2 02/15 00:15 Follow up: Response: No adverse reaction [facility] 02/14 23:54 Drug: Famotidine IVP 20 mg IVP once; dilute with 10 mL 0.9% NaCl; give over 2 minutes br2 Route: IVP; Site: right antecubital; 02/15 00:15 Follow up: Response: No adverse reaction [facility] 02:09 Drug: fentaNYL (PF) IVP 50 mcg IVP once Route: IVP; Site: right antecubital; cp4 02:30 Follow up: Response: No adverse reaction cp4 02:09 Drug: Ondansetron IVP 4 mg IVP once; over 2 minutes Route: IVP; Site: right antecubital;cp4 02:30 Follow up: Response: No adverse reaction cp4 02:10 Drug: NS 0.9% IV 1000 ml IV at 125 ml/hr continuous Route: IV; Rate: 125 ml/hr; Site: cp4 right antecubital; 03:31 Follow up: Response: No adverse reaction; IV Status: Infusion continued upon admission cp4 Medication: 00:14 VIS not applicable for this client. cp4 Outcome: 00:29 Decision to Hospitalize by Provider. yadira 03:29 Admitted to Med/surg accompanied by tech, via wheelchair, with chart, cp4 03:29 Condition: stable 03:29 Instructed on the need for admit, 03:31 Patient left the ED. cp4 Signatures: Dispatcher [employer] EDMS Sid Greer MD MD cha Jeffries, Jennifer jj6 Katie Feng, RN RN cm10 Anabella Finney cp4 Bel Gandara RN RN al5 Samaria Cavanaugh, RN RN br2 Corrections: (The following items were deleted from the chart) 02/14 22:56 22:56 PROTIME (+INR)+COAG.LAB.BRZ drawn and sent. al5 SEYMOUR
[2024-02-16] MEDS ORDERED: ALBUTEROL 2.5 MG/3 ML NEB SOL NEB PRN (00:57)
[2024-02-16] MEDS ORDERED: MORPHINE 2 MG/ML SYR IV PRN (00:57)
[2024-02-16] MEDS ORDERED: ONDANSETRON 4 MG/2 ML VIAL IV PRN (00:57)
[2024-02-16] MEDS ORDERED: HYDRALAZINE HCL 20 MG/ML VIAL IV PRN ×2 (01:01→05:41)
--- NOTE | 2024-02-16 01:08 | P.HP ---
Certification for Inpatient With expected LOS: >2 Midnights Practitioner: I am a practitioner with admitting privileges, knowledge of patient current condition, hospital course, and medical plan of care. Services: Services provided to patient in accordance with Admission requirements found in Title 42 Section 412.3 of the Code of Federal Regulations Patient History Date of Service: 02/16/24 Reason for admission: Chest and abdominal pain History of Present Illness: 49-year-old male with past medical history of hypertension, pancreatitis as well as recurrent bouts diverticulitis in the past requiring bowel resection and anastomosis 6 months ago;, presenting because of new onset chest pain located in the substernal area and radiating to the upper abdominal area. Patient also complaining of similar abdominal pain nonradiating generalized cramping in pattern. Patient is mainly complaining of abdominal pain at the time of interview. She rates pain at about 9-10 out of 10. He said he had a bout of diarrhea prior to onset of pain symptoms. Diarrhea was 1 episode nonbloody. Patient admits to new onset vomiting today nonbilious with no hematemesis. He presented to the emergency room because of worsening symptoms. On arrival in the ED vital signs were stable afebrile, laboratory workup shows normal CBC, BMP was unremarkable except for glucose of 158. Initial set of troponin was negati ve. Lipase was normal at 11. Urinalysis was also unremarkable. Chest x-ray shows no acute infiltrate. Abdominal CT shows mild ileus on prelim reading. Full report pending. patient is being admitted for rule out chest pain as well as abdominal ileus Allergies morphine Allergy (Verified 02/16/24 03:48) Hives Home Medications: NK [No Home Meds] 02/16/24 - Past Medical/Surgical History Diabetic: No -: Pancreatitis -: Diverticulitis -: Bowel Obstruction -: Cholecystectomy -: Appendectomy - Family History Father -: Cancer Mother -: Cancer - Social History Smoking Status: Never smoker Smoking therapy provided: No Patient receptive to therapy: No Alcohol use: No CD- Drugs: No Caffeine use: Yes Place of Residence: Home Review of Systems Cardiovascular: Chest Pain Gastrointestinal: Nausea, Vomiting, Abdominal Pain Physical Examination - Physical Exam General: Alert, In no apparent distress, Oriented x3, Cooperative HEENT: Atraumatic, Normocephalic, PERRLA, Mucous membr. moist/pink Neck: Supple, 2+ carotid pulse no bruit, JVD not distended Respiratory: Clear to auscultation bilaterally, Normal air movement Cardiovascular: No edema, Normal pulses, Regular rate/rhythm, Normal S1 S2 Gastrointestinal: Normal bowel sounds, Soft and benign, Non-distended, No ascites, No guarding, Tenderness (Generalized,) Musculoskeletal: No clubbing, No swelling Integumentary: No significant lesion, No tenderness/swelling Neurological: Normal speech, Normal strength at 5/5 x4 extr, Sensation intact, Cranial nerves 3-12 intact - Studies Laboratory Data (last 24 hrs) 02/15/24 02/15/24 02/15/24 22:48 22:48 22:48 WBC 5.50 Hgb 14.0 Hct 42.4 Plt Count 258 PT 12.4 INR 1.11 Sodium 137 Potassium 3.6 BUN 13 Creatinine 1.06 Glucose 158 H Magnesium 2.2 Total Bilirubin 0.7 AST 19 ALT 36 Alkaline Phosphatase 99 Lipase 11 L Assessment and Plan - Problems (Diagnosis) (1) Ileus, postoperative Current Visit: Yes Status: Acute (2) Chest pain Current Visit: Yes Status: Acute - Plan Impression Atypical chest painMay be due to gastritis versus rule out acute coronary syndrome Abdominal ileus History of recurrent diverticulitis History of hypertension Plan Will admit patient to observation Start clear liquids Start gentle IV fluid Serial sets of cardiac enzymes Start IV Pepcid Serial sets of cardiac enzymes Monitor abdominal ileus Pain control Given recurrent sets of diverticulitis will start empiric antibiotics with Flagyl and cefepime for now KUB daily Follow full report of CT of the abdomenrule out recurrent diverticulitis Subcutaneous Lovenox for DVT prophylaxis Full code - Advance Directives Does patient have a Living Will: No Does patient have a Durable POA for Healthcare: No Time Spent Managing Pts Care (In Minutes): 65
[2024-02-16] MEDS ORDERED: ONDANSETRON 4 MG/2 ML VIAL ONE (02:03)
[2024-02-16] MEDS ORDERED: FENTANYL CITR 100 MCG/2 ML ONE (02:03)
[2024-02-16] MEDS ORDERED: NA CHLORIDE 0.9% 1,000 ML ONE (02:05)
[2024-02-16] MEDS: D5 0.9 NS 1,000 ML IV SCH (03:34)
[2024-02-16 04:04] VITALS: BMI 39.5
[2024-02-16] MEDS: HYDROMORPHONE HCL 0.5 MG/0.5 ML INJ IV ONE (04:10)
[2024-02-16] MEDS: HYDROMORPHONE HCL 1 MG/ML INJ IV ONE (06:12)
[2024-02-16] MEDS: CEFEPIME 1 GM in NA CHLORIDE 0.9% 100 ML IV SCH (06:16)
[2024-02-16] MEDS: METRONIDAZOLE 500mg IVPB 500 MG/100 ML BAG IV SCH (07:20)
[2024-02-16 07:35] LABS: Absolute Eosinophils 0.1 K/uL (0-0.5); Absolute Monocytes 0.6 K/uL (0.1-1.3); Absolute Neutrophil 1.7 K/uL (1.8-8.0); Basophils % 0.6 % (0-1.3); Hematocrit 42.2 % (39.6-49.0); Hemoglobin 13.8 g/dL (13.6-17.9); Lymphocytes % 55.8 % (15.3-44.8); MCH 28.3 pg (27.0-35.0); MCHC 32.6 g/dL (32.0-36.0); MCV 86.6 fL (80-100); MPV 8.4 fL (7.6-11.3); Monocytes % 10.8 % (3.3-12.3); Neutrophils % 30.8 % (41.7-73.7); Nucleated Red Blood Cells % 0.1 % (0-0); Platelets 214 thou/uL (152-406); RBC Red Blood Cell Count 4.87 M/uL (4.33-5.43)
[2024-02-16 07:59] LABS: Albumin 3.3 g/dL (3.4-5.0); Albumin/Globulin Ratio 0.8 (1.1-1.8); Bilirubin Total 0.5 mg/dL (0.2-1.0); Magnesium 2.2 mg/dL (1.6-2.4); Protein, Total 7.3 g/dL (6.4-8.2)
[2024-02-16] MEDS: ENOXAPARIN 40 MG/0.4 ML SQ SCH (09:27)
[2024-02-16] MEDS: FAMOTIDINE 20 MG/2 ML VIAL IV SCH (09:27)
[2024-02-16] MEDS: DIPHENHYDRAMINE 50 MG/ML VIAL IV PRN (10:14)
[2024-02-16] MEDS: SUCRALFATE 1GM/10ML UCUP PO SCH (10:15)
[2024-02-16] MEDS: HYDROMORPHONE HCL 1 MG/ML INJ IV PRN (10:15)
--- NOTE | 2024-02-16 11:07 | RAD REPORT ---
EXAM DESCRIPTION: CT CHEST ABDOMEN PELVIS WITH IV CONTRAST 02/16/2024 12:21 AM CDT CLINICAL HISTORY: 49 years, Male, Abdominal distention, chest pain, nausea with body aches. COMPARISON: CT Abdomen pelvis 06/09/[address] Chest angiography 03/11/2020. TECHNIQUE: Contrast-enhanced images of the chest, abdomen and pelvis were performed from the lung ap ices to the ischial tuberosities after the administration of IV contrast. In addition multiplanar reformats in the coronal and sagittal plane were obtained and reviewed. An individualized dose optimization technique, Automated Exposure Control, was utilized for the perfo rmed procedure. FINDINGS: CHEST: Lower neck: Visualized thyroid gland and soft tissues are normal. No adenopathy. Lungs: The lung parenchyma demonstrate to be clear. Mild low volume with minimal atelectatic changes are seen in angles. No evidence of airspace or interstitial process. No significant pulmonary nodules and/or masses identified. No focal areas of consolidation. Airways: The trachea mainstem bronchus demonstrate to be unremarkable. Pleural: There are no pleural effusion. No evidence for pneumothorax. Hemidiaphragms are normally pos itioned. Mediastinum and lymph nodes: No significant mediastinal and/or hilar lymphadenopathy. The axillary re gions demonstrate to be clear. Heart: Normal size. No pericardial thickening or effusion. Coronary: No significant coronary artery calcifications. Aorta: The thoracic aorta demonstrate to be within normal limits. No evidence for aneurysm. Pulmonary arteries: The central pulmonary arteries demonstrate to be within normal limits. No evidenc e for significant central filling defect to suggest pulmonary embolus. Osseous structures and chest wall: The thoracic spine demonstrate to be within normal limits. No evid ence for compression deformities and/or significant skeletal lesions. ABDOMEN AND PELVIS: Liver: The liver demonstrated presence of decreased attenuation corresponding to mild fatty infiltration. Gallbladder: Surgical clips within the gallbladder fossa corresponding to previous cholecystectomy. N o significant biliary duct dilatation. Adrenal glands: The adrenal glands demonstrate to be normal. Pancreas: The pancreas demonstrate to be normal. Spleen: The spleen demonstrate to be within normal limits. Kidneys: The kidneys demonstrate normal uptake of contrast media. There is no evidence for nephroli thiasis and/or hydronephrosis. Again identified presence of a upper pole hyperdense left renal cyst m easuring approximately 3.6 x 2.8 cm, tiny layering calcification within the lower posterior aspect co rrespond to most likely milk of calcium, not significantly changed when compared to prior studies. GI: Grossly the unopacified stomach, small bowel and large bowel demonstrate to be within normal limi ts. Minimal prominent proximal small bowel loops are nonspecific perhaps suggesting mild ileus and/or enteritis. No evidence for bowel dilatation and/or free air. The appendix was not visualized. The le ft-sided colon demonstrate to be decompressed with no gross abnormalities. There is surgical anastomo sis within the sigmoid colon. : The urinary bladder demonstrate partially distended with no gross abnormalities. Genitalia: The prostate gland is normal. Abdominal aorta: The aorta demonstrate to be within normal limits. Retroperitoneum: There is no retroperitoneal lymphadenopathy. There is no evidence for ascites and/or abnormal fluid collections. Bones: The bony structures demonstrate to be within normal limits. No evidence for compression deform ity and/or significant skeletal lesions. Soft tissues: There is a small umbilical hernia containing omentum containing omentum and small bowel . No evidence for incarceration. IMPRESSION: Minimal prominent proximal small bowel loops are nonspecific perhaps suggesting mild ile us and/or enteritis. No evidence for bowel dilatation and/or free air. Stable umbilical hernia containing omentum and small bowel. Stable upper pole hyperdense left renal cyst, tiny layering calcification within the lower posterior aspect correspond to most likely milk of calcium, not significantly changed when compared to prior st udies. Mild fatty infiltration of the liver. Status post cholecystectomy. Electronically signed by: Jung Lay MD 02/16/2024 12:31 AM CDT RP Due to temporary technical issues with the PACS/Fluency reporting system, reports are being signed by the in house radiologist without review as a courtesy to ensure prompt reporting. The interpreting r adiologist is fully responsible for the content of the report.
--- NOTE | 2024-02-16 11:19 | RAD REPORT ---
EXAM DESCRIPTION: RAD - Abdomen 1 View (KUB) - 02/16/2024 10:56 am CLINICAL HISTORY: Abdominal ileus follow-up Pain COMPARISON: Chest Abdomen Pelvis W Cont dated 02/15/2024 FINDINGS: The bowel gas pattern is non-obstructive. No evidence of free air or pneumatosis. No suspi cious calcifications. No significant bony findings. Cholecystectomy clips. IMPRESSION: Negative examination.
--- NOTE | 2024-02-16 17:29 | P.PN ---
Date of Service: 02/16/24 Patient seen on rounds this morning Continues with moderate pain throughout his abdomen Reports 2 bowel movements this morning History of diverticulitis episodes. Required colon resection with reanastomosis earlier this year ~August due to his recurrent diverticulitis Reports feeling a fluttering in his chest intermittently over the last 7 years, lasting for minutes to hours, approximately occurring 34 times a year Denies any immediate family members having history of any cardiac issues. Troponins negative x 3 Given his GI symptoms, and possible ileus on imaging, the lower chest discomfort would be more consistent with a GI etiology Overall cardiac risk is low Continue liquid diet, pain medication, trend lipase
[2024-02-16] MEDS: MELATONIN 3 MG TABLET PO ONE (21:30)
[2024-02-17 04:44] LABS: Absolute Eosinophils 0.1 K/uL (0-0.5); Absolute Lymphocytes (CBC) 2.9 K/uL (0.7-4.9); Absolute Monocytes 0.4 K/uL (0.1-1.3); Absolute Neutrophil 1.8 K/uL (1.8-8.0); Basophils % 0.9 % (0-1.3); Eosinophils % 2.1 % (0-4.4); Hematocrit 37.9 % (39.6-49.0); Hemoglobin 12.3 g/dL (13.6-17.9); Lymphocytes % 54.8 % (15.3-44.8); MCH 27.7 pg (27.0-35.0); MCHC 32.4 g/dL (32.0-36.0); MCV 85.6 fL (80-100); MPV 8.4 fL (7.6-11.3); Monocytes % 8.1 % (3.3-12.3); Neutrophils % 34.1 % (41.7-73.7); Platelets 197 thou/uL (152-406); RBC Red Blood Cell Count 4.43 M/uL (4.33-5.43); Red Cell Distribution Width 13.1 % (12.1-15.2)
[2024-02-17 05:02] LABS: Albumin 3.1 g/dL (3.4-5.0); Albumin/Globulin Ratio 0.9 (1.1-1.8); Anion Gap 5.7 mEq/L (5.0-15.0); Bilirubin Total 0.5 mg/dL (0.2-1.0); Globulin 3.4 g/dL (2.3-3.5); Potassium 3.7 mEq/L (3.5-5.1); Protein, Total 6.5 g/dL (6.4-8.2)
[2024-02-17 05:16] LABS: Band Neutrophils 11 % (0-1); Differential Total Cells Count 100; Eosinophils 2 % (0-3); Lymphocytes 51 % (15-42); Monocytes 5 % (0-10); Reactive Lymphocytes 5 %; Segmented Neutrophils 26 % (40-80)
[2024-02-17 05:17] LABS: Blood Morphology Comment NOT SEEN (NOT SEEN); Platelet Estimate ADEQ
--- NOTE | 2024-02-17 08:32 | P.PN ---
Date of Service: 02/17/24 Subjective: Feeling better today overall pain slightly improved diarrhea improving, +increased flatus reports Nausea ~same. no vomiting. continues with some abdominal discomfort/soreness. Slightly improved today afebrile ROS: 10 point ROS as noted above, otherwise negative Physical Exam: GEN: Alert, oriented, NAD CV: Regular rate and rhythm, no edema Pulm: Nonlabored respirations on room air, clear bilaterally ABD: Soft, mild tenderness - diffuse / mostly perimumbilical, nondistended Neuro: Normal speech, normal affect vitals reviewed Problem List: Abdominal pain; Possible ileus vs enteritis Hx recurrent diverticulitis, s/p resection with reanastomosis (~August 2023) Atypical chest pain Hypertension Abdominal pain; Possible ileus vs enteritis Hx recurrent diverticulitis, s/p resection with reanastomosis (~August 2023) Presents with atypical lower chest pain, cramping abdominal pains. Had 1 episode of non-bloody diarrhea prior to onset of pain. +new onset vomiting Has History of diverticulitis episodes. Required colon resection with reanastomosis earlier this year ~August due to his recurrent diverticulitis Given his GI symptoms, and possible ileus on imaging, the lower chest discomfort would be more consistent with a GI etiology CT Chest/abd (02/14): minimal prominent proximal small bowel loops suggesting mild ileus / enteritis. No evidence of dilatation or free air. Also noted: stable umbilical hernia containing omentum/small bowel. Mild fatty liver infiltrate. Stable upper pole hyperdense left renal cyst. KUB (02/15): unremarkable repeat KUB (02/16): Probable ileus continue empiric flagyl / cefepime (02/15-) afebrile, no leukocytosis elevated bands on diff Advance to full liquids for lunch. pain control; norco 5/325 added 02/16 - has taken in the past before IV pepcid BID Atypical chest pain Reports feeling a fluttering in his chest intermittently over the last 7 years, lasting for minutes to hours, approximately occurring 34 times a year Denies any immediate family members having history of any cardiac issues. Troponins negative x 3 CXR negative Given his GI symptoms, and possible ileus on imaging, the lower chest discomfort would be more consistent with a GI etiology Overall cardiac risk is low Hypertension confirm home meds, restart as appropriate VTE: Lovenox Code: Full Dispo: Home, ~1-2 days pain improves, nausea resolves Time Spent Managing Pts Care (In Minutes): 41
--- NOTE | 2024-02-17 10:57 | RAD REPORT ---
EXAM DESCRIPTION: RAD - Abdomen 1 View (KUB) - 02/17/2024 10:40 am CLINICAL HISTORY: Abdomen pain FINDINGS: Air is present within multiple loops of jejunum which are upper limits normal caliber to b orderline enlarged. No significant change since CT February 15 Remainder the bowel gas pattern unremarkable. This probably represents an ileus Surgical clips right upper quadrant
[2024-02-17 13:42] VITALS: O2SAT 98
[2024-02-17] MEDS: HYDROCODONE/APAP 5/325 MG TAB PO PRN (14:30)
--- NOTE | 2024-02-17 14:43 | EKG ---
Test Date: 2024-02-15 Test Time: 22:03:59 [employer] Teacher: ANGEL MEASUREMENT RESULTS: Intervals: Rate: 78 [place]: 184 QRSD: 96 QT: 362 QTc: 412 [place]: P: 44 [place]: 184 QRS: -1 T: -3 INTERPRETIVE STATEMENTS: Normal sinus rhythm Voltage criteria for left ventricular hypertrophy Inferior infarct, age undetermined Abnormal ECG Compared to ECG 09/22/2020 09:17:07 Myocardial infarct finding now present First degree AV block no longer present Electronically Signed On 02-17-24 14:40:26 CDT by Jon Rouse
[2024-02-17] MEDS: MELATONIN 3 MG TABLET PO SCH (20:21)
[2024-02-18 06:17] LABS: Absolute Eosinophils 0.1 K/uL (0-0.5); Absolute Lymphocytes (CBC) 3.2 K/uL (0.7-4.9); Absolute Monocytes 0.4 K/uL (0.1-1.3); Absolute Neutrophil 2.5 K/uL (1.8-8.0); Basophils % 0.7 % (0-1.3); Eosinophils % 1.7 % (0-4.4); Hematocrit 35.4 % (39.6-49.0); Lymphocytes % 50.8 % (15.3-44.8); MCH 28.4 pg (27.0-35.0); MCHC 33.9 g/dL (32.0-36.0); MPV 8.3 fL (7.6-11.3); Monocytes % 5.9 % (3.3-12.3); Neutrophils % 40.9 % (41.7-73.7); Platelets 222 thou/uL (152-406); RBC Red Blood Cell Count 4.22 M/uL (4.33-5.43); Red Cell Distribution Width 12.8 % (12.1-15.2)
[2024-02-18] MEDS ORDERED: HYDROMORPHONE HCL 0.5 MG/0.5 ML INJ IV PRN (06:20)
[2024-02-18 06:44] LABS: Albumin 3.1 g/dL (3.4-5.0); Albumin/Globulin Ratio 0.9 (1.1-1.8); Anion Gap 8.5 mEq/L (5.0-15.0); Bilirubin Total 0.3 mg/dL (0.2-1.0); Globulin 3.4 g/dL (2.3-3.5); Magnesium 1.9 mg/dL (1.6-2.4); Potassium 3.5 mEq/L (3.5-5.1); Protein, Total 6.5 g/dL (6.4-8.2)
--- NOTE | 2024-02-18 07:47 | RAD REPORT ---
EXAM DESCRIPTION: RAD - Abdomen 1 View (KUB) - 02/18/2024 6:55 am CLINICAL HISTORY: Abdomen pain FINDINGS: The bowel gas pattern is unremarkable. No significant abnormal calcification is displayed
[2024-02-18] MEDS: CIPROFLOXACIN HCL 500 MG TAB PO SCH (07:57)
[2024-02-18] MEDS: metroNIDAZOLE 500 MG TABLET PO SCH (07:57)
[2024-02-18 08:28] LABS: Atypical Lymphocytes 1 %; Differential Total Cells Count 100; Eosinophils 2 % (0-3); Lymphocytes 57 % (15-42); Monocytes 4 % (0-10); Platelet Estimate ADEQ; Segmented Neutrophils 36 % (40-80)
[2024-02-18 08:29] LABS: Blood Morphology Comment NOT SEEN (NOT SEEN)
--- NOTE | 2024-02-18 12:02 | P.PN ---
Date of Service: 02/18/24 Subjective: feeling better today abdominal pain slowly improving nausea/vomiting/diarrhea resolved no issues overnight ROS: 10 point ROS as noted above, otherwise negative Physical Exam: GEN: Alert, oriented, NAD CV: Regular rate and rhythm, no edema Pulm: Nonlabored respirations on room air, clear bilaterally ABD: Soft, mild tenderness - diffuse / mostly perimumbilical, nondistended Neuro: Normal speech, normal affect vitals reviewed Problem List: Abdominal pain; Possible ileus vs enteritis Hx recurrent diverticulitis, s/p resection with reanastomosis (~August 2023) Atypical chest pain Hypertension Abdominal pain; Possible ileus vs enteritis Hx recurrent diverticulitis, s/p resection with reanastomosis (~August 2023) Presents with atypical lower chest pain, cramping abdominal pains. Had 1 episode of non-bloody diarrhea prior to onset of pain. +new onset vomiting Has History of diverticulitis episodes. Required colon resection with reanastomosis earlier this year ~August due to his recurrent diverticulitis Given his GI symptoms, and possible ileus on imaging, the lower chest discomfort would be more consistent with a GI etiology CT Chest/abd (02/14): minimal prominent proximal small bowel loops suggesting mild ileus / enteritis. No evidence of dilatation or free air. Also noted: stable umbilical hernia containing omentum/small bowel. Mild fatty liver infiltrate. Stable upper pole hyperdense left renal cyst. KUB (02/16): Probable ileus KUB (02/17): unremarkable. continue empiric flagyl / cefepime (02/15-) afebrile, no leukocytosis elevated bands on diff Advance to soft foods pain control - tolerating oral pain meds IV pepcid BID Atypical chest pain Reports feeling a fluttering in his chest intermittently over the last 7 years, lasting for minutes to hours, approximately occurring 34 times a year Denies any immediate family members having history of any cardiac issues. Troponins negative x 3 CXR negative Given his GI symptoms, and possible ileus on imaging, the lower chest discomfort would be more consistent with a GI etiology Overall cardiac risk is low Hypertension confirm home meds, restart as appropriate VTE: Lovenox Code: Full Dispo: Home, ~1 day pain improves, nausea resolves Time Spent Managing Pts Care (In Minutes): 41
[2024-02-18 12:37] VITALS: BP 147/81; TEMP 98.1
--- NOTE | 2024-02-19 06:44 | P.DS ---
Admission Date: 02/16/24 Discharge Date: 02/18/24 Disposition: ROUTINE DISCHARGE Discharge Condition: GOOD Reason for Admission: Chest and abdominal pain Brief History of Present Illness: 49yo M, PMH: hypertension, pancreatitis as well as recurrent bouts diverticulitis in the past requiring bowel resection and anastomosis 6 months ago;, patient presented with new onset chest pain located in the substernal area and radiating to the upper abdominal area. Patient also complaining of similar abdominal pain nonradiating generalized cramping in pattern. Patient is mainly complaining of abdominal pain at the time of interview. She rates pain at about 9-10 out of 10. He said he had a bout of diarrhea prior to onset of pain symptoms. Diarrhea was 1 episode nonbloody. Patient admits to new onset vomiting today nonbilious with no hematemesis. He presented to the emergency room because of worsening symptoms. On arrival in the ED vital signs were stable afebrile, laboratory workup shows normal CBC, BMP was unremarkable except for glucose of 158. Initial set of troponin was negative. Lipase was normal at 11. Urinalysis was also unremarkable. Chest x-ray shows no acute infiltrate. Abdominal CT shows mild ileus on prelim reading. Full report pending. patient is being admitted for rule out chest pain as well as abdominal ileus Hospital Course: Problem List: Abdominal pain; Possible ileus vs enteritis Hx recurrent diverticulitis, s/p resection with reanastomosis (~August 2023) Atypical chest pain Hypertension Physician discharge instructions: Patient presented with crampy abdominal pain / atypical lower chest discomfort associated with nausea/vomiting, secondary to enteritis, and possible ileus. CT Chest/abdomen on admission noted minimal prominent proximal small bowel loops suggesting possible mild ileus vs enteritis. KUB xray with findings suggestive of ileus. He was given empiric antibiotics in addition to bowel rest, fluid hydration, and had improvement of his symptoms. Diet was slowly advanced and abdominal pain improved with time. Patient was feeling better, abdominal pain improving and tolerable on oral pain medication, vomiting/diarrhea resolved, and was deemed stable for discharge. Patient able to tolerate soft and bite sized diet on day of discharge without issues. Recommend to continue soft food diet for the next ~3 days and then slowly ease back into regular diet as tolerated. Patient is to complete 8 more days of cipro and flagyl on discharge for total of 10 days. In the ED, patient reports feeling a fluttering in his chest intermittently over the last 7 years, lasting for minutes to hours, approximately occurring 34 times a year. Troponins were negative x3. Chest xray was negative. Overall cardiac risk is low and no further inpatient testing needed. No further episodes. Recommend follow up with PCP and consider Cardiology follow up as outpatient for further evaluation Medications: Cipro , Flagyl x 8 more days Tylenol #3 as needed for pain Follow up: PCP 3-5 days Please call to schedule / confirm appointments Physical Exam: GEN: Alert, oriented, NAD CV: Regular rate and rhythm, no edema Pulm: Nonlabored respirations on room air, clear bilaterally ABD: Soft, nontender, nondistended Neuro: Normal speech, normal affect Vital Signs/Physical Exam: Temp Pulse Resp BP Pulse Ox 98.1 F 74 16 147/81 H 100 02/18/24 12:00 02/18/24 12:00 02/18/24 12:00 02/18/24 12:00 02/18/24 12:00 Laboratory Data at Discharge: WBC 6.20 thou/uL (4.3-10.9) 02/18/24 05:51 Hgb 12.0 g/dL (13.6-17.9) L 02/18/24 05:51 Hct 35.4 % (39.6-49.0) L 02/18/24 05:51 Plt Count 222 thou/uL (152-406) 02/18/24 05:51 PT 12.4 SECONDS (9.4-12.5) 02/15/24 22:48 INR 1.11 02/15/24 22:48 Sodium 136 mEq/L (136-145) 02/18/24 05:51 Potassium 3.5 mEq/L (3.5-5.1) 02/18/24 05:51 BUN 7 mg/dL (7-18) 02/18/24 05:51 Creatinine 0.92 mg/dL (0.70-1.30) 02/18/24 05:51 Glucose 135 mg/dL (74-106) H 02/18/24 05:51 Magnesium 1.9 mg/dL (1.6-2.4) 02/18/24 05:51 Total Bilirubin 0.3 mg/dL (0.2-1.0) 02/18/24 05:51 AST 19 U/L (15-37) 02/18/24 05:51 ALT 29 U/L (16-61) 02/18/24 05:51 Alkaline Phosphatase 82 U/L (45-117) 02/18/24 05:51 Lipase 22 U/L (13-75) 02/17/24 04:25 Home Medications: Ciprofloxacin HCl [Cipro] 500 mg PO Q12H 8 Days #16 tab 02/18/24 Codeine/APAP [Tylenol W/Codeine #3 tab] 1 tab PO Q6HP PRN #10 tab 02/18/24 metroNIDAZOLE [Flagyl] 500 mg PO Q8H 8 Days #24 tab 02/18/24 New Medications: Codeine/APAP [Tylenol W/Codeine #3 tab] 1 tab PO Q6HP PRN #10 tab PRN Reason: Pain Ciprofloxacin HCl [Cipro] 500 mg PO Q12H 8 Days #16 tab metroNIDAZOLE [Flagyl] 500 mg PO Q8H 8 Days #24 tab Physician Discharge Instructions: Physician discharge instructions: Patient presented with crampy abdominal pain / atypical lower chest discomfort associated with nausea/vomiting, secondary to enteritis, and possible ileus. CT Chest/abdomen on admission noted minimal prominent proximal small bowel loops suggesting possible mild ileus vs enteritis. KUB xray with findings suggestive of ileus. He was given empiric antibiotics in addition to bowel rest, fluid hydration, and had improvement of his symptoms. Diet was slowly advanced and abdominal pain improved with time. Patient was feeling better, abdominal pain improving and tolerable on oral pain medication, vomiting/diarrhea resolved, and was deemed stable for discharge. Patient able to tolerate soft and bite sized diet on day of discharge without issues. Recommend to continue soft food diet for the next ~3 days and then slowly ease back into regular diet as tolerated. Patient is to complete 8 more days of cipro and flagyl on discharge for total of 10 days. In the ED, patient reports feeling a fluttering in his chest intermittently over the last 7 years, lasting for minutes to hours, approximately occurring 34 times a year. Troponins were negative x3. Chest xray was negative. Overall cardiac risk is low and no further inpatient testing needed. No further episodes. Recommend follow up with PCP and consider Cardiology follow up as outpatient for further evaluation Medications: Cipro , Flagyl x 8 more days Tylenol #3 as needed for pain Follow up: PCP 3-5 days Please call to schedule / confirm appointments Followup: OOT,OOT [Primary Care Provider] - 1 Week (Call for appointment.) Time spent managing pt's care (in minutes): 45
== END 2024-02-18 14:55 | disposition home or self-care (01) | DRG 394 ==
LOC: ER 21:52 → ERHOLD 02-16 00:57 → 2ND 02-16 02:27
PROVIDERS: ADMIT Internal Medicine; ATTEND Hospitalist
DX: K91.89 Other postprocedural complications and disorders of digestive system (principal); K56.7 Ileus, unspecified; I10 Essential (primary) hypertension; E66.9 Obesity, unspecified; K52.9 Noninfective gastroenteritis and colitis, unspecified; Z88.5 Allergy status to narcotic agent; Z68.39 Body mass index [BMI] 39.0-39.9, adult; Z90.49 Acquired absence of other specified parts of digestive tract; Y83.8 Other surgical procedures as the cause of abnormal reaction of the patient, or of later complication, without mention of misadventure at the time of the procedure
CPT/HCPCS: 36415; 71045; 71260; 74018; 74177; 80048; 80053; 80076; 81001; 83690; 83735; 83880; 84484; 85025; 85610; 93005; 96361; 96374; 96375; 99285; J0692; J1170; J1200; J1650; J2405; J3010; J7030; J7042; Q9967

== ENCOUNTER 2024-09-26 06:21 | Emergency (ER) | payer BC ==
[2024-09-26] MEDS ORDERED: NA CHLORIDE 0.9% 1,000 ML ONE (07:32)
[2024-09-26] MEDS ORDERED: FENTANYL CITR 100 MCG/2 ML ONE (07:32)
[2024-09-26] MEDS ORDERED: ONDANSETRON 4 MG/2 ML VIAL ONE (07:32)
--- NOTE | 2024-09-26 07:44 | RAD REPORT ---
EXAMINATION: ONE VIEW CHEST XR CLINICAL INDICATION: CHEST PAIN TECHNIQUE: Frontal chest projection is submitted. Examination is limited by patient positioning and t echnique. COMPARISON: 02/07/2024 FINDINGS: The lungs are well inflated and clear. The heart is normal in size. No displaced fractures identified . IMPRESSION: No acute intrathoracic abnormalities.
[2024-09-26 08:51] LABS: Absolute Basophils 0.1 K/uL (0-0.5); Absolute Eosinophils 0.1 K/uL (0-0.5); Absolute Lymphocytes (CBC) 3.7 K/uL (0.7-4.9); Absolute Monocytes 0.6 K/uL (0.1-1.3); Absolute Neutrophil 2.8 K/uL (1.8-8.0); Basophils % 1.2 % (0-1.3); Eosinophils % 1.2 % (0-4.4); Hematocrit 41.8 % (39.6-49.0); Hemoglobin 14.1 g/dL (13.6-17.9); Lymphocytes % 51.2 % (15.3-44.8); MCH 28.5 pg (27.0-35.0); MCHC 33.8 g/dL (32.0-36.0); MCV 84.1 fL (80-100); MPV 9.7 fL (7.6-11.3); Neutrophils % 38.4 % (41.7-73.7); Nucleated Red Blood Cells % 0.2 % (0-0); Platelets 225 thou/uL (152-406); RBC Red Blood Cell Count 4.96 M/uL (4.33-5.43); Red Cell Distribution Width 13.7 % (12.1-15.2)
--- NOTE | 2024-09-26 09:00 | RAD REPORT ---
EXAM: CT CHEST, ABDOMEN AND PELVIS WITHOUT CONTRAST CLINICAL INDICATION: ABDOMINAL DISTENTION TECHNIQUE: CT chest, abdomen and pelvis was performed without contrast, as per department protocol. A xial, sagittal and coronal reconstructions were obtained. One or more of the following dose reduction techniques were used: Automated exposure control, adjustment of the mA and/or kV according to patient size, and/or iterative reconstruction. Unless otherwise specified, incidental findings do not require dedicated imaging follow-up. Examination is limited by the lack of intravenous contrast material. COMPARISON: 02/07/2024 FINDINGS: LUNGS: Mild linear atelectasis in the right lung base. No focal infiltrate is seen. PLEURA: No pleural effusion. No pneumothorax. MEDIASTINUM AND LYMPH NODES: No mediastinal mass or fluid collection. Normal size mediastinal, hilar, and axillary lymph nodes. OSSEOUS STRUCTURES AND CHEST WALL: Intact. LIVER: Normal in size and contour. No focal lesion or biliary dilatation. Cholecystectomy clips. PANCREAS: No mass, ductal dilation, or barry-pancreatic fluid. SPLEEN: Normal size. No focal lesion. ADRENALS: Normal; no mass. KIDNEYS: Bilateral renal cysts including 35 mm hyperdense cyst left kidney, unchanged. Several calcif ications also present within this cyst. No hydronephrosis. URINARY BLADDER: Normal contour. GASTROINTESTINAL TRACT: No bowel obstruction, free air, significant free fluid or abscess. Postsurg ical changes are present about sigmoid colon. Large anterior abdominal wall surgical defect. APPENDIX: Appendix surgically absent. LYMPH NODES: No lymphadenopathy. MUSCULOSKELETAL: No acute or suspicious osseous abnormality. OTHER: IMPRESSION: No acute abnormalities seen in the chest, abdomen or pelvis.
[2024-09-26 09:10] LABS: PT Prothrombin Time 14.6 SECONDS (10-13.0); Protime INR 1.3
[2024-09-26 09:13] LABS: Albumin 3.6 g/dL (3.4-5.0); Albumin/Globulin Ratio 0.7 (1.1-1.8); Anion Gap 13.5 mEq/L (5.0-15.0); Bilirubin Direct 0.2 mg/dL (0-0.2); Bilirubin Indirect, Calculated 0.7 mg/dL (0.2-0.8); Bilirubin Total 0.9 mg/dL (0.2-1.0); Magnesium 2.2 mg/dL (1.6-2.4); Potassium 3.5 mEq/L (3.5-5.1); Protein, Total 8.6 g/dL (6.4-8.2); Troponin High Sensitivity 9.3 pg/mL (<58.9)
--- NOTE | 2024-09-26 09:48 | ER ---
Nurse's Notes [facility] Name: Pietro Maxwell Age: 49 yrs Sex: Male : 1975 Arrival Date: 09/26/2024 Time: 06:21 Bed 20 Private MD: Diagnosis: Nausea with vomiting, unspecified;Abdominal pain, Generalized Presentation: 09/26 06:25 Chief complaint: Patient states: CHEST PAIN THAT STARTED ONE HOUR AGO, NAUSEA AND ha1 VOMITING FOR THE PAST 9 DAYS. 06:25 Coronavirus screen: Client denies travel out of the [place] in the last 14 days. Ebola ha1 Screen: No symptoms or risks identified at this time. Initial Sepsis Screen: Does the patient meet any 2 criteria? No. Patient's initial sepsis screen is negative. Does the patient have a suspected source of infection? No. Patient's initial sepsis screen is negative. Risk Assessment: Do you want to hurt yourself or someone else? Patient reports no desire to harm self or others. Onset of symptoms was September 26, 2024. 06:25 Method Of Arrival: Ambulatory ha1 06:25 Acuity: ELSA 2 ha1 Historical: - Allergies: 06:25 Morphine; ha1 06:25 IV CONTRAST; ha1 - PMHx: 06:25 bowel obstruction; Diverticulitis; Hypertensive disorder; Pancreatitis; ha1 - PSHx: 06:25 Appendectomy; Cholecystectomy; Colectomy; ha1 - Immunization history:: Adult Immunizations up to date. - Infectious Disease History:: Denies. - Social history:: Smoking status: Patient denies any tobacco usage or history of. - Family history:: not pertinent. Screenin:53 Abuse screen: Denies threats or abuse. Denies injuries from another. Nutritional ha1 screening: No deficits noted. Tuberculosis screening: No symptoms or risk factors identified. 07:25 [facility] ED Fall Risk Assessment (Adult) History of falling in the last 3 months, ph including since admission No falls in past 3 months (0 pts) Confusion or Disorientation No (0 pts) Intoxicated or Sedated No (0 pts) Impaired Gait No (0 pts) Mobility Assist Device Used No (0 pt) Altered Elimination No (0 pt) Score/Fall Risk Level 0 - 2 = Low Risk Oriented to surroundings, Maintained a safe environment, Hourly rounding (assess needs \T\ fall precautionary measures) done. Assessment: 08:46 General: Appears in no apparent distress. Behavior is calm, cooperative. Pain: ph Complains of pain in chest and abdomen Pain does not radiate. Neuro: Level of Consciousness is awake, alert, obeys commands, Oriented to person, place, time, situation. Cardiovascular: Reports chest pain, nausea, vomiting, Capillary refill < 3 seconds in bilateral fingers Patient's skin is warm and dry. Respiratory: Airway is patent Respiratory effort is even, unlabored. GI: Abdomen is round non-distended, Reports lower abdominal pain, nausea, vomiting. Derm: Skin is pink, warm \T\ dry. 10:17 Reassessment: Patient appears in no apparent distress at this time. Patient and/or ph family updated on plan of care and expected duration. Pain level reassessed. Patient is alert, oriented x 3, equal unlabored respirations, skin warm/dry/pink. Vital Signs: 06:25 BP 134 / 102; Pulse 90; Resp 19 S; Temp 98.1(O); Pulse Ox 99% on R/A; Weight 108.86 kg; ha1 Height 6 ft. 0 in. ; Pain 8/10; 07:30 BP 132 / 89; Pulse 85; Resp 18; Pulse Ox 100% on R/A; ph 08:59 BP 126 / 90; Pulse 86; Resp 18; Pulse Ox 95% on R/A; ph 10:18 BP 117 / 78; Pulse 81; Resp 18; Temp 97.9; Pulse Ox 98% on R/A; ph 06:25 Body Mass Index 32.55 (108.86 kg, 182.88 cm) ha1 06:25 Pain Scale: Adult ha1 Jenelle Coma Score: 06:53 Eye Response: spontaneous(4). Motor Response: obeys commands(6). Verbal Response: sp4 oriented(5). Total: 15. ED Course: 06:23 Patient arrived in ED. [id number] 06:30 Obinna Lemons RN is Primary Nurse. rg5 06:35 Satya Johnson MD is Attending Physician. sp4 06:45 Missed attempt(s): 20 gauge in right antecubital area. Bleeding controlled, band aid ha1 applied, catheter tip intact. 06:50 XRAY Chest (1 view) In Process Unspecified. EDMS 06:51 Triage completed. ha1 07:06 Primary Nurse role handed off by Obinna Lemons, ESTHELA bd 07:15 Missed attempt(s): 22 gauge in left antecubital area. Bleeding controlled, band aid jl7 applied, catheter tip intact. 07:17 Attending Physician role handed off by Satya Johnson MD gb1 07:17 Emily Siddiqui MD is Attending Physician. gb1 07:24 Verenice Oneal RN is Primary Nurse. ph 07:25 Arm band placed on Patient placed in an exam room. ph 07:26 Missed attempt(s): 22 gauge in left antecubital area. Bleeding controlled, band aid ph applied, catheter tip intact. Patient maintains SpO2 saturation greater than 95% on room air. 07:26 Patient has correct armband on for positive identification. Bed in low position. Call ph light in reach. Side rails up X 1. Pulse ox on. NIBP on. Door closed. Noise minimized. Warm blanket given. 07:55 Missed attempt(s): 24 gauge in left hand. Bleeding controlled, band aid applied, ph catheter tip intact. 08:48 CT Chest Abdomen Pelvis W/O Contrast In Process Unspecified. EDMS 08:50 Accessed peripheral vein via ultrasound, utilizing dynamic ultrasound technique using ph accessed w/ # 20 Elliott needle, Clean \T\ dry. Dressing intact. Good blood return. Flushes easily. 10:17 No provider procedures requiring assistance completed. IV discontinued, intact, ph bleeding controlled, No redness/swelling at site. Pressure dressing applied. Administered Medications: 08:35 Drug: fentaNYL (PF) IVP 100 mcg IVP once Route: IVP; Site: right wrist; ph 15:02 Follow up: Response: No adverse reaction ph 08:35 Drug: Ondansetron IVP 8 mg IVP once; over 2 minutes Route: IVP; Site: right wrist; ph 09:30 Follow up: Response: No adverse reaction; Nausea unchanged ph 09:01 Drug: NS 0.9% IV 1000 ml IV at 1000 ml once; to be given as a bolus over 60 minutes ph Route: IV; Rate: 1000 ml; Site: left antecubital; 10:15 Follow up: Response: No adverse reaction; IV Status: Completed infusion; IV Intake: ph 1000ml 09:47 CANCELLED (Other Intervention Used): rocephin2 grams IV at bolus once; Given slow IV ph push per pharmarcy instructions 10:12 Not Given (Patient Refused): ondansetron4 mg PO once ph Medication: 07:26 VIS not applicable for this client. ph Intake: 10:15 IV: 1000ml; Total: 1000ml. ph Outcome: :47 Discharge ordered by . gb1 10:18 Discharged to home ambulatory, ph 10:18 Condition: good 10:18 Discharge instructions given to patient, Instructed on discharge instructions, follow up and referral plans. medication usage, Demonstrated understanding of instructions, follow-up care, medications, Prescriptions given X 1, 10:19 Patient left the ED. ph Signatures: Dispatcher [employer] EDMS Beverly Mendoza Patricia, RN RN ph Gilma Freed RN RN jl7 Pricilla Duval6 Cynthia Isaac RN RN ha1 Satya Johnson MD MD sp4 Emily Siddiqui MD MD gb1 Obinna Lemons RN RN rg5 Corrections: (The following items were deleted from the chart) 09:02 08:59 Pulse 86bpm; Resp 18bpm; Pulse Ox 95% RA; ph ph 10:18 10:18 BP 117 / 78; Pulse 81bpm; Resp 18bpm; Pulse Ox 98% RA; ph ph
--- NOTE | 2024-09-26 09:48 | EDPHYS ---
Physician Documentation [facility] Name: Pietro Maxwell Age: 49 yrs Sex: Male : 1975 Arrival Date: 09/26/2024 Time: 06:21 Bed 20 Private MD: ED Physician Emily Siddiqui HPI: 09/26 06:35 This 49 yrs old Black Male presents to ER via Unassigned with complaints of Chest Pain, sp4 Nausea/Vomiting, Abdominal Pain. 06:53 49-year-old male presents with acute chest pain nausea vomiting abdominal pain sp4 associated with abdominal distention. History of small bowel obstruction partial small bowel resection August 23, 2024 at [facility]. Patient was admitted from 08/23/2024 through 09/14/2024. Patient presents now with worsening nausea vomiting and abdominal pain associated with chest pain starting 9 days ago.. Historical: - Allergies: 06:25 Morphine; ha1 06:25 IV CONTRAST; ha1 - PMHx: 06:25 bowel obstruction; Diverticulitis; Hypertensive disorder; Pancreatitis; ha1 - PSHx: 06:25 Appendectomy; Cholecystectomy; Colectomy; ha1 - Immunization history:: Adult Immunizations up to date. - Infectious Disease History:: Denies. - Social history:: Smoking status: Patient denies any tobacco usage or history of. - Family history:: not pertinent. ROS: 06:53 Constitutional: Negative for fever, chills, and weight loss, positive chest pain, sp4 positive abdominal pain, positive abdominal distention, positive nausea vomiting 06:53 All other systems are negative, Exam: 06:53 Constitutional: This is a well developed, well nourished patient who is awake, alert, sp4 and in no acute distress. Head/Face: Normocephalic, atraumatic. Eyes: Pupils equal round and reactive to light, extra-ocular motions intact. Lids and lashes normal. Conjunctiva and sclera are not injected. Cornea within normal limits. Periorbital areas with no swelling, redness, or edema. ENT: Nares patent. No nasal discharge, no septal abnormalities noted. Tympanic membranes are normal and external auditory canals are clear. Oropharynx with no redness, swelling, or masses, exudates, or evidence of obstruction, uvula midline. Mucous membranes moist. Neck: Trachea midline, no thyromegaly or masses palpated, and no cervical lymphadenopathy. Supple, full range of motion without nuchal rigidity, or vertebral point tenderness. Chest/axilla: Normal chest wall appearance and motion. Nontender with no deformity. No lesions are appreciated. Cardiovascular: Regular rate and rhythm with a normal S1 and S2. No gallops, murmurs, or rubs. Normal PMI, no JVD. No pulse deficits. Respiratory: Lungs have equal breath sounds bilaterally, clear to auscultation and percussion. No rales, rhonchi or wheezes noted. No increased work of breathing, no retractions or nasal flaring. Abdomen/GI: Soft, with normal bowel sounds. No distension or tympany. No guarding or rebound. No evidence of tenderness throughout. Back: No spinal tenderness. No costovertebral tenderness. Skin: Warm, dry with normal turgor. Normal color with no rashes, no lesions, and no evidence of cellulitis. MS/ Extremity: Pulses equal, no cyanosis. Neurovascular intact. Full, normal range of motion. Neuro: Awake and alert, GCS 15, oriented to person, place, time, and situation. Cranial nerves II-XII grossly intact. Motor strength 5/5 in all extremities. Sensory grossly intact. Psych: Awake, alert, with orientation to person, place and time. Behavior, mood, and affect are within normal limits 06:53 ECG was reviewed by the Attending Physician. EKG at 0 642 normal sinus rhythm normal EKG Vital Signs: 06:25 BP 134 / 102; Pulse 90; Resp 19 S; Temp 98.1(O); Pulse Ox 99% on R/A; Weight 108.86 kg; ha1 Height 6 ft. 0 in. ; Pain 8/10; 07:30 BP 132 / 89; Pulse 85; Resp 18; Pulse Ox 100% on R/A; ph 08:59 BP 126 / 90; Pulse 86; Resp 18; Pulse Ox 95% on R/A; ph 10:18 BP 117 / 78; Pulse 81; Resp 18; Temp 97.9; Pulse Ox 98% on R/A; ph 06:25 Body Mass Index 32.55 (108.86 kg, 182.88 cm) [facility] 06:25 Pain Scale: Adult ha1 [place] Coma Score: 06:53 Eye Response: spontaneous(4). Motor Response: obeys commands(6). Verbal Response: sp4 oriented(5). Total: 15. MDM: 06:38 Medical Screening Exam initiated sp4 06:55 Differential diagnosis: acute pericarditis, anxiety, chest wall pain, cholecystitis, sp4 Cholelithiasis costochondritis, esophagitis, gastritis. HEART Score: History: Slightly Suspicious (0), ECG: Normal (0), Age: > 45 and < 65 years (1), Risk Factors: 1 or 2 risk factors (1), Troponin: < or = 1 x Normal Limit (0), Total Score = 2. Data reviewed: vital signs, nurses notes, lab test result(s), EKG, radiologic studies, CT scan. 06:55 Transition of care: After a detail discussion of the patient's case, care is sp4 transferred to Emily Siddiqui MD. 09:49 ED course: I received this patient turnover from at 7:[address] gb1 scan of the abdomen and pelvis. I did not see any acute intra-abdominal areas of infection or abscess. No signs of small bowel obstruction the patient is postop a partial colectomy however today he is able to tolerate fluids by mouth prior to discharge home and needs to follow-up with his operating surgeon of record. That surgeon is at [facility] and his name is Dr. Del Castillo. Patient has an previously established and scheduled appointment with him on next Tuesday. I urged the patient to call the office today upon discharge and see if and get his appointment possibly moved to or Tuesday of this week. Patient has pain medication that was previously prescribed by his operating surgeon to be Dilaudid and I also sent him home with some additional Zofran for nausea vomiting and of it encouraged him to advance his diet as tolerated. I advised him to start with clears and then advance from there. Patient is compliant with his plan of care at discharge today.. 09/26 06:36 Order name: Basic Metabolic Panel; Complete Time: 09:32 sp4 09/26 06:36 Order name: CBC with Diff; Complete Time: 09:32 sp4 09/26 06:36 Order name: LFT's; Complete Time: :32 sp4 09/26 06:36 Order name: Magnesium; Complete Time: 09:32 sp4 09/26 06:36 Order name: NT PRO-BNP; Complete Time: 09:32 sp4 09/26 06:36 Order name: PT-INR; Complete Time: 09:32 sp4 09/26 06:36 Order name: Troponin HS; Complete Time: 09:32 sp4 09/26 06:36 Order name: Lipase; Complete Time: 09:32 sp4 09/26 06:36 Order name: XRAY Chest (1 view); Complete Time: 09: sp4 09/26 06:49 Order name: CT Chest Abdomen Pelvis W/O Contrast; Complete Time: 09:01 sp4 09/26 06:36 Order name: Cardiac monitoring; Complete Time: 06:45 sp4 09/26 06:36 Order name: EKG - Nurse/Tech; Complete Time: 06:45 sp4 09/26 06:36 Order name: IV Saline Lock; Complete Time: 08:46 sp4 09/26 06:36 Order name: Labs collected and sent; Complete Time: 08:46 sp4 09/26 06:36 Order name: O2 Per Protocol; Complete Time: 06:45 sp4 09/26 06:36 Order name: O2 Sat Monitoring; Complete Time: 06:45 sp4 EC:42 Rate is 87 beats/min. Rhythm is regular, Normal Sinus Rhythm. QRS [place] is Normal. MT sp4 interval is normal. QRS interval is normal. QT interval is normal. No Q waves. T waves are Normal. No ST changes noted. Clinical impression: Normal ECG. Interpreted by me. Reviewed by me. Administered Medications: 08:35 Drug: fentaNYL (PF) IVP 100 mcg IVP once Route: IVP; Site: right wrist; ph 15:02 Follow up: Response: No adverse reaction ph 08:35 Drug: Ondansetron IVP 8 mg IVP once; over 2 minutes Route: IVP; Site: right wrist; ph 09:30 Follow up: Response: No adverse reaction; Nausea unchanged ph 09:01 Drug: NS 0.9% IV 1000 ml IV at 1000 ml once; to be given as a bolus over 60 minutes ph Route: IV; Rate: 1000 ml; Site: left antecubital; 10:15 Follow up: Response: No adverse reaction; IV Status: Completed infusion; IV Intake: ph 1000ml 09:47 CANCELLED (Other Intervention Used): rocephin2 grams IV at bolus once; Given slow IV ph push per pharmarcy instructions 10:12 Not Given (Patient Refused): ondansetron4 mg PO once ph Disposition Summary: 09/26/24 09:47 Discharge Ordered Notes: Location: Home gb1 Problem: new gb1 Symptoms: have improved gb1 Condition: Stable gb1 Diagnosis - Nausea with vomiting, unspecified gb1 - Abdominal pain, Generalized gb1 Followup: gb1 - With: Private Physician - When: - Reason: Recheck today's complaints Discharge Instructions: - Discharge Summary Sheet gb1 - Abdominal Pain, Adult gb1 Forms: - Medication Reconciliation Form gb1 - Antibiotic Education gb1 - Prescription Opioid Use gb1 - Patient Portal Instructions gb1 - Leadership Thank You Letter gb1 Prescriptions: - Zofran 4 mg Oral Tablet - take 1 tablet ORAL route every 12 hours As needed; 20 tablet; Refills: 0, gb1 Product Selection Permitted Signatures: Dispatcher [employer] EDVerenice Troncoso RN RN Cynthia Isaac RN RN ha1 Satya Johnson MD MD sp4 Emily Siddiqui MD MD gb1 Corrections: (The following items were deleted from the chart) 06:36 06:36 BASIC METABOLIC PANEL+C.LAB.BRZ ordered. EDMS EDMS 06:36 06:36 CBC+H.LAB.BRZ ordered. EDMS EDMS 06:36 06:36 HEPATIC FUNCTION+C.LAB.BRZ ordered. EDMS EDMS 06:36 06:36 MAGNESIUM+C.LAB.BRZ ordered. EDMS EDMS 06:36 06:36 PROBNP+C.LAB.BRZ ordered. EDMS EDMS 06:36 06:36 PROTIME (+INR)+COAG.LAB.BRZ ordered. EDMS EDMS 06:36 06:36 Troponin High Sensitivity+C.LAB.BRZ ordered. EDMS EDMS 06:36 06:36 Chest Single View+RAD.RAD.BRZ ordered. EDMS EDMS 06:36 06:36 LIPASE+C.LAB.BRZ ordered. EDMS EDMS 09:47 09:11 Rocephin IV 2 grams IV at bolus once; Given slow IV push per pharmarcy ph instructions ordered. gb1 09:47 09:47 Rocephin IV 2 grams IV at bolus once; Given slow IV push per pharmarcy ph instructions ordered. ph
[2024-09-26 10:26] VITALS: BP 117/78; TEMP 97.9; O2SAT 98
--- NOTE | 2024-09-26 11:56 | EKG ---
Test Date: 2024-09-26 Test Time: 06:42:23 [employer] Teacher: BRINA MEASUREMENT RESULTS: Intervals: Rate: 87 RI: 174 QRSD: 84 QT: 362 QTc: 435 Embudo: P: 73 RI: 174 QRS: -11 T: 5 INTERPRETIVE STATEMENTS: Normal sinus rhythm Normal ECG Compared to ECG 02/15/2024 22:03:59 Left ventricular hypertrophy no longer present Myocardial infarct finding no longer present Electronically Signed On 09-26-24 11:55:12 CDT by Jon Rouse
== END 2024-09-26 10:19 | disposition home or self-care (01) ==
LOC: ER 06:21
DX: R10.84 Generalized abdominal pain (principal); R11.2 Nausea with vomiting, unspecified; I10 Essential (primary) hypertension; Z90.49 Acquired absence of other specified parts of digestive tract; Z88.5 Allergy status to narcotic agent; Z91.041 Radiographic dye allergy status
CPT/HCPCS: 96361; 93005; 85025; 80048; 36415; 83735; 85610; 80076; 84484; 83690; 83880; 71250; 74176; 71045; 96375; 96374; 99284; J3010; J2405; J7030